=== PATIENT | female | born 1970 | race Caucasian/White ===

== ENCOUNTER → 2017-12-25 15:19 | Outpatient (POV) | payer BC, SELFPAY | PROVIDERS: Visit Provider Nurse Practitioner Acute Care | DX: Z00.00 Encounter for general adult medical examination without abnormal findings (principal) ==

== ENCOUNTER → 2018-07-11 16:40 | Outpatient (CLI) | payer BC, SELFPAY ==
--- NOTE | 2018-07-11 16:52 | XR_ITS ---
EXAM: XR cervical spine 2V HISTORY: ITS.REASON: NECK PAIN ORDERING PHYSICIAN: RODIR Pierre PATIENT AGE: 48 years COMPARISON: None FINDINGS: No fracture or dislocation. The disc spaces are well-preserved. There is 2 mm anterolisthesis of C3 on C4 which may be positional. No significant arthritic changes evident. IMPRESSION: No acute finding
== END ==
PROVIDERS: PCP Physician Assistant; Visit Provider Physician Assistant
DX: M54.2 Cervicalgia (principal)
CPT/HCPCS: 72040

== ENCOUNTER → 2018-08-13 15:27 | Outpatient (POV) | payer BC, SELFPAY | PROVIDERS: Visit Provider Nurse Practitioner Acute Care | DX: Z00.00 Encounter for general adult medical examination without abnormal findings (principal) ==

== ENCOUNTER → 2018-09-13 17:31 | Outpatient (CLI) | payer BC, SELFPAY ==
--- NOTE | 2018-09-13 17:35 | MM_ITS ---
MM Dig screening mamm BI w/CAD ORDERING PHYSICIAN : Hakeem Mckenna MD PATIENT AGE: 48 years GENDER: Female COMPARISON: January 2017, August 2017, left breast. May 2014,. Also October 2007 INDICATION: ITS.REASON: screening 48-year-old. Takes estrogen.. Previous benign needle biopsy left breast. No new complaints. Noncontributory family history. TECHNIQUE: Standard CC and MLO images were obtained. R2 CAD reviewed. Additional axillary cc view both breast included FINDINGS: . Dense heterogeneous breast bilaterally again evident. Mammography is of decreased sensitivity in breast of this overall increased density.. See no new areas of focal concern on today's mammogram and ultrasound or MR breast can be useful compliment/augment to mammography in breast of this increased density character. Multiple Prior films are helpful images show no discrete new findings. Similar asymmetric breast pattern pattern is similar to previous studies RIGHT BREAST: -Right breast appears stable. Follow-up in one year. LEFT BREAST:Asymmetric area breast density including deep upper-outer quadrant left breast is been seen previously and show no appreciable interval change. Follow up one year recommended. IMPRESSION: Dense breasts decreased sensitivity mammography but no significant new areas concern. Overall Stable bilateral mammogram Follow up one year recommended 2 BI-RADS Category: 2 Benign Finding(s) RECOMMENDED FOLLOW-UP: 1YR 1 YEAR FOLLOW-UP (A letter has been sent to the patient regarding results of the study.)
== END ==
PROVIDERS: PCP Family Medicine; Visit Provider Obstetrics & Gynecology
DX: Z12.31 Encounter for screening mammogram for malignant neoplasm of breast (principal)
CPT/HCPCS: 77067

== ENCOUNTER → 2019-06-04 11:52 | Outpatient (CLI) | payer BC, SELFPAY ==
--- NOTE | 2019-06-04 11:57 | XR_ITS ---
XR knee RT 3V HISTORY: Knee pain and swelling following injury ITS.REASON: FALL ON RIGHT KNEE ORDERING PHYSICIAN: Stefan Salgado MD PATIENT AGE: 48 years COMPARISON: None FINDINGS There is a nondisplaced oblique fractures of the superior aspect of the patella with a moderate size suprapatellar effusion. No other significant anomalies evident. IMPRESSION: Nondisplaced oblique fracture of the superior aspect of the patella with large size suprapatellar effusion
== END ==
PROVIDERS: PCP Family Medicine; Visit Provider Family Medicine
DX: M25.561 Pain in right knee (principal)
CPT/HCPCS: 73562

== ENCOUNTER 2019-06-05 14:40 | Outpatient (RCR) | payer BC, SELFPAY | END 2019-06-05 14:55 | disposition home or self-care (01) | LOC: PT 14:40 | PROVIDERS: Visit Provider Orthopaedic Surgery | DX: S82.001A Unspecified fracture of right patella, initial encounter for closed fracture (principal) | CPT/HCPCS: 97760 ==

== ENCOUNTER → 2019-06-24 08:40 | Outpatient (CLI) | payer BC, SELFPAY ==
--- NOTE | 2019-06-24 08:46 | XR_ITS ---
XR knee RT 3V HISTORY: ITS.REASON: rt knee pain follow-up patellar fracture ORDERING PHYSICIAN: Ana Carranza MD PATIENT AGE: 49 years COMPARISON: 06/04/2019 FINDINGS: Nondisplaced transverse fracture involves the superior aspect of the patella once again noted not significant change. Mild osteoarthritic changes noted of the medial compartment. The suprapatellar effusion has decreased in size. IMPRESSION: Decrease in the suprapatellar effusion. No change nondisplaced patellar fracture
== END ==
PROVIDERS: PCP Family Medicine; Visit Provider Orthopaedic Surgery
DX: S82.009A Unspecified fracture of unspecified patella, initial encounter for closed fracture (principal)
CPT/HCPCS: 73562

== ENCOUNTER → 2019-07-26 12:47 | Outpatient (CLI) | payer BC, SELFPAY ==
--- NOTE | 2019-07-26 12:57 | XR_ITS ---
PROCEDURE: XR KNEE RT 3V CLINICAL INDICATION: Rt Knee pain COMPARISON: No exams were available for comparison FINDINGS: There is an apparent nondisplaced incomplete fracture of the superior 3rd of the patella with the fracture line involving the articular cortex of the undersurface of the patella. There is underlying narrowing the patellofemoral space. There is no significant effusion noted. The medial and lateral joint space appear normal. IMPRESSION: Age indeterminate incomplete linear fracture superior 3rd of the patella Dictated by: Dr. Nicola Oliva MD 07/26/2019 13:[address] Nicola Oliva MD in [place] 07/26/2019 13:27
== END ==
PROVIDERS: PCP Family Medicine; Visit Provider Orthopaedic Surgery
DX: S82.001A Unspecified fracture of right patella, initial encounter for closed fracture (principal)
CPT/HCPCS: 73562

== ENCOUNTER → 2019-08-07 14:54 | Outpatient (CLI) | payer BC, SELFPAY ==
--- NOTE | 2019-08-07 15:07 | MR_ITS ---
PROCEDURE: MR KNEE RT WO CON CLINICAL INDICATION: Patella Fx Right knee pain, patellar fracture, pain and swelling COMPARISON: XR KNEE RT 3V from 07/26/2019 TECHNIQUE: Routine multiplanar multi echo sequences are performed without gadolinium enhancement. FINDINGS: The cruciate ligaments, collateral ligaments, patellar tendon, and quadriceps tendon have an unremarkable appearance. No evidence of meniscal tear. There is increased T2 signal involving the posterior aspect of the medial meniscus but does not meet strict MRI criteria for meniscal tear There is a fracture involving the superior pole of the patella with bone marrow edema involving the patella. Fracture line runs obliquely from the superior lateral aspect of the patella to the medial aspect slightly more inferior. The fracture is not distracted. Patellar cartilage is thinned along its lateral aspect. There is a small knee joint effusion. No patellar subluxation. There are mild osteoarthritic changes of the patellofemoral joint. There is a small knee joint effusion Bone marrow edema is present involving the medial aspect of the lateral femoral condyle. Small area of edema is present and the proximal tibia along the medial aspect of the lateral femoral condyle opposite the bone marrow edema within the distal femur consistent with bone contusions. Subarticular cystic changes involve the proximal tibia posteriorly near the insertion of the posterior cruciate ligament. IMPRESSION: 1. No evidence of internal derangement 2. Nondisplaced patellar fracture involving superior pole of the patella with bone marrow edema of the patella. 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 3. Bone bruise of the medial femoral condyle and medial aspect of the proximal tibia Dictated by: Chilango Ortez MD 08/09/2019 16:36 Electronically signed by Chilango Ortez MD in [place] 08/09/2019 16:36
== END ==
PROVIDERS: PCP Family Medicine; Visit Provider Orthopaedic Surgery
DX: S82.001A Unspecified fracture of right patella, initial encounter for closed fracture (principal)
CPT/HCPCS: 73721

== ENCOUNTER → 2019-09-09 15:15 | Outpatient (POV) | payer BC, SELFPAY | PROVIDERS: PCP Family Medicine; Visit Provider Nurse Practitioner Family | DX: Z00.00 Encounter for general adult medical examination without abnormal findings (principal) ==

== ENCOUNTER → 2019-09-13 07:48 | Outpatient (CLI) | payer BC, SELFPAY ==
--- NOTE | 2019-09-13 07:54 | XR_ITS ---
PROCEDURE: XR KNEE RT 3V CLINICAL INDICATION: knee pain Right knee pain COMPARISON: XR KNEE RT 3V from 07/26/2019 FINDINGS: No fracture or dislocation. No lytic or blastic change. There is normal mineralization. Minimal osteoarthritic change are present involving all 3 compartments. No fracture or dislocation. No lytic or blastic change. Small suprapatellar effusion is suspected. There does appear to be a nondisplaced fracture involving the superior aspect of the patella not significantly changed. IMPRESSION: No change nondisplaced patellar fracture with knee joint effusion and mild osteoarthritis Dictated by: Chilango Ortez MD 09/13/2019 13:43 Electronically signed by Chilango rOtez MD in [place] 09/13/2019 13:43
== END ==
PROVIDERS: PCP Family Medicine; Visit Provider Orthopaedic Surgery
DX: S82.001A Unspecified fracture of right patella, initial encounter for closed fracture (principal)
CPT/HCPCS: 73562

== ENCOUNTER 2019-09-17 09:00 | Outpatient (RCR) | payer BC, SELFPAY ==
--- NOTE | 2019-06-11 09:59 | HMH.PTOPEV ---
PT Outpatient Evaluation Rehab PT Outpatient Evaluation Start: 06/11/19 09:28 Freq: Status: Active Protocol: Document 06/11/19 09:28 ESPERANZA (Rec: 06/11/19 09:59 ESPERANZA [id number]) Electronically Signed By Isidro Blunt, PT 06/11/19 09:28 Outpatient Therapy Subjective History Subjective History Pt reports falling in garage at home on 06/03/19, Xrays revealed fx. of R patella. Pt placed in T-scope R knee brace locked at 0 degrees, which pt reports has improved wt. bearing stability. Pt reports mostly anterior R knee pain in origin, follow up 06/24/19. Chief Complaint Pain,Stiff,Swelling,Weakness Symptom Type Ache,Sharp,Dull Symptoms Relieved By Rest/Positioning,Ice Symptoms Aggravated By Standing,Walking Prior Functional Limitations None Current Functional Limitations Housework,Standing,Walking, Stairs Symptom Description Intermittent Level of pain today (0-10) 3 Pain scale - at its best (0-10) 0 Pain scale - at its worst (0-10) 6 Hip/Knee Eval Gait Observation General Gait Pattern Observation Antalgic Gait,Wide Based Gait Palpation Tenderness right Knee Palpation Finding Tenderness Knee Palpation Overall Comment 2-3/4 anterior jt line MMT Hip Flexion Strength Grade 3+ Fair+ Hip Abduction Strength Grade 3+ Fair+ Hip Adduction Strength Grade 3+ Fair+ Hip Extension Strength Grade 3+ Fair+ Knee Extension Strength Grade 3- Fair- Knee Flexion Strength Grade 3- Fair- ROM left Knee Flexion Active Range of Motion ( 0-135 degrees) right Knee Flexion Active Range of Motion ( 2-30 degrees) Knee ROM Limitations Pain Effusion joint effusion knee exam standard right Mid - Patellar Circumerential Measure ( 34.5 cm) Outpatient Therapy Assessment Impairments Problems/Impairmments Palpation Tenderness,Impaired Range of Motion,Impaired Strength,Impaired Gait Pattern ,Impaired Walking,Impaired Standing,Impaired Driving, Impaired Household Care, Impaired Stair Climbing, Impaired Squatting,Impaired Work Activities,Subjective C/O Pain,Impaired Self Care/Self Management Prognosis Rehab Potential Good
--- NOTE | 2019-08-06 16:11 | HMH.RHREAS ---
Rehab Reassessment Rehab OP Re-assessment Start: 08/06/19 16:06 Freq: Status: Active Protocol: Document 08/06/19 16:06 ESPERANZA (Rec: 08/06/19 16:10 ESPERANZA [id number]) Electronically Signed By Isidro Blunt, PT 08/06/19 16:06 Rehab Re-assessment Subjective Subjective PT REPORTS 0-2/10 ANTERIOR R KNEE PAIN ON VAS, AND FEELS PROGRESSIONS HAVE BEEN MADE WITH ROM AND STRENGTH SINCE I EVAL Objective Objective Notes AROM 0-125 MMT: R QUAD 3+/5, R HS 4-/5, R HIP FLX 4-/5, R HIP ABD/ADD/ EXT 4--4/5 TTP: PAT TENDON/ANT JT LINE 0- 11/23 R Assessment Progress Assessment Progressing as Expected Assessment Notes PT WITH MARKED IMPROVEMENT IN ROM, STRENGTH, AND GAIT Patient goals met STG'S 04/26 LTG'S 01/02 Goals Not Met STG'S 11/26, LTG'S 10/02 Plan Plan PT TO CONT. W/SKILLED P.T. TO MAKE FURTHER IMPROVEMENTS IN AROM, STRENGTH (QUAD CONTROL), TTP, AND GAIT TO ALLOW FOR OPTIMAL FUNCTION AND RETURN TO WORK FULL-DUTY Frequency of Therapy 1-2X/WK Duration of therapy 4-6 WKS Time and Billing Re-Eval Time 15 Re-Eval Billing Units 1 PHYSICIAN CERTIFICATION: I certify the specified therapy services for Anupama Liao are required, authorized, and reviewed every 30 days.
--- NOTE | 2019-09-05 08:50 | HMH.RHREAS ---
Rehab Reassessment Rehab OP Re-assessment Start: 08/06/19 16:06 Freq: Status: Active Protocol: Document 09/05/19 08:35 ESPERANZA (Rec: 09/05/19 08:50 ESPERANZA [id number]) Electronically Signed By Isidro Blunt, PT 09/05/19 08:35 Rehab Re-assessment Subjective Subjective PT REPORTS 0-2/10 R KNEE PAIN ON VAS, REPORTS CONTINUED SWELLING, AND FEELS 80% BETTER OVERALL SINCE I EVAL Objective Objective Notes AROM R KNEE FLX 0-125 MMT: R KNEE EXT 4-4+/5, FLX 4- 4+/5,R HIP FLX,ABD,ADD,EXT 4/5 TTP: R KNEE MEDIAL JT LINE 1/4 , LATERAL JT LINE 1/4 GAIT: MINIMALLY ANTALGIC, NO AD, 1-2 HRS AT HOME/COMMUNITY Assessment Progress Assessment Progressing as Expected Assessment Notes PT WITH IMPROVED STRENGTH, TTP , AROM, AND GAIT Patient goals met STG'S 05/26 LTG'S 08/02 Goals Not Met LTG'S 03/02 Plan Plan PT TO CONT. W/SKILLED P.T. TO MAKE FURTHER IMPROVEMENTS IN AROM, STRENGTH (QUAD CONTROL), TTP, AND GAIT TO ALLOW FOR OPTIMAL FUNCTION AND RETURN TO WORK FULL-DUTY Frequency of Therapy 1-2X/WK Duration of therapy 2-4 WKS Time and Billing Re-Eval Time 15 Re-Eval Billing Units 1 PHYSICIAN CERTIFICATION: I certify the specified therapy services for Anupama Liao are required, authorized, and reviewed every 30 days.
== END 2019-09-17 09:05 | disposition home or self-care (01) ==
LOC: PT 09:00
PROVIDERS: PCP Family Medicine; Visit Provider Orthopaedic Surgery
DX: S82.001A Unspecified fracture of right patella, initial encounter for closed fracture (principal)
CPT/HCPCS: 97010; 97014; 97016; 97110; 97163; 97164; G0283

== ENCOUNTER → 2019-09-19 17:47 | Outpatient (CLI) | payer BC, SELFPAY ==
--- NOTE | 2019-09-19 17:50 | MM_ITS ---
PROCEDURE: MM DIG SCREENING MAMM BI W/CAD CLINICAL INDICATION: screening There is no personal or family history of breast cancer. COMPARISON: [facility] DIG MAMM-SCREEN BAMBI W/CAD from 02/01/2017 D[facility] DIG MAMM-DX BAMBI W/CAD from 08/21/2017 [facility] MM Dig screening mamm BI w/CAD from 09/13/2018 TECHNIQUE: Standard CC and MLO images were obtained. R2 CAD reviewed. FINDINGS: Prominent diffuse somewhat heterogenic fibroglandular densities are seen. The findings are bilateral and symmetrical. There is no suspicious lesion and no suspicious microcalcifications. IMPRESSION: Moderate diffuse breast density with no suspicious lesions seen BI-RAD Category: 1 Negative FOLLOW-UP: 1YR 1 Year Follow-up (A letter has been sent to the patient regarding results of the study.) Dictated by: Dr. Nicola Oliva MD 09/23/2019 09:[address] Nicola Oliva MD in [place] 09/23/2019 09:36
== END ==
PROVIDERS: PCP Family Medicine; Visit Provider Obstetrics & Gynecology
DX: Z12.31 Encounter for screening mammogram for malignant neoplasm of breast (principal)
CPT/HCPCS: 77067

== ENCOUNTER → 2020-09-07 16:05 | Outpatient (CLI) | payer BC, SELFPAY ==
[2020-09-08 08:39] LABS: Adenovirus,PCR Not Detected (NotDetected); Bordetella Pertussis Not Detected (NotDetected); Chlamydophila Pneumoniae, PCR Not Detected (NotDetected); Coronavirus 19, PCR Not Detected (NotDetected); Coronavirus 229E Not Detected (NotDetected); Coronavirus NL63 Not Detected (NotDetected); Coronavirus OC43 Not Detected (NotDetected); Coronovirus HKU1,PCR Not Detected (NotDetected); Human Metapneumovirus Not Detected (NotDetected); Influenza A, PCR Not Detected (NotDetected); Influenza AH1, 2009 Not Detected (NotDetected); Influenza AH1, PCR Not Detected (NotDetected); Influenza AH3,PCR Not Detected (NotDetected); Influenza B, PCR Not Detected (NotDetected); Mycoplasma Pneumoniae, PCR Not Detected (NotDetected); Parainfluenza 1, PCR Not Detected (NotDetected); Parainfluenza 2, PCR Not Detected (NotDetected); Parainfluenza 3, PCR Not Detected (NotDetected); Parainfluenza 4, PCR Not Detected (NotDetected); Respiratory Syncytial Virus Not Detected (NotDetected); Rhinovirus/Enterovirus Not Detected (NotDetected)
== END ==
PROVIDERS: PCP Family Medicine; Visit Provider Family Medicine
DX: Z03.818 Encounter for observation for suspected exposure to other biological agents ruled out (principal)
CPT/HCPCS: 87581; 87633; 87798; U0003; U0004

== ENCOUNTER → 2020-09-14 15:05 | Outpatient (POV) | payer BC, SELFPAY | PROVIDERS: Visit Provider Nurse Practitioner Family | DX: Z00.00 Encounter for general adult medical examination without abnormal findings (principal) ==

== ENCOUNTER → 2020-09-24 07:53 | Outpatient (CLI) | payer BC, SELFPAY ==
--- NOTE | 2020-09-24 07:53 | MM_ITS ---
PROCEDURE: MM DIG SCREENING MAMM BI W/CAD Digital Breast Tomosynthesis Included CLINICAL INDICATION: Routine Screening Mammogram There is no personal or family history of breast cancer. There has been a previous biopsy left breast for benign disease. COMPARISON: MG DMDB DIG MAMM-DX BAMBI W/CAD from 08/21/2017 MG [facility] MM Dig screening mamm BI w/CAD from 09/13/2018 MG MM DIG SCREENING MAMM BI W/CAD from 09/19/2019 TECHNIQUE: Standard CC and MLO images and 3D Tomosynthesis was obtained. R2 CAD reviewed. FINDINGS: Moderate diffuse fibroglandular densities are seen throughout both breast. The findings are bilateral symmetrical. There is no suspicious lesion and no suspicious microcalcifications. There are several tiny nodes in both axilla. IMPRESSION: Moderate diffuse breast density with no suspicious lesions seen BI-RAD Category: 1 Negative FOLLOW-UP: 1YR 1 Year Follow-up (A letter has been sent to the patient regarding results of the study.) Dictated by: Dr. Nicola Oliva MD 09/29/2020 08:31 Dr. Nicola Oliva MD in [place] 09/29/2020 08:31
== END ==
PROVIDERS: PCP Family Medicine; Visit Provider Obstetrics & Gynecology
DX: Z12.31 Encounter for screening mammogram for malignant neoplasm of breast (principal)
CPT/HCPCS: 77063; 77067

== ENCOUNTER → 2020-10-13 13:30 | Outpatient (POV) | payer BC, SELFPAY | PROVIDERS: Visit Provider Dermatology | DX: Z00.00 Encounter for general adult medical examination without abnormal findings (principal) ==

== ENCOUNTER → 2020-11-14 11:29 | Outpatient (CLI) | payer BC, SELFPAY | PROVIDERS: PCP Family Medicine; Visit Provider Family Medicine | DX: Z03.818 Encounter for observation for suspected exposure to other biological agents ruled out (principal) | CPT/HCPCS: U0003 ==

== ENCOUNTER → 2021-02-03 12:53 | Outpatient (CLI) | payer BC, SELFPAY ==
[2021-02-03 13:46] LABS: Coronavirus 19 IgG Antibody Negative (Negative); Coronavirus 19 IgM Antibody Negative (Negative)
== END ==
PROVIDERS: Visit Provider Internal Medicine Gastroenterology
DX: Z01.818 Encounter for other preprocedural examination (principal); Z20.822 Contact with and (suspected) exposure to COVID-19; Z13.810 Encounter for screening for upper gastrointestinal disorder; R13.10 Dysphagia, unspecified
CPT/HCPCS: 36415; 86328

== ENCOUNTER 2021-02-05 07:41 | Day surgery (SDC) | payer BC, SELFPAY ==
[2021-01-29 14:08] VITALS: BMI 24.0
[2021-02-05] VITALS (7 sets, daily range): BP systolic 100–178; BP diastolic 70–76; PULSE 54–67; RESP 16–18; TEMP 35.5–36.1; O2SAT 95–97
--- NOTE | 2021-02-05 09:36 | P.PCN_ITS ---
[facility] Procedure Note Procedure Note:: Upper Endoscopy Procedure Report: Esophagogastroduodenoscopy with cold biopsies and TTS balloon dilation Endoscopost: Justus Aguirre II, MD Referring Physician: Billy Salgado MD Date of Procedure: February 05, 2021 Equipment: Olympus GIF 190 standard upper endoscope Sedation: MAC sedation Indications: Mrs. Liao is a 50-year-old female who is here for diagnostic upper endoscopy secondary to dysphagia. This is primarily to solid foods. She does have some globus sensation. The patient reports some chest pressure and heartburn. She reports no bloating or belching. She does get some dyspepsia with epigastric discomfort. She reports no early satiety. The patient does state that most of her symptoms have improved since the initiation of domperidone previously. She did have panendoscopy with me in March 2017. At that time her EGD showed nonerosive GERD with mild esophageal dysmotility. She also had reactive gastropathy with bile reflux. The patient has had extensive evaluation with cardiology and pulmonology for her noncardiac chest pain and this has been felt to be esophageal chest pain. She does take buspirone by mouth twice daily for visceral sensitivity. She also has been on the combine fiber bowel regimen (MiraLAX plus Metamucil). The patient does report a sore throat and frequent clearance of the throat. Procedure: Prior to the procedure, a history and physical exam was performed, and patient's medications and allergies were reviewed. The risks, benefits and alternatives of the sedation and procedure were discussed with the patient. All questions were answered and informed consent was obtained. The patient was brought to the procedure room. Patient identification and proposed procedure were verified by the physician and the nurse. The patient was placed in a left lateral decubitus position and the scope was passed under direct vision. Throughout the proc edure, the patient's blood pressure, pulse, and oxygen saturations were monitored continuously. The upper GI endoscopy was accomplished without difficulty. The patient tolerated the procedure well. Findings: The scope was passed directly into the upper esophagus and advanced to the third portion of the duodenum. The post bulbar duodenum and duodenal bulb were normal with normal mucosa and conniventes. The scope was withdrawn through a normal duodenal bulb and pylorus into the stomach. There was evidence of mild linear reactive gastropathy of the antrum and body of the stomach. The remain jamshid of the fundus of the stomach were grossly normal. Upon retroflexion there was no hiatal hernia. 2 biopsies were taken in the antrum and along the lesser curvature for histology to rule out gastritis and/or H pylori. The scope was then withdrawn into the esophagus. There was esophageal corrugation with linear striation and furrowing suggestive of eosinophilic esophagitis. Biopsies were taken from the distal and proximal esophagus separately. There was some mild luminal stenosis of the esophagus and the esophagus was dilated up to 19 mm (57 [place]) with a TTS hydrostatic balloon. There was some resistance at the cricopharyngeus. The remainder of the esophageal mucosa was normal. Impression: 1. 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 Esophageal corrugation and furrowing suggestive of eosinophilic esophagitis 3. Nonerosive GERD 4. Mild linear reactive gastropathy of antrum/body of stomach Plan: I will follow-up the biopsies. I would encourage PPI therapy (omeprazole 40 mg by mouth) daily. I will discuss additional treatment options. I will obtain Rast food allergy testing today.
--- NOTE | 2021-02-05 09:55 | HMH.ANESCL ---
[facility] Anesthesia Checklist - Structural Data Admitted From: Home Planned Operative Procedure/s: egd Consent for Planned Operative Procedure(s) Verified: Yes - Airway Assessment C-Spine Mobility Assessed: Yes TMJ Mobility Assessed: Yes Dentition: Good Dentition - Neurological Assessment Level of Consciousness: Awake, Alert, Appropriate - Anesthesia Plan Anesthesia Risk discussed: Yes Anesthesia Plan: Verified ASA Class: II Anesthesia Type: MAC [facility] History I have reviewed the patient's past medical history: Yes Medical History: Denies:: Cancer, Diabetes Mellitus Type 1, Diabetes Mellitus Type 2, Internal Pacemaker, MRSA, Seizures *Have you ever received a pneumonia vaccine?: No *Have you received a flu vaccine this season?: Yes Other Medical History: Reports: Other Anesthesia experience/problems:: none Laterality Cases: Right: Arthroscopy Knee, Bilateral: Carpal Tunnel Release Other Surgeries: Yes: Hysterectomy-Total, Other. No: Pacemaker Amputation: No Fractures: No - *Social History Last grade of school completed: Some college Smoking Status: Never smoker Alcohol Intake: current Alcohol Intake Frequency:: holidays/special occasions only Substance Use Type: denies use *Occupational Status:: retired Housing: house Household Members: spouse *Travel in the last 8 weeks: None Family Hx:: Diabetes, Heart Attack
[2021-02-09 11:12] LABS: F001-IgE Egg White <0.10 kU/L (Class 0); F002-IgE Milk <0.10 kU/L (Class 0); F003-IgE Codfish <0.10 kU/L (Class 0); F004-IgE Wheat 0.39 kU/L (Class I); F013-IgE Peanut <0.10 kU/L (Class 0); F014-IgE Soybean <0.10 kU/L (Class 0); F024-IgE Shrimp <0.10 kU/L (Class 0); F256-IgE Walnut <0.10 kU/L (Class 0); F338-IgE Scallop <0.10 kU/L (Class 0)
[2021-02-09 13:38] LABS: F010-IgE Sesame Seed <0.10 kU/L (Class 0)
== END 2021-02-05 10:20 | disposition home or self-care (01) ==
LOC: OUTP 07:45
PROVIDERS: PCP Family Medicine; Visit Provider Internal Medicine Gastroenterology
PROC: 0DJ08ZZ Inspection of Upper Intestinal Tract, Via Natural or Artificial Opening Endoscopic (ICD-10-PCS; CPT 43235; principal; 2021-02-05 09:00)
DX: J39.2 Other diseases of pharynx (principal); K22.9 Disease of esophagus, unspecified; K21.9 Gastro-esophageal reflux disease without esophagitis; K31.9 Disease of stomach and duodenum, unspecified; D64.9 Anemia, unspecified; Z87.39 Personal history of other diseases of the musculoskeletal system and connective tissue; Z83.3 Family history of diabetes mellitus; Z82.3 Family history of stroke; Z79.82 Long term (current) use of aspirin; Z79.899 Other long term (current) drug therapy
CPT/HCPCS: 43239; 43249; 36415; 86003; 86008; C1726

== ENCOUNTER → 2021-08-10 13:54 | Outpatient (CLI) | payer BC, SELFPAY | PROVIDERS: PCP Physician Assistant; Visit Provider Nurse Practitioner | DX: Z20.822 Contact with and (suspected) exposure to COVID-19 (principal) | CPT/HCPCS: C9803; U0003; U0005 ==

== ENCOUNTER → 2021-11-08 07:51 | Outpatient (CLI) | payer BC, SELFPAY ==
--- NOTE | 2021-11-08 07:52 | MM_ITS ---
PROCEDURE INFORMATION: Exam: MG Bilateral Screening 3D Mammography Exam date and time: 11/08/2021 7:52 AM Age: 51 years old Clinical indication: Encounter for screening mammogram for malignant neoplasm of breast TECHNIQUE: Imaging protocol: Bilateral screening tomosynthesis and 2D mammography including computer-aided detection (CAD) when performed. COMPARISON: 1. MG MM DIG SCREENING MAMM BI W/CAD 09/24/2020 8:08 AM 2. MG MM DIG SCREENING MAMM BI W/CAD 09/19/2019 5:57 PM 3. MG [facility] MM Dig screening mamm BI w/CAD 09/13/2018 5:54 PM FINDINGS: MAMMOGRAPHY: Breast composition: The breasts are heterogeneously dense, which may obscure small masses. Mass: No suspicious masses. Architectural distortion: No suspicious distortion. Calcifications: No suspicious calcifications. Asymmetric density: None. Skin thickening: None. Axillary adenopathy: None. IMPRESSION: No mammographic evidence of malignancy. Annual screening is recommended unless otherwise clinically indicated. ASSESSMENT: BI-RADS Category 1: Negative
== END ==
PROVIDERS: PCP Physician Assistant; Visit Provider Obstetrics & Gynecology
DX: Z12.31 Encounter for screening mammogram for malignant neoplasm of breast (principal)
CPT/HCPCS: 77063; 77067

== ENCOUNTER 2021-12-17 11:21 | Emergency (ER) | payer BC, SELFPAY ==
[2021-12-17 11:42] VITALS: BP 126/74; PULSE 76; RESP 18; TEMP 37.1; O2SAT 96; BMI 24.9
[2021-12-17 11:47] LABS: UTC Influenza A Antigen Negative (Negative); UTC Influenza B Antigen Negative (Negative)
--- NOTE | 2021-12-17 11:53 | HMH.EDUTC ---
[facility] [place] Disposition Clinical Impression: Viral syndrome, Exposure to COVID-19 virus Sinusitis Qualifiers: Sinusitis location: unspecified location Chronicity: acute Recurrence: non-recurrent Qualified Code(s): J01.90 - Acute sinusitis, unspecified Disposition: Home, Self-Care Condition on Discharge: Good Instructions: DI for Sinusitis, DI for COVID-19 (Suspected or Confirmed ), Preventing the Spread of Coronavirus Discharge Instructions Additional Instructions: Drink plenty of fluids. Take tylenol or ibuprofen for pain or fever. Take the medications as directed. Follow up with your regular doctor. GO TO THE ER FOR ANY WORSENING SYMPTOMS Quarantine until you know the results of your covid-19 test. Notify your school or workplace of your results and follow their instructions regarding return to work/school. Don't start the oral steroids until tomorrow, since you had the shot here today. Prescriptions: Benzonatate [Benzonatate 100mg cap] 100 mg PO TIDP PRN #30 cap PRN Reason: Cough Transmission Status: Received by [id number] methylPREDNISolone [Medrol] 4 mg PO DIRECTED 6 Days #21 packet Transmission Status: Received by [id number] Azithromycin [Z-Aleksandar 250mg Tab*] 250 mg PO UD DOSE PK #6 tab Transmission Status: Received by [id number] Referrals: Sergio Amaya MD [Primary Care Provider] - Time of Disposition: 12:32 Medical Decision Making - Medical Records Medical records reviewed: No: I reviewed the patient's medical records. - Jerry Inquiry Pt receiving controlled substance: No Vital Signs: 12/17/21 11:42 12/17/21 13:27 Temperature 98.8 F 98.8 F Temperature Source Oral Pulse Rate 76 Pulse Rate [Left] 76 Respiratory Rate 18 18 Blood Pressure 126/74 Blood Pressure [Right Arm] 126/74 Blood Pressure Mean [Right Arm] 91 02 Sat by Pulse Oximetry 96 - Lab Data Lab results reviewed: Yes: I reviewed the patient's lab results. Lab Results 12/17/21 11:38: Influenza Type A Ag Negative, Influenza Type B Ag Negative Orders (Tests/Meds): ED MEDICATIONS Discontinued Medications Generic Name Dose Route Start Last Admin Trade Name Freq PRN Reason Stop Dose Admin Ketorolac Tromethamine 60 mg 12/17/21 12:24 12/17/21 12:30 Ketorolac 60mg/2ml Vial IM 12/17/21 12:25 60 mg ONCE ONE Administration Methylprednisolone Sodium Succinate 125 mg 12/17/21 12:24 12/17/21 12:30 Methylprednisolone Sod Succ 125mg Vial IM 12/17/21 12:25 125 mg ONCE ONE Administration [facility] HPI - General Stated complaint: congestion Time Seen by Provider: 12/17/21 11:53 Mode of Arrival: Ambulatory Source of Information: Patient Limitations: No Limitations Description of Symptoms (Recalled from Triage Doc. by RN): pt c/o cough, congestion, RODRIGUEZ and SOA since yesterday. HEENT Symptoms (Recalled from RN notes): Yes (congestion and RODRIGUEZ) Resp Symptoms (Recalled from RN notes): Yes (cough and SOA) Skin Symptoms (Recalled from RN notes): No MS Symptoms (Recalled from RN notes): No Functional Status (Recalled from RN notes): wnl - History of Present Illness Provider Complaint: She states that for the past 3 days she has had sinus congestion, headache, chills and she has felt very bad. She has been fully vaccinated against covid-19. 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 - Related Data Home Medications Medication Instructions Recorded Confirmed aspirin 81 mg tablet,delayed 81 mg PO DAILY 10/18/18 11/25/21 release biotin 1 mg capsule 1 mg PO DAILY 10/18/18 11/25/21 buspirone 10 mg tablet 10 mg PO BID 10/18/18 11/25/21 cholecalciferol (vitamin D3) 10 400 unit PO DAILY 10/18/18 11/25/21 mcg (400 unit) capsule fremanezumab-vfrm 225 mg/1.5 mL 225 mg SQ QMONTH 10/18/18 11/25/21 subcutaneous syringe multivitamin 1 cap PO DAILY 10/18/18 11/25/21
[2021-12-17 13:27] VITALS: BP 126/74; PULSE 76; RESP 18; TEMP 37.1
== END 2021-12-17 13:28 | disposition home or self-care (01) ==
PROVIDERS: Emergency Provider Nurse Practitioner Family; PCP Family Medicine
DX: J01.90 Acute sinusitis, unspecified (principal); Z20.822 Contact with and (suspected) exposure to COVID-19
CPT/HCPCS: 87804; 96372; 99202; C9803; G0463; U0003; U0005

== ENCOUNTER → 2022-01-05 12:45 | Outpatient (CLI) | payer BC, SELFPAY ==
--- NOTE | 2022-01-05 13:09 | US_ITS ---
PROCEDURE INFORMATION: Exam: US Left Breast, Complete Exam date and time: 01/05/2022 1:09 PM Age: 51 years old Clinical indication: Left upper outer quadrant breast pain TECHNIQUE: Imaging protocol: Complete ultrasound of all four quadrants of the Left breast and the retroareolar regions, including ultrasound of the axilla when performed. COMPARISON: BL US BREAST-LT COMPLETE W/AXILLA 05/19/2015 11:15 AM FINDINGS: Breast: Sonographic images of the left breast including the retroareolar region, all 4 quadrants and the axilla do not demonstrate any solid or cystic masses. No architectural distortion or acoustical shadowing. No skin thickening or axillary adenopathy. IMPRESSION: No sonographic evidence of malignancy. Annual mammographic screening is recommended in October 2022 unless otherwise clinically indicated. ASSESSMENT: BI-RADS Category 1: Negative
== END ==
PROVIDERS: PCP Family Medicine; Visit Provider Physician Assistant
DX: N64.4 Mastodynia (principal)
CPT/HCPCS: 76641

== ENCOUNTER → 2022-06-22 11:57 | Outpatient (CLI) | payer BC, SELFPAY | PROVIDERS: PCP Physician Assistant; Visit Provider Nurse Practitioner Family | DX: Z11.1 Encounter for screening for respiratory tuberculosis (principal) | CPT/HCPCS: 86580 ==

== ENCOUNTER 2022-12-19 21:59 | Emergency (ER) | payer BC, SELFPAY ==
[2022-12-19 22:00] VITALS: BP 113/66; PULSE 87; RESP 19; TEMP 36.9; O2SAT 100; BMI 20.3
--- NOTE | 2022-12-19 22:05 | ECG_ITS ---
APPROVED REPORT Exam: Resting ECG HR:78 bpm ECG Measurements Heart Rate 78 AXES NM 133 P 79 QRSd 111 QRS 64 QT 395 T 73 QTc 429 Conclusion SINUS RHYTHM INDETERMINATE AXIS RIGHT BUNDLE BRANCH BLOCK [120+ ms QRS DURATION, UPRIGHT V1, 40+ ms S IN I/aVL/V4/V5/V6] ABNORMAL ECG UNCONFIRMED REPORT Electronically signed by : Jose Ling MD 12/20/2022 19:53:17
--- NOTE | 2022-12-19 22:18 | XR_ITS ---
PROCEDURE INFORMATION: Exam: XR Chest Exam date and time: 12/19/2022 10:55 PM Age: 52 years old Clinical indication: Other: Syncope TECHNIQUE: Imaging protocol: Radiologic exam of the chest. Views: 2 views. COMPARISON: CR CXR CHEST(2 VIEWS-NOT PORTABLE) 05/19/2017 4:22 PM FINDINGS: Lungs: Unremarkable. No consolidation. Pleural spaces: Unremarkable. No pleural effusion. No pneumothorax. Heart/Mediastinum: Unremarkable. No cardiomegaly. Bones/joints: Unremarkable. IMPRESSION: No acute findings.
--- NOTE | 2022-12-19 22:18 | CT_ITS ---
PROCEDURE INFORMATION: Exam: CT Abdomen And Pelvis With Contrast Exam date and time: 12/19/2022 11:18 PM Age: 52 years old Clinical indication: Nausea and vomiting and other: Diarrhea; Additional info: Abd pain TECHNIQUE: Imaging protocol: Computed tomography of the abdomen and pelvis with contrast. Radiation optimization: All CT scans at this facility use at least one of these dose optimization techniques: automated exposure control; mA and/or kV adjustment per patient size (includes targeted exams where dose is matched to clinical indication); or iterative reconstruction. Contrast material: ISOVUE; Contrast volume: 75 ml; Contrast route: IV; Other protocol: This patient has received 0 known CTs and 0 known cardiac nuclear medicine studies in the 12 months prior to the current study. COMPARISON: CR XR CHEST 2V 12/19/2022 10:55 PM FINDINGS: Liver: A few scattered small simple appearing cysts are noted in the liver, the largest measuring 2.7 cm in the dome of the liver. Gallbladder and bile ducts: Normal. No calcified stones. No ductal dilation. Pancreas: Normal. No ductal dilation. Spleen: Normal. No splenomegaly. Adrenal glands: Normal. No mass. Kidneys and ureters: Normal. No hydronephrosis. Stomach and bowel: Unremarkable. No obstruction. No mucosal thickening. Appendix: No evidence of appendicitis. Intraperitoneal space: Unremarkable. No free air. No significant fluid collection. Vasculature: Unremarkable. No abdominal aortic aneurysm. Lymph nodes: Unremarkable. No enlarged lymph nodes. Urinary bladder: Unremarkable as visualized. Reproductive: The uterus is surgically absent. No adnexal abnormality seen. Bones/joints: Mild degenerative disc changes are noted in the lower thoracic spine. Bones are otherwise unremarkable. Soft tissues: Unremarkable. IMPRESSION: No acute abnormality evident in the abdomen or pelvis. Incidentally noted liver cysts and degenerative changes of the spine as described.
[2022-12-19 22:20] LABS: POC Glucose,Bedside 176 (70-110)
[2022-12-19 22:21] LABS: Coronavirus 19, PCR Not Detected (NotDetected); Influenza A, PCR Not Detected (NotDetected); Influenza B, PCR Not Detected (NotDetected)
[2022-12-19 22:22] LABS: Basophils % 0.2 % (0.1-2.0); Eosinophils # 0.1 K/mm3 (0.0-0.4); Eosinophils % 0.7 % (0.1-12.0); Hemoglobin 13.2 g/dL (12.2-16.2); Lymphocytes # 0.8 K/mm3 (0.7-4.5); Lymphocytes % 5.5 % (10-50); Mean Corpuscular HGB Conc 32.2 g/dL (31.8-35.4); Mean Corpuscular Hemoglobin 28.3 pg (27.0-31.2); Mean Corpuscular Volume 87.8 fl (81-99); Monocytes # 0.5 K/mm3 (0.1-1.0); Monocytes % 3.8 % (1.7-9.3); Neutrophils # 12.3 K/mm3 (1.8-7.8); Neutrophils % 89.8 % (37.0-80.0); Platelet Count 339 K/mm3 (142-424); Red Blood Count 4.67 M/mm3 (4.20-5.40); Red Cell Distribution Width 13.1 % (11.5-17.5); White Blood Count 13.7 K/mm3 (4.8-10.8)
[2022-12-19 22:25] LABS: MANUAL DIFFERENTIAL MANUAL DIFFERENTIAL (MANUAL DIFF)
[2022-12-19 22:28] LABS: Alanine Aminotransferase 30 U/L (12-78); Albumin Level 4.8 g/dl (3.5-5.0); Albumin/Globulin Ratio 1.8 (1.1-1.8); Alkaline Phosphatase 76 U/L (38-126); Amylase 86 U/L (30-110); Anion Gap 14.6 mEq/L (5-15); Aspartate Amino Transferase 38 U/L (14-36); Bilirubin,Total 0.5 mg/dl (0.2-1.3); Blood Urea Nitrogen 27 mg/dl (7-17); Calcium 9.3 mg/dl (8.4-10.2); Carbon Dioxide 27 mmol/L (22.0-30.0); Chloride 102 mmol/L (98-107); Creatinine Clearance Estimated 68 mL/min (50-200); Estimated Glomerular Filt Rate 66 ml/min (>60); GFR (African American) 80 ML/MIN (>60); Globulin 2.7 g/dL (1.3-3.2); Glucose 171 mg/dl (74-100); Lipase 150 U/L (23-300); Potassium 3.6 mmoL/L (3.5-5.1); Sodium 140 mmol/L (136-145); Total Protein,Serum 7.5 g/dl (6.3-8.2)
[2022-12-19 22:30] LABS: Lactic Acid 1.8 mmol/L (0.7-2.1)
[2022-12-19 22:34] LABS: C-Reactive Protein 1.1 mg/L (0-4)
[2022-12-19 22:43] LABS: Troponin I < 0.01 ng/ml (0.00-0.034)
[2022-12-19 22:47] LABS: Procalcitonin 0.533 ng/mL (0.0-2.0)
[2022-12-19 22:50] LABS: Erythrocyte Sedimentation Rate 12 mm/hr (0-30)
--- NOTE | 2022-12-19 23:02 | HMH.EDNVD ---
Discharge Plan Disposition Patient Disposition: Home, Self-Care Prescriptions Prescriptions: New ondansetron 4 mg tablet,disintegrating 4 mg PO Q8H PRN (Reason: nausea and vomiting) 5 Days Qty: 20 0RF No Action cyanocobalamin (vitamin B-12) 1,000 mcg capsule 1,000 mcg PO DAILY omeprazole 10 mg capsule,delayed release(DR/EC) 10 mg PO DAILY Ajovy Syringe 225 mg/1.5 mL syringe 225 mg SQ QMONTH buspirone 10 mg tablet 10 mg PO BID aspirin [Adult Low Dose Aspirin] 81 mg tablet,delayed release (DR/EC) 81 mg PO DAILY cholecalciferol (vitamin D3) 400 unit capsule 400 unit PO DAILY multivitamin capsule 1 cap PO DAILY biotin 1 mg capsule 1 mg PO DAILY Domperidone [Domperidone 10mg Tab] 10 MG tablet 10 mg PO QID Referrals Follow up/Referrals: Provider,Referral, MD [Primary Care Provider] - See instructions Clinical Impressions Clinical Impression: Gastroenteritis Stand Alone Forms Stand Alone Forms: Work/School Release Instructions Patient Instructions: DI for Diarrhea and Traveler's Diarrhea -- Adult, DI for Nausea -- Adult Discharge ED Provider: Anastacio (ED)Brodie Nausea/Vomiting/Diarrhea HPI General Chief complaint: Nausea/Vomiting/Diarrhea Stated complaint: fainting, abd pain Time Seen by Provider: 12/19/22 23:03 Mode of Arrival: Ambulatory Source of Information: Patient and Spouse Limitations: No Limitations Description of Symptoms (Recalled from ER Triage Doc. by RN): 52 F presents with 4 episodes of syncope, N/V/D, and generalized weakness that began approximately 1600 this date. Reports her had a stomach flu yesterday and she believes she has caught it. Patient reports continued watery diarrhea. History of Present Illness HPI Narrative: vomiting and diarrhea today w/o known contact and has general weakness and has episodes of light- headed MD complaint: nausea, vomiting and diarrhea Onset (ago): hour(s) Description of Vomiting: watery Associated Abdominal Pain: Yes Location of pain: diffuse Severity: moderate Consistency: intermittent Associated symptoms: weakness Related Data Home Medications Medication Instructions Recorded Confirmed aspirin 81 mg tablet,delayed 81 mg PO DAILY heart healthy 10/18/18 11/25/21 release (Adult Low Dose Aspirin) biotin 1 mg capsule 1 mg PO DAILY Supplement 10/18/18 11/25/21 buspirone 10 mg tablet 10 mg PO BID . 10/18/18 11/25/21 cholecalciferol (vitamin D3) 10 400 unit PO DAILY Supplement 10/18/18 11/25/21 mcg (400 unit) capsule fremanezumab-vfrm 225 mg/1.5 mL 225 mg SQ QMONTH migraines 10/18/18 11/25/21 subcutaneous syringe (Ajovy Syringe) multivitamin 1 cap PO DAILY daily 10/18/18 11/25/21 Domperidone [Domperidone 10mg Tab] 10 mg PO QID . 01/29/21 11/25/21 cyanocobalamin (vitamin B-12) 1,000 mcg PO DAILY 11/25/21 11/25/21 1,000 mcg capsule omeprazole 10 mg capsule,delayed 10 mg PO DAILY 11/25/21 11/25/21 release Previous Rx's Medication Instructions Recorded ondansetron 4 mg disintegrating 4 mg PO Q8H PRN nausea and 12/20/22 tablet vomiting 5 days #20 tabs Allergies Allergy/AdvReac Type Severity Reaction Status Date / Time No Known Allergies Allergy Verified 11/25/21 13:43 [facility] Disclaimer: The information contained in this section may have been updated after the patient was seen, as this information can be updated by other users. Social History Smoking Status: Never smoker second hand exposure: Yes alcohol intake: current substance use type: denies use current occupational status: retired Travel in the last 8 weeks: None household members: spouse housing: house caffeine: Yes ROS Obtained: Yes All systems reviewed & no additional complaints except as documented Physical Exam General General appearance: alert Head Head exam: normocephalic Eye Eye exam: Present PERRL and EOMI; Absent scleral icterus ENT ENT e
[2022-12-19 23:10] LABS: Eosinophils % 1 % (0-3); Lymphocytes % 5 % (10-50); Monocytes % 2 % (2-9); Neutrophils % 92 % (42-76); Total Cells Counted 100
[2022-12-19 23:14] LABS: Ovalocytes 1+; Platelet Estimate Normal
[2022-12-20 00:27] VITALS: BP 100/64; PULSE 81; RESP 16; TEMP 36.9; O2SAT 97
[2022-12-20 00:32] VITALS: BP 90/70; PULSE 62; RESP 18; TEMP 37.2; O2SAT 100
== END 2022-12-20 01:03 | disposition home or self-care (01) ==
PROVIDERS: Emergency Provider Emergency Medicine
DX: K52.9 Noninfective gastroenteritis and colitis, unspecified (principal); Z20.822 Contact with and (suspected) exposure to COVID-19
CPT/HCPCS: 71046; 74177; 80053; 82150; 82962; 83605; 83690; 84145; 84484; 85007; 85025; 85651; 86140; 93005; 96361; 96374; 96375; 99285; C9803; J2405; Q9967; U0003; U0005

== ENCOUNTER → 2023-02-07 08:00 | Outpatient (CLI) | payer BC, SELFPAY ==
--- NOTE | 2023-02-07 08:02 | MM_ITS ---
PROCEDURE INFORMATION: Exam: MG Bilateral Screening 3D Mammography Exam date and time: 02/07/2023 7:53 AM Age: 52 years old Clinical indication: Screening examination TECHNIQUE: Imaging protocol: Bilateral Screening tomosynthesis and 2D mammography including computer-aided detection (CAD) when performed. COMPARISON: 1. MG MM DIG SCREENING MAMM BI W/CAD 11/08/2021 8:02 AM 2. MG MM DIG SCREENING MAMM BI W/CAD 09/24/2020 8:08 AM 3. MG MM DIG SCREENING MAMM BI W/CAD 09/19/2019 5:57 PM FINDINGS: MAMMOGRAPHY: Breast composition: The breasts are heterogeneously dense, which may obscure small masses. Mass: No suspicious masses. Architectural distortion: No suspicious distortion. Calcifications: No suspicious calcifications. Asymmetric density: None. Skin thickening: None. Axillary adenopathy: None. IMPRESSION: No mammographic evidence of malignancy. Annual screening is recommended unless otherwise clinically indicated. ASSESSMENT: BI-RADS Category 1: Negative
== END ==
PROVIDERS: PCP Physician Assistant; Visit Provider Physician Assistant
DX: Z12.31 Encounter for screening mammogram for malignant neoplasm of breast (principal)
CPT/HCPCS: 77063; 77067

== ENCOUNTER → 2023-02-10 08:15 | Outpatient (CLI) | payer BC, SELFPAY ==
--- NOTE | 2023-02-10 08:41 | ECG_ITS ---
APPROVED REPORT Exam: Resting ECG HR:59 bpm ECG Measurements Heart Rate 59 AXES UT 139 P 71 QRSd 105 QRS 55 QT 415 T 45 QTc 415 Conclusion SINUS BRADYCARDIA INCOMPLETE RIGHT BUNDLE BRANCH BLOCK [90+ ms QRS DURATION, TERMINAL R IN V1/V2, 40+ ms S IN I/aVL/V4/V5/V6] BORDERLINE ECG UNCONFIRMED REPORT Electronically signed by : Jose Ling MD 02/10/2023 15:30:11
[2023-02-10 09:14] LABS: Basophils # 0.1 K/mm3 (0-0.2); Basophils % 2.3 % (0.1-2.0); Eosinophils # 0.1 K/mm3 (0.0-0.4); Eosinophils % 3.5 % (0.1-12.0); Hematocrit 36.1 % (37.0-47.0); Lymphocytes # 1.2 K/mm3 (0.7-4.5); Lymphocytes % 30.3 % (10-50); Mean Corpuscular HGB Conc 33.3 g/dL (31.8-35.4); Mean Corpuscular Hemoglobin 29.2 pg (27.0-31.2); Mean Corpuscular Volume 87.8 fl (81-99); Monocytes # 0.3 K/mm3 (0.1-1.0); Monocytes % 8.5 % (1.7-9.3); Neutrophils # 2.2 K/mm3 (1.8-7.8); Neutrophils % 55.4 % (37.0-80.0); Platelet Count 332 K/mm3 (142-424); Red Blood Count 4.11 M/mm3 (4.20-5.40); Red Cell Distribution Width 13.4 % (11.5-17.5)
[2023-02-10 09:33] LABS: Hemoglobin A1C 5.5 % (4.0-6.0)
== END ==
PROVIDERS: PCP Physician Assistant; Visit Provider Nurse Practitioner Family
DX: I95.9 Hypotension, unspecified (principal); R42 Dizziness and giddiness; R55 Syncope and collapse; R73.9 Hyperglycemia, unspecified
CPT/HCPCS: 36415; 82533; 82746; 83036; 85025; 93005; 93270

== ENCOUNTER → 2023-02-24 11:00 | Outpatient (CLI) | payer BC, SELFPAY | PROVIDERS: PCP Physician Assistant; Visit Provider Nurse Practitioner Family | DX: R42 Dizziness and giddiness (principal); I95.9 Hypotension, unspecified | CPT/HCPCS: 93306 ==

== ENCOUNTER → 2023-08-22 08:20 | Outpatient (POV) | payer BC, SELFPAY | PROVIDERS: Visit Provider Dermatology | DX: Z00.00 Encounter for general adult medical examination without abnormal findings (principal) ==

== ENCOUNTER 2024-01-26 13:05 | Emergency (ER) | payer BC, SELFPAY ==
[2024-01-26 13:13] VITALS: BP 110/77; PULSE 77; RESP 16; O2SAT 100; BMI 23.5
--- NOTE | 2024-01-26 13:37 | XR_ITS ---
FINAL REPORT CLINICAL HISTORY: fall injury COMPARISON: None FINDINGS: AP, oblique, and lateral views of the left wrist were obtained. There is no prior exam for comparison. There is a comminuted impacted fracture of the distal left radius, with mild dorsal angulation. There is also a nondisplaced fracture of the ulnar styloid process. The joint spaces are preserved. The soft tissues are normal. IMPRESSION: Comminuted impacted fracture of the distal left radius with mild dorsal angulation. Nondisplaced fracture of the ulnar styloid process. Reviewed, Interpreted and Dictated by Norm Norton III, MD Transcribed by Miriam Hassan Authenticated and [facility]
--- NOTE | 2024-01-26 13:37 | XR_ITS ---
FINAL REPORT CLINICAL HISTORY: fall injury COMPARISON: None FINDINGS: AP, oblique, and lateral views of the right wrist were obtained. There is no prior exam for comparison. There is no acute fracture or dislocation. Mild degenerative change is present. Small calcifications are present on the volar aspect of the wrist. IMPRESSION: No acute osseous abnormality of the right wrist. Reviewed, Interpreted and Dictated by Norm Norton III, MD Transcribed by Miriam Hassan Authenticated and [facility]
--- NOTE | 2024-01-26 13:37 | PC.NURSE ---
DR PALENCIA AT BEDSIDE
--- NOTE | 2024-01-26 13:52 | PC.NURSE ---
DR PALENCIA AT BEDSIDE
[2024-01-26] MEDS: HYDROCODONE/APAP 5/325 MG TABLET 1 TAB PO (13:55)
--- NOTE | 2024-01-26 14:00 | ED_ITS ---
Discharge Plan Disposition Patient Disposition: Home, Self-Care Prescriptions Prescriptions: New hydrocodone-acetaminophen 5-325 mg tablet 1 tab PO Q6H PRN (Reason: pain) 3 Days Qty: 12 0RF No Action cyanocobalamin (vitamin B-12) 1,000 mcg capsule 1,000 mcg PO DAILY omeprazole 10 mg capsule,delayed release(DR/EC) 10 mg PO DAILY atorvastatin 10 mg tablet 10 mg PO HS Patient Comments: TAKE 1 TABLET BY MOUTH ONCE DAILY citalopram 20 mg tablet 20 mg PO DAILY methocarbamol 500 mg tablet 500 mg PO PRN Ajovy Syringe 225 mg/1.5 mL syringe 225 mg SQ QMONTH Qty: 1.5 5RF Ubrelvy 100 mg tablet 100 mg PO ONCE PRN (Reason: chronic migraine) Qty: 10 5RF Rx Instructions: Take 1 tablet at onset of headache/prodromal symptoms and repeat after 2 hours if symptoms persist. Max dose 2 tablets in 24 hours buspirone 10 mg tablet 10 mg PO BID aspirin [Adult Low Dose Aspirin] 81 mg tablet,delayed release (DR/EC) 81 mg PO DAILY cholecalciferol (vitamin D3) 400 unit capsule 400 unit PO DAILY multivitamin capsule 1 cap PO DAILY biotin 1 mg capsule 1 mg PO DAILY Domperidone [Domperidone 10mg Tab] 10 MG tablet 10 mg PO 2XD Referrals Follow up/Referrals: Donna Rosado PA [Primary Care Provider] - See instructions Ignacio Cagle DO [Staff Physician] - See instructions Activity Restrictions/Add. Instructions Additional Instructions/Restrictions: You have a left distal radius fracture and ulnar styloid fracture. 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 The right wrist x-ray was normal on my interpretation and radiology interpretation. Please follow-up with Dr. Cagle and consider downstream MRI or CT scan if it is not improving within 1 week. Additionally follow-up with Dr. Cagle regarding your wrist fracture. Return with any significant worsening symptoms. Clinical Impressions Clinical Impression: Distal radius fracture, left, Median neuropathy, Fracture of ulnar styloid, Right wrist sprain Discharge ED Provider: Kj Rodriguez General Adult [facility] General Chief complaint: Extremity Injury, Upper Stated complaint: AO 0824 @ 12:30, fell and inj both wrists Time Seen by Provider: 01/26/24 13:32 Mode of Arrival: Ambulatory Source of Information: Patient and Spouse Limitations: No Limitations Description of Symptoms (Recalled from ER Triage Doc. by RN): pt was outside walking and slipped on wet ground. pt states she tried to catch her self. She c/o bilateral sharp wrist pain. pt states her L wrist is the worst 10/10, the R is 5/10. History of Present Illness HPI narrative: Patient is a 53-year-old female presenting today with bilateral wrist injury after falling directly onto outstretched arms with her arms behind her onto both wrist. Significant pain and soft tissue swelling on the left wrist also has pain in the right wrist but primarily the left. Does have some paresthesias on the left thumb. Related Data Home Medications Medication Instructions Recorded Confirmed aspirin 81 mg tablet,delayed 81 mg PO DAILY heart healthy 10/18/18 12/18/23 release (Adult Low Dose Aspirin) biotin 1 mg capsule 1 mg PO DAILY Supplement 10/18/18 12/18/23 buspirone 10 mg tablet 10 mg PO BID . 10/18/18 12/18/23 cholecalciferol (vitamin D3) 10 400 unit PO DAILY Supplement 10/18/18 12/18/23 mcg (400 unit) capsule multivitamin 1 cap PO DAILY daily 10/18/18 12/18/23 cyanocobalamin (vitamin B-12) 1,000 mcg PO DAILY 11/25/21 12/18/23 1,000 mcg capsule omeprazole 10 mg capsule,delayed 10 mg PO DAILY 11/25/21 12/18/23 release Domperidone [Domperidone 10mg Tab] 10 mg PO 2XD . 02/08/23 12/18/23 atorvastatin 10 mg tablet 10 mg PO HS 02/08/23 12/18/23 citalopram 20 mg tablet 20 mg PO DAILY 02/08/23 12/18/23 methocarbamol 500 mg tablet 500 mg PO PRN 02/08/23 12/18/23 Previous Rx's Medication Instructions Recorded fremanezumab-vfrm 225 mg/1.5 mL 225 mg (1.5 mL) SQ QMONTH 12/18/23 subcutaneous syringe (Augustinovy migraines #1.5 mL Syringe) ubrogepant 100 mg tablet (Ubrelvy) 100 mg PO ONCE PRN chronic 12/18/23 migraine #10 tabs hydrocodone 5 mg-acetaminophen 325 1 tab PO Q6H PRN pain 3 days #12 01/26/24 mg tablet tabs Allergies Allergy/AdvReac Type Severity Reaction Status Date / Time No Known Allergies Allergy Verified 12[facility]18[facility]23 12:53 [facility] Disclaimer: The information contained in this section may have been updated after the patient was seen, as this information can be updated by other users. Medical History (Updated 01/26/24 @ 15:03 by Kj Rodriguez MD) Migraine headache Dyspnea PFO (patent foramen ovale) Syncope Surgical History (Updated 12/18/23 @ 12:58 by Laurie Shaw) History of esophagogastroduodenoscopy (EGD) History of colonoscopy H/O arthroscopy of right knee History of bilateral carpal tunnel release History of hysterectomy Family History (Updated 12/18/23 @ 12:59 by Laurie Shaw) Other AMD (age related macular degeneration) Coronary artery disease Diabetes Heart attack Hyperlipidemia Hypertension Kidney disease Stroke Social History Smoking Status: Never smoker second hand exposure: Yes alcohol intake: current substance use type: denies use current occupational status: student Travel in the last 8 weeks: None household members: spouse housing: house marital status: caffeine: Yes ROS Obtained: Yes All systems reviewed & no additional complaints except as documented Physical Exam General General appearance: alert Respiratory Respiratory exam: Present normal lung sounds bilaterally Cardiovascular Cardiovascular exam: Present regular rate Extremities Exam Extremities exam: Present other (Patient has soft tissue swelling on the left distal radius with median distribution paresthesias and decreased sensation otherwise is vascular gerson right distal radius there is some tenderness but no significant soft tissue swelling neurovascular normal) Neurological Exam Neurological exam: Present alert and oriented X3 Medical Decision Making Jerry Inquiry Pt receiving controlled substance: No Vital Signs: 01/26/24 13:13 Pulse Rate [Left] 77 Respiratory Rate 16 Blood Pressure [Right Arm] 110/77 Blood Pressure Mean [Right Arm] 88 Blood Pressure Source [Right Arm] Automatic Cuff Blood Pressure Position [Right Arm] Sitting 02 Sat by Pulse Oximetry 100 Orders (Tests/Meds): ED MEDICATIONS Discontinued Medications Generic Name Dose Route Start Last Admin Trade Name Freq PRN Reason Stop Dose Admin Hydrocodone Bitart/Acetaminophen 1 tab 01/26/24 13:37 01/26/24 13:55 Hydrocodone/Apap 5/325 Mg Tablet PO 01/26/24 13:38 1 tab ONCE ONE Administration ORDERS Category Date Time Status Wrist XR left minimum 3 views [XR wrist LT min 3V] Stat Exams 01/26/24 13:37 Completed Wrist XR left minimum 3 views [XR wrist LT min 3V] Stat Exams 01/26/24 14:44 Taken Wrist XR right minimum 3 views [XR wrist RT min 3V] Exams 01/26/24 13:37 Completed Stat Medical Decision Narrative: Patient with above history concerning for bilateral wrist injury soft tissue injury fracture versus dislocation versus sprain. X-rays were performed which I personally interpreted which show minimally displaced left distal radius fracture not intra-articular. In particular the patient has a median neuropathy associated with this likely compressive from the bone fragment. Will place her in finger traps and reduce this and place a splint. I do not appreciate a fracture or dislocation on the right awaiting radiology reads at the moment while on splinting the left. Reassessment 305 patient feeling much better after reduction and decompression of the median nerve her neurologic exam is completely normal at this point has normal sensation and motor function of that hand out. On reassessment send postreduction x-ray there is still slight impaction and dorsal angulation but acceptable. She was placed in ulnar gutter splint will follow-up with [facility] surgery. The right wrist x-ray was read as normal both by my own personal interpretation as well as by radiology. She was however placed in a Velcro splint for comfort as she still has some discomfort. She is aware that there could be an occult fracture associated with that and to follow-up with Dr. Cagle for further evaluation of the right wrist as well. She was discharged in stable and improved condition. Procedures Orthopedic Joint Reduction Joint #1: Time Out Performed: Yes Joint Reduction Location: wrist Analgesia: none Shoulder Technique Used (if applicable): traction/counter-traction Post Reduction X-Ray Obtained: Yes Post Reduction X-Ray Results: reduced Splint Applied: Yes Patient Tolerated Procedure: well Orthopedic Splinting/Casting Injury #1: Side: left Upper Extremity Injury Location: wrist Upper Extremity Immobilizer: sugar tong splint Post Cast/Splinting Neuro Status: intact Post Cast/Splinting Vasc Status: intact Critical Care Critical Care Time Critical Care Time: No
--- NOTE | 2024-01-26 14:09 | PC.NURSE ---
ASSISTED DR PALENCIA WITH TRACTION
--- NOTE | 2024-01-26 14:44 | XR_ITS ---
FINAL REPORT CLINICAL HISTORY: post reduction COMPARISON: Prior exam of 01/26/2024 FINDINGS: AP, oblique, and lateral views of the left wrist were obtained. A cast has been applied to the left wrist and forearm since the prior exam. Again noted is the comminuted impacted fracture of the distal radius. The bony alignment appears stable. The joint spaces are preserved. IMPRESSION: Comminuted impacted fracture of the distal radius again noted, a cast has been applied. The bony alignment remains stable. The nondisplaced ulnar styloid fracture remains stable as well. Reviewed, Interpreted and Dictated by Norm Norton III, MD Transcribed by Miriam Hassan Authenticated and [facility]
--- NOTE | 2024-01-26 14:58 | PC.NURSE ---
Rounded on pt to see if they needed anything. pt had no needs at this time
[2024-01-26 15:26] VITALS: BP 112/70; PULSE 78; RESP 17; TEMP 36.7; O2SAT 98
--- NOTE | 2024-02-05 23:02 | PC.NURSE ---
Chart accessed for ortho paperwork
== END 2024-01-26 15:29 | disposition home or self-care (01) ==
PROVIDERS: Emergency Provider Student in an Organized Health Care Education/Training Program; PCP Physician Assistant
DX: S52.352A Displaced comminuted fracture of shaft of radius, left arm, initial encounter for closed fracture (principal); S52.615A Nondisplaced fracture of left ulna styloid process, initial encounter for closed fracture; G56.12 Other lesions of median nerve, left upper limb; S63.501A Unspecified sprain of right wrist, initial encounter; W19.XXXA Unspecified fall, initial encounter
CPT/HCPCS: 29125; 73110; 99284

== ENCOUNTER 2024-02-12 11:54 | Day surgery (SDC) | payer BC, SELFPAY ==
[2024-02-09 13:46] VITALS: BMI 24.0
[2024-02-12] VITALS (9 sets, daily range): BP systolic 118–124; BP diastolic 69–77; PULSE 67–87; RESP 11–18; TEMP 36.3–43; O2SAT 93–96
[2024-02-12] MEDS: LACTATED RINGERS 1000ML 1,000 ML 100 ML IV (12:15)
--- NOTE | 2024-02-12 13:10 | P.PNANES_ITS ---
[facility] Disclaimer: The information contained in this section may have been updated after the patient was seen, as this information can be updated by other users. Medical History Migraine headache Dyspnea PFO (patent foramen ovale) Syncope Surgical History History of esophagogastroduodenoscopy (EGD) History of colonoscopy H/O arthroscopy of right knee History of bilateral carpal tunnel release History of hysterectomy Family History Other AMD (age related macular degeneration) Coronary artery disease Diabetes Heart attack Hyperlipidemia Hypertension Kidney disease Stroke Social History Smoking Status: Never smoker second hand exposure: Yes alcohol intake: never substance use type: denies use current occupational status: employed and student Travel in the last 8 weeks: None household members: spouse housing: house marital status: caffeine: Yes [facility] Anesthesia Checklist Patient Identification Patient Identification: Arm Band Structural Data Admitted From: Home Planned Operative Procedure/s: ORIF Left Wrist Consent for Planned Operative Procedure(s) Verified: Yes Verified Documents: Surgical Consent and History and Physical NPO Status Verified Time NPO: 00:00 Additional verifications Anesthesia Reactions: Yes (nausea) Hx Blood Transfusions: No Blood Transfusion Reaction: No Airway Assessment Mallampati Score:: Class II C-Spine Mobility Assessed: Yes TMJ Mobility Assessed: Yes Dentition: Good Dentition Neurological Assessment Level of Consciousness: Awake and Alert Anesthesia Plan Anesthesia Risk discussed: Yes Anesthesia Plan: Verified ASA Class: II Anesthesia Type: General w/block (Left Supraclavicular Nerve Block. Risks/benefits explained. Pt verbalized understanding)
--- NOTE | 2024-02-12 14:25 | XR_ITS ---
FINAL REPORT CLINICAL HISTORY: ORIF left wrist 30 secs fluoro 0.75 mGy COMPARISON: None FINDINGS: FLUOROSCOPY LESS THAN 1 HOUR HISTORY: Fluoroscopy guided ORIF left wrist FINDINGS: Fluoroscopy time was provided for ORIF left wrist. Two spot films were obtained. 30 seconds of fluoro time were used, at a dosage of 0.75 mGy. IMPRESSION: as above. Reviewed, Interpreted and Dictated by Hardeep Price MD Transcribed by Miriam Hassan Authenticated and . [facility]
[2024-02-12] MEDS: LIDOCAINE 1% W/EPI 1:100,000 20ML VIAL 20 ML IJ (14:27)
--- NOTE | 2024-02-12 14:39 | EXP.OP.NOTE ---
Date of procedure: 02/12/24 Pre-op Diagnosis:: Left distal radius fracture intra-articular Post-op Diagnosis:: Same Procedure performed:: Open reduction internal fixation intra-articular distal radius fracture 3+ part Surgeon:: Ignacio Cagle DO HOME HEALTH CARE SOCIAL WORKER:: Ken Jackson Anesthesia: GETA and regional Estimated blood loss (mL): 0 Operative findings:: Intra-articular distal radius fracture Operative note:: Patient is identified preoperatively. Left wrist marked with yes my initials. Underwent a block with anesthesia. Then taken the operating room and placed upon the operating bed. General anesthesia ministered airway secured. Left upper extremity prepped draped normal sterile fashion. Once prepped and draped final operative timeout performed to identify proper patient procedure and extremity. Everyone involved the case agreed. No counter- indication to beginning. Did receive preoperative antibiotics. Marking pen was used to boyd bony landmarks of the wrist and planned incision. Esmarch was used to exsanguinate the extremity pneumatic tourniquet inflated to 250 mmHg. Skin knife was used incise through skin. Dissection was taken down over the FCR tendon which was retracted radially throughout the procedure. Floor of the FCR was opened. Dissection was taken down to the pronator quadratus which was split in L-type fashion off the distal radius and clearing the fracture site. The fracture was intra-articular and radiocarpal joint and split in a diagonal fashion on the volar aspect of the distal radius. There is a large volar fragment present. Attention was brought to cleaning the fracture site and preliminary reduction of the fracture and mobilization of the distal fragment. This was done with care to maintain the small sliver on the distal fragment. Was able to mobilize the fracture and pulmonary reduced it back to 1 to 2 degrees of volar tilt and proper radial length and inclination. Standard plate was selected from the [employer] volar distal radius set and placed on the radius a cortical screw was then placed followed by the distal locking screws x-rays were utilized to find proper alignment and length of the screws 2 additional locking screws were placed in the shaft irrigation of the wound was performed Deep layers closed with Vicryl stitch skin closed with nylon stitch sterile dressing placed with a well-padded volar splint. Patient waken anesthesia taken recovery in stable condition. Condition: stable Disposition: PACU Complications:: None apparent
--- NOTE | 2024-02-12 14:54 | EXP.ANES.I ---
[facility] Anesthesia Record Part I Anesthesia Record I Intake, IV Amount: 800 Hydration: Adequate Estimated blood loss (mL): 5 Urine output (mL): 0 Blood Products used (#): none Blood Pressure: 121/74 SaO2: 96 Pulse Rate: 79 Airway Patency: Patent Respiratory Rate: 16 Temperature: 98.1 F Patient is:: Drowsy and Stable Stable to PACU at:: 14:50
[2024-02-12] MEDS: KETOROLAC 30MG/ML VIAL 30 MG IV (15:09)
[2024-02-12] MEDS: ONDANSETRON 4MG/2ML VIAL 4 MG IV (15:09)
--- NOTE | 2024-02-12 16:40 | P.OP_ITS ---
Date of procedure: 02/12/24 Pre-op Diagnosis:: Right bimalleolar ankle fracture Post-op Diagnosis:: Same Procedure performed:: Open reduction internal fixation right bimalleolar ankle fracture with syndesmotic repair Surgeon:: Ignacio Cagle DO STRETCH PRESS OPERATOR:: Ken Jackson Anesthesia: GETA and regional Estimated blood loss (mL): 0 Operative findings:: High lateral malleolus fracture with syndesmotic widening increase medial joint space widening Implants Arthrex one third tubular plate 3.5 mm cortical screws and tight rope mechanism Operative note:: Patient was identified preoperatively right ankle marked with yes my initials. Underwent a block with anesthesia. Taken the operating room placed upon the operating bed general anesthesia administered. Airway secured. Right lower extremity then prepped and draped normal sterile fashion. Once prepped and draped final operative timeout performed to identify proper patient procedure and extremity. Everyone involved in the case agreed. There were no counter indications to beginning. Did receive preoperative antibiotics. X-ray was brought into identify the extent of the fibula fracture proximally. This was marked on the skin Esmarch was used to exsanguinate the extremity and pneumatic tourniquet was inflated to 300 mmHg. Skin knife was used incise through skin careful dissection taken down to identify the fracture site. Fracture site was then cleaned of soft tissue edges of the fracture were cleaned and a [id number] and lobster claw clamp were utilized for pulmonary reduction of the fracture. This is an oblique fibula fracture above the level of the joint. A lag screw was placed anterior to posterior for fixation of the fracture. One third tubular plate was selected. Cortical screws were placed above and below the lag screw and fracture site. Distalmost screw 4 oh cancellous screw was placed. Additional lag screws proximally. X-rays brought into identify proper reduction of the fracture and reduction of the syndesmosis. Using the third hole from the bottom of the plate K wire was then placed through 4 cortex of the fibula and tibia as a guidewire for the tight rope. X-rays were brought in to show adequate placement of the guidewire. And then the cannulated drill bit was used to open fibula through the medial tibia. Tight rope was then placed to the medial aspect of the tibia the button was then flipped mechanism was tightened and under direct visualization the syndesmosis was reduced and tightened by pulling tension on the tight rope mechanism. X-rays were taken AP and lateral views show good reduction. The tight rope limbs were then cut outside the button irrigation wound performed. Deep layers closed with 0 Vicryl suture subcutaneous 2-0 Vicryl suture 3-0 nylon the skin for closure. Sterile dressing placed. Posterior and sterile splint placed. Patient taken recovery stable condition Condition: stable Disposition: PACU Complications:: None apparent
--- NOTE | 2024-02-13 07:31 | EXP.ANES.II ---
[facility] Anesthesia Record Part II Anesthesia Record Part II Discharge Time: 15:20 Destination: Surgical Day Care (OP Surgery) PACU nurse assessment reviewed?: Yes Patient Condition:: Good Anesthesia Complications:: None Swallowing reflex intact?: Yes Airway Patency: Patent Cyanosis?: No Blood Pressure: 121/74 SaO2: 95 Respiratory Rate: 11 Pulse Rate: 75 Temperature: 98.1 F Mental Status: Alert & Oriented Pain level:: 0 Nausea and/or vomitting:: None Intake, IV Amount: 0 Hydration: Adequate
[2024-02-13 07:32] VITALS: BP 121/74; PULSE 75; RESP 11; TEMP 36.7; O2SAT 95
== END 2024-02-12 16:00 | disposition home or self-care (01) ==
PROVIDERS: PCP Physician Assistant; Visit Provider Orthopaedic Surgery
PROC: (CPT 25609; principal; 2024-02-12 15:00)
DX: S52.572A Other intraarticular fracture of lower end of left radius, initial encounter for closed fracture (principal); W01.0XXA Fall on same level from slipping, tripping and stumbling without subsequent striking against object, initial encounter
CPT/HCPCS: 25609; 73100; 76000; 96374; C1713; C1776; J2405

== ENCOUNTER 2024-02-29 13:38 | Outpatient (CLI) | payer BC, SELFPAY ==
--- NOTE | 2024-02-29 13:44 | XR_ITS ---
FINAL REPORT CLINICAL HISTORY: Lt Wrist Pain COMPARISON: 01/26/2024 FINDINGS: LEFT WRIST Three views demonstrate there have been interval postoperative changes from ORIF of the distal radius fracture with screw plate and multiple screws. Again noted is a fracture of the ulnar styloid process. There is no acute fracture or dislocation. There are mild and moderate degenerative changes. The visualized joint spaces are normally aligned. The soft tissues are unremarkable. IMPRESSION: Interval postoperative changes of the distal radius. Other findings are stable. Reviewed, Interpreted and Dictated by Norm Norton III, MD Transcribed by Kelle Wynne Authenticated and [facility]
== END 2024-02-29 23:59 ==
LOC: RAD 13:40
PROVIDERS: PCP Physician Assistant; Visit Provider Orthopaedic Surgery
DX: M25.532 Pain in left wrist (principal); S52.502A Unspecified fracture of the lower end of left radius, initial encounter for closed fracture
CPT/HCPCS: 73110

== ENCOUNTER 2024-03-19 13:09 | Outpatient (CLI) | payer BC, SELFPAY ==
--- NOTE | 2024-03-19 13:14 | XR_ITS ---
FINAL REPORT CLINICAL HISTORY: lt wrist pain,,f/u fx COMPARISON: 02/29/2024 FINDINGS: LEFT WRIST Three views show postoperative ORIF changes of the distal radial fracture. Fracture lines are obscured by hardware. There is mild impaction deformity which is stable. The ulnar styloid process is stable. The joint spaces appear normal. IMPRESSION: No significant change. Reviewed, Interpreted and Dictated by Sergio Keene MD Transcribed by Kelle Wynne Authenticated and [facility] [place]
== END 2024-03-19 23:59 | disposition home or self-care (01) ==
LOC: RAD 13:10
PROVIDERS: PCP Physician Assistant; Visit Provider Physician Assistant Surgical
DX: M25.532 Pain in left wrist (principal); S52.502A Unspecified fracture of the lower end of left radius, initial encounter for closed fracture
CPT/HCPCS: 73110

== ENCOUNTER 2024-04-17 18:40 | Outpatient (CLI) | payer BC, SELFPAY ==
--- NOTE | 2024-04-17 18:44 | XR_ITS ---
PROCEDURE INFORMATION: Exam: XR Left Wrist Exam date and time: 04/17/2024 6:45 PM Age: 53 years old Clinical indication: Pain; Wrist; Left; Additional info: Left distal radius TECHNIQUE: Imaging protocol: Radiologic exam of the left wrist. Views: 3 or more views. COMPARISON: CR XR WRIST LT MIN 3V 03/19/2024 1:15 PM FINDINGS: Bones/joints: Distal radius plate and screw fixation. Intact surgical hardware. Unchanged postsurgical alignment. Stable callus formation lateral aspect of the distal radius fracture. Unchanged alignment of healing changes of an ulnar styloid fracture. No acute fracture. Soft tissues: Normal. IMPRESSION: Stable postsurgical and posttraumatic changes of the left wrist. No acute osseous findings.
== END 2024-04-17 23:59 | disposition home or self-care (01) ==
LOC: RAD 18:42
PROVIDERS: PCP Physician Assistant; Visit Provider Physician Assistant
DX: M25.532 Pain in left wrist (principal); S52.502A Unspecified fracture of the lower end of left radius, initial encounter for closed fracture
CPT/HCPCS: 73110

== ENCOUNTER 2024-05-08 08:00 | Outpatient (RCR) | payer BC, SELFPAY | END 2024-05-08 09:00 | disposition home or self-care (01) | LOC: OT 08:00 | PROVIDERS: Visit Provider Physician Assistant Surgical | DX: M25.532 Pain in left wrist (principal); S52.122A Displaced fracture of head of left radius, initial encounter for closed fracture | CPT/HCPCS: 97010; 97014; 97018; 97035; 97110; 97140; 97164; 97165; 97530; G0283 ==

== ENCOUNTER 2024-05-15 08:33 | Outpatient (CLI) | payer BC, SELFPAY ==
--- NOTE | 2024-05-15 08:36 | XR_ITS ---
FINAL REPORT CLINICAL HISTORY: lt wrist fx COMPARISON: 04/17/2024 FINDINGS: Three views show post ORIF changes of the distal radius. There is mild deformity with healed fracture of an old ulnar styloid process fracture. Mild degenerative changes are present. IMPRESSION: Postsurgical changes as above. Reviewed, Interpreted and Dictated by Sergio Keene MD Transcribed by Kaleigh Rivera Authenticated and [facility]
== END 2024-05-15 23:59 | disposition home or self-care (01) ==
LOC: RAD 08:34
PROVIDERS: PCP Physician Assistant; Visit Provider Physician Assistant
DX: M25.532 Pain in left wrist (principal); S52.512A Displaced fracture of left radial styloid process, initial encounter for closed fracture
CPT/HCPCS: 73110

== ENCOUNTER 2024-05-20 09:28 | Outpatient (CLI) | payer BC, SELFPAY ==
--- NOTE | 2024-05-20 09:32 | MM_ITS ---
PROCEDURE INFORMATION: Exam: MG Bilateral Screening 3D Mammography Exam date and time: 05/20/2024 9:33 AM Age: 53 years old Clinical indication: Screening. No family history of breast cancer. TECHNIQUE: Imaging protocol: Bilateral Screening tomosynthesis and 2D mammography including computer-aided detection (CAD) when performed. COMPARISON: 1. MG MM DIG SCREENING MAMM BI W/CAD 02/07/2023 7:53 AM 2. MG MM DIG SCREENING MAMM BI W/CAD 11/08/2021 8:02 AM 3. MG MM DIG SCREENING MAMM BI W/CAD 09/24/2020 8:08 AM 4. MG MM DIG SCREENING MAMM BI W/CAD 09/19/2019 5:57 PM FINDINGS: MAMMOGRAPHY: Breast composition: The breasts are heterogeneously dense, which may obscure small masses. Mass: None. Architectural distortion: None. Calcifications: No suspicious calcifications. Asymmetric density: None. Skin thickening: None. Axillary adenopathy: None. IMPRESSION: No mammographic evidence of malignancy. Annual screening is recommended unless otherwise clinically indicated. ASSESSMENT: BI-RADS Category 1: Negative
--- NOTE | 2024-05-20 09:32 | XR_ITS ---
FINAL REPORT TECHNIQUE: Bone mineral density was calculated of the lumbar spine and hip. CLINICAL HISTORY: OSTEOPOROSIS COMPARISON: None FINDINGS: Using L1-4, the bone mineral density of the spine is 0.910 g/cm2, corresponding to T-score of -1.2. Using the left hip, the bone mineral density of the femoral neck is 0.783 g/cm2, corresponding to a T-score of -1.3. Using the right hip, the bone mineral density of the femoral neck is 0.742 g/cm?, corresponding to a T-score of -1.0. NOTE: T-score: Standard deviation compared with peak bone mass of young adult mean. *Following the recommendations of the International Society of Bone densitometry, classification of hip BMD is based on the lower of two T-scores; total hip or femoral neck. IMPRESSION: Diminished bone mineral density of the lumbar spine and left hip consistent with osteopenia. Normal bone mineral density of the right hip. Reviewed, Interpreted and Dictated by Norm Norton III, MD Transcribed by Miriam Hassan Authenticated and [facility]
== END 2024-05-20 23:59 | disposition home or self-care (01) ==
LOC: RAD 09:28
PROVIDERS: PCP Physician Assistant; Visit Provider Physician Assistant
DX: Z12.31 Encounter for screening mammogram for malignant neoplasm of breast (principal); M85.89 Other specified disorders of bone density and structure, multiple sites; Z13.820 Encounter for screening for osteoporosis
CPT/HCPCS: 77063; 77067; 77080

== ENCOUNTER 2024-07-24 11:07 | Outpatient (CLI) | payer BC, SELFPAY ==
--- NOTE | 2024-07-24 11:13 | XR_ITS ---
FINAL REPORT CLINICAL HISTORY: PAINT LT JOINT/KNEE COMPARISON: None FINDINGS: Three views of the left knee reveal no evidence of fracture or dislocation. The bony alignment is normal. Mild degenerative change is present. There is no evidence of joint effusion. No localized soft tissue abnormality is seen. IMPRESSION: No acute abnormality identified. Reviewed, Interpreted and Dictated by Norm Norton III, MD Transcribed by Miriam Hassan Authenticated and [facility]
== END 2024-07-24 23:59 | disposition home or self-care (01) ==
LOC: RAD 11:08
PROVIDERS: PCP Physician Assistant; Visit Provider Physician Assistant
DX: M25.562 Pain in left knee (principal)
CPT/HCPCS: 73562

== ENCOUNTER 2024-12-08 14:03 | Emergency (ER) | payer BC, SELFPAY ==
[2024-12-08 14:30] VITALS: BP 129/72; PULSE 86; RESP 19; TEMP 36.9; O2SAT 98; BMI 24.6
[2024-12-08 14:40] LABS: Apearance,Urine Clear (Clear); Color,Urine Yellow (Yellow)
[2024-12-08 14:41] LABS: Bilirubin,Urine Negative (Negative); Blood, Urine Trace (Negative); Glucose,Urine (UA) Negative (Negative); Ketones,Urine Negative (Negative); Protein,Urine Negative (Negative); UTC Leukocyte Esterase,Urine Trace (Negative); UTC Nitrate,Urine Negative (Negative); Urobilinogen,Urine 0.2 EU/dl (0.2)
--- NOTE | 2024-12-08 15:02 | EXP.UTC ---
Discharge Plan Disposition Patient Disposition: Home, Self-Care Condition: Good Prescriptions Prescriptions: New ciprofloxacin HCl [Cipro] 250 mg tablet 250 mg PO Q12H 3 Days Qty: 6 0RF No Action atorvastatin 10 mg tablet 10 mg PO DAILY omeprazole 40 mg capsule,delayed release(DR/EC) 40 mg PO AM Patient Comments: TAKE 1 CAPSULE BY MOUTH IN THE MORNING buspirone 10 mg tablet 10 mg PO BID Patient Comments: TAKE 1 TABLET BY MOUTH TWICE DAILY escitalopram oxalate 20 mg tablet 20 mg PO DAILY Patient Comments: TAKE 1 TABLET BY MOUTH ONCE DAILY Ajovy Syringe 225 mg/1.5 mL syringe 225 mg SQ MONTHLY Patient Comments: INJECT 1 SYRINGE ONCE EVERY MONTH FOR MIGRAINES Referrals Follow up/Referrals: Donna Rosado PA [Primary Care Provider] - See instructions Activity Restrictions/Add. Instructions Additional Instructions/Restrictions: Take medication as prescribed. Increase fluids. If symptoms persist or worsen, return to clinic/PCP. Clinical Impressions Clinical Impression: UTI (urinary tract infection) Qualifiers: Urinary tract infection type: acute cystitis Hematuria presence: with hematuria Qualified Code(s): N30.01 - Acute cystitis with hematuria Instructions Patient Instructions: DI for Urinary Tract Infection (UTI) Print Language Print Language: Montenegrin Discharge ED Provider: Noris Guerrero [facility] General Stated complaint: possible uti Mode of Arrival: Ambulatory Source of Information: Patient Limitations: No Limitations Time Seen by Provider: 12/08/24 14:43 Description of Symptoms (Recalled from Triage Doc. by RN): PATIENT C/O BLADDER PAIN AND OCCASIONAL PINK-TINGED URINE HEENT Symptoms (Recalled from RN notes): No Resp Symptoms (Recalled from RN notes): No Skin Symptoms (Recalled from RN notes): No MS Symptoms (Recalled from RN notes): No Functional Status (Recalled from RN notes): WNL History of Present Illness Provider Complaint: Pt reports that she has had some bladder pain with occasional pink tinged urine. Related Data Home Medications ?Medication ?Instructions ?Recorded ?Confirmed atorvastatin 10 mg tablet 10 mg PO DAILY 12/08/24 12/08/24 buspirone 10 mg tablet 10 mg PO BID 12/08/24 12/08/24 escitalopram oxalate 20 mg tablet 20 mg PO DAILY 12/08/24 12/08/24 fremanezumab-vfrm 225 mg/1.5 mL 225 mg SQ MONTHLY 12/08/24 12/08/24 subcutaneous syringe (Ajovy Syringe) omeprazole 40 mg capsule,delayed 40 mg PO AM 12/08/24 12/08/24 release Previous Rx's ?Medication ?Instructions ?Recorded ciprofloxacin HCl 250 mg tablet 250 mg PO Q12H 3 days #6 tabs 12/08/24 (Cipro) Allergies Allergy/AdvReac Type Severity Reaction Status Date / Time wheat Allergy Unknown Verified 10/02/24 09:06 Worker's Comp Is this a Worker's Comp case?: No [facility] Disclaimer: The information contained in this section may have been updated after the patient was seen, as this information can be updated by other users. Medical History Migraine headache Dyspnea PFO (patent foramen ovale) Syncope Surgical History History of esophagogastroduodenoscopy (EGD) History of colonoscopy H/O arthroscopy of right knee History of bilateral carpal tunnel release History of hysterectomy Family History Other AMD (age related macular degeneration) Coronary artery disease Diabetes Heart attack Hyperlipidemia Hypertension Kidney disease Stroke Social History Smoking Status: Never smoker second hand exposure: Yes alcohol intake: never substance use type: denies use current occupational status: employed and student Travel in the last 8 weeks: None household members: spouse housing: house marital status: caffeine: Yes Have you lived/traveled outside US in past 30 days?: No Contact w/someone who lives/traveled outside US past 30 days?: No Exposure to someone with infectious disease in past 14 days?: No Do you have a fever (greater than 100.4 F or 38 C)?: No Have you tested positive for COVID-19: No Exposed to someone with COVID-19 in past 14 days?: No Do you have a sore throat?: No Do you have a cough?: No Do you have any weakness?: No Do you have any diarrhea?: No Are you experiencing any unusual bleeding?: No Do you have any muscle aches/pain?: No Do you have any abdominal pain?: No Are you experiencing loss of taste or smell?: No ROS Obtained: Yes All systems reviewed & no additional complaints except as documented Constitutional Constitutional: Reports system reviewed and no additional complaints, except as documented Eyes Eyes: Reports system reviewed and no additional complaints, except as documented ENT Ears, Nose, Mouth, and Throat: Reports system reviewed and no additional complaints, except as documented Cardiovascular Cardiovascular: Reports system reviewed and no additional complaints, except as documented Respiratory Respiratory: Reports system reviewed and no additional complaints, except as documented Gastrointestinal Gastrointestingal: Reports system reviewed and no additional complaints, except as documented Genitourinary Female Genitourinary: Reports system reviewed and no additional complaints, except as documented, Reports hematuria and Reports pelvic pain Musculoskeletal Musculoskeletal: Reports system reviewed and no additional complaints, except as documented Integumentary/Breasts Skin/Breast: Reports system reviewed and no additional complaints, except as documented Neurologic Neurologic: Reports system reviewed and no additional complaints, except as documented Endocrine Endocrine: Reports system reviewed and no additional complaints, except as documented Hematologic/Lymphatic Henatologic/Lymphatic: Reports system reviewed and no additional complaints, except as documented Allergic/Immunologic Allergic/Immunologic: Reports system reviewed and no additional complaints, except as documented Physical Exam General General appearance: alert and in no apparent distress Head Head exam: atraumatic and normocephalic Eye Eye exam: Present normal appearance ENT ENT exam: Present normal exam Neck Neck exam: Present normal inspection Respiratory Respiratory exam: Present normal lung sounds bilaterally Cardiovascular Cardiovascular exam: Present regular rate, normal rhythm and normal heart sounds Abdominal Exam Abdominal exam: Present soft, tenderness and normal bowel sounds Abdominal tenderness: Present suprapubic Extremities Exam Extremities exam: Present normal inspection Back Exam Back exam: Present normal inspection; Absent CVA tenderness (R) or CVA tenderness (L) Neurological Exam Neurological exam: Present alert and oriented X3 Psychiatric Psychiatric exam: Present normal affect and normal mood Skin Skin exam: Present warm and dry Lymphatic Lymphatic Findings: no adenopathy Medical Decision Making Medical Records Screening: Per USPSTF and CDC recommendations, given the prevalence of disease in our region, it is our hospital?s policy to screen for HIV and viral Hepatitis for all patients aged 18 and over and those with ongoing risk factors. Jerry Inquiry Pt receiving controlled substance: No Jerry was queried for this patient: No Vital Signs: 12/08/24 14:30 Temperature 98.4 F Temperature Source Oral Pulse Rate [Left Brachial] 86 Respiratory Rate 19 Blood Pressure [Left Arm] 129/72 Blood Pressure Mean [Left Arm] 91 Blood Pressure Source [Left Arm] Automatic Cuff Blood Pressure Position [Left Arm] Sitting 02 Sat by Pulse Oximetry 98 Oxygen Delivery Method Room Air Lab Data Lab results reviewed: Yes I reviewed the patient's lab results. Lab Results 12/08/24 14:28: Urine Color Yellow, Urine Appearance Clear, Urine pH 6.0, Ur Specific Oran 1.010, Urine Protein Negative, Urine Glucose (UA) Negative, Urine Ketones Negative, Urine Blood Trace, Urine Nitrate Negative, Urine Bilirubin Negative, Urine Urobilinogen 0.2, Ur Leukocyte Esterase Trace Orders (Tests/Meds): ORDERS Category Date Time Status Urine Culture Stat Micro 12/08/24 14:20 Received
[2024-12-08 15:07] VITALS: BP 129/72; PULSE 86; RESP 19; TEMP 36.9; O2SAT 98
== END 2024-12-08 15:33 | disposition home or self-care (01) ==
PROVIDERS: Emergency Provider Nurse Practitioner Family; PCP Physician Assistant
DX: N30.01 Acute cystitis with hematuria (principal); R10.2 Pelvic and perineal pain
CPT/HCPCS: 81003; 87086; 99212; G0381

== ENCOUNTER 2025-05-14 10:35 | Outpatient (CLI) | payer BC, SELFPAY ==
--- OUTSIDE RECORDS SUMMARY | 2024-07-24 06:30 | XMS_ITS ---
Author Organization [facility] Address [facility] [address] [place] [id number] Care Team Providers Care Optical Effects Camera Operator Name Role Phone Stevie Etienne Primary Care Provider [phone] Donna Rosado Unavailable [phone] Allergies Allergen (clinical drug ingredient) Drug/Non Drug [...] Last Name Ashlee Referring Provider Speciality Physician Staff Services Manager Referred Provider Orthopedics, . Referred Provider Specialty Orthopedic S urgery General Notes Donna Rosado S 2023 10:55:36 AM > Pt needs an [...] 225 MG/1.5ML as directed subcutaneously once a month for 30 days Active Methocarbamol 500 MG 1-2 tab orally tid, prn for 30 day(s) Active Escitalopram Oxalate 20 MG 1 tablet Orally Once a day for 30 days Active Atorvastatin Calcium 10 MG Take 1 tablet by mouth once daily for 30 days Active Vitamin B-12 1000 MCG 1 HANG SUBLINGUALLY ONCE A DAY *Please review and pick correct strength-formulat ion from [employer] options. If intended option is not shown, discontinue and re-order from Quick Search* Active DOMPERIDONE 10MG 1 ORAL QID *Please review for potential replacement for e-prescription and drug interaction check* Active Ocate 3 1000 MG PO WITH MEAL Q DAY *Please revie w and pick correct strength-formulat ion from [employer] options. If intended option is not shown, discontinue and re-order from Quick Search* Active Vitamin D3 50 MCG (1999 UT) 1 tab(s) orally once a day Active Multiple Vitamin - 1 cap(s) orally once a day Active Ubrelvy 100 MG 1 tablet may take second dose at least 2 hours after first dose as needed Orally Once a day for 30 day(s) Active OMEPRAZOLE 20 MG 1 [...] 07/24/2024 Encounters Encounter Location Date Provider Diagnosis [facility] [address] [facility] [address] [place] [id number] 07/24/2024 Donna Binghamngoc Pain, joint, knee, l eft M25.562 Assessments Encounter Date Diagnosis (ICD Code) Assessment Notes Treatment Notes Treatment Clinical Notes Section Notes 07/24/2024 Pain, joint, knee, left (ICD-10 - M25.562) Plan Of Treatment Referrals Referral Date Details 07/24/2024 07/24/2024, . Orthop edics Next Appt Details Follow Up: via phone to repo rt test results, Reason: Provider Name:Donna moss, 05/14/2025 10:00:00 AM, [address], [place], [id number], Progress Notes * PAVAN CARRERADOB:1970 (54 yo F)Acc No.[id number]:07/24/2024 Progress Notes Patient: PAVAN RUIZ Provider: RODRI San :1970 A ge:54 Y S ex:Female Date:07/24/2024 Address:[address] [place] [address] Pcp:Stevie Etienne Subjective: * Chief Complaints: * [...] *Please review and pick correct strength-formulation from [employer] options. If intended option is not shown, discontinue and re-order from Quick Search*, Taking Ocate 3 1000 MG PO WITH MEAL Q DAY , Notes to Pharmacist: *Please review and pick correct strength-formulation from [employer] options. If intended option is not shown, discontinue and re-order from [employer] Search*, Taking Betamethasone Dipropionate Aug 0.05 % [...] Examination: K nee / Petit: Knee: left. Inspection: no deformity, no swelling or redness. Palpation: tender over patella, no tenderness on joint lines or collateral ligaments. Collateral ligaments: intact medially and laterally. Range of motion: pain at extremes of motion. Tung: negative. Drawer test: negative. Patellofemoral joint: crepitations with movement. ? Assessment: * Assessment: 1. P ain, joint, knee, left - M25.562 (Primary) Plan: * Treatment: ? Referral To:. Orthopedics??Orthopedic Surgery ?Reason: * Follow Up: v ia phone to report test results * Billing Information: * Visit Code: 81413 Office Visit, Est Pt., Level 3. * Procedure Codes: * Electronic signature of RODRI Peacock on 05/14/2025 at 10:58 AM EDT Sign off status: Pending * Provider: RODRI San Date: 0 07/24/2024 Generated for David gaspar/Elvis/Ashish on: 0 05/14/2025 10:58 AM EDT History and Physical Notes * HPI (History of Present Illness) Category Sub-Category Detail Notes Category Not es Knee/Petit knee pain Examination Category Sub-Category Detail Notes Category Not es Knee / Petit [facility]: negative Drawer test: negative Patellofemoral joint: crepitations [...]
--- OUTSIDE RECORDS SUMMARY | 2024-12-19 10:45 | XMS_ITS ---
Author Organization [facility] Address [facility] [address] [place] [id number] Care Team Providers Care Pack Master Name Role Phone Stevie Etienne Primary Care Provider [phone] Donna Rosado Unavailable [phone] Allergies Allergen (clinical drug ingredient) Drug/Non Drug [...] orally tid, prn for 30 day(s) Active Ajovy 225 MG/1.5ML as directed subcutaneously once a month for 30 days Active Escitalopram Oxalate 20 MG 1 tablet Orally Once a day for 90 days Active Atorvastatin Calcium 10 MG Take 1 tablet by mouth once daily for 90 Active Betamethasone Dipropionate Jun 0.05 % 1 lidia applied topically 2 [...] review and pick correct strength-formulat ion from [employer] options. If intended option is not shown, discontinue and re-order from Quick Search* Active [place] 3 1000 MG PO WITH MEAL Q DAY *Please revie w and pick correct strength-formulat ion from [employer] options. If intended option is not shown, [...] 12/19/2024 Encounters Encounter Location Date Provider Diagnosis [facility] [facility] [address], [place] [id number] 12/19/2024 Donna Rosado Acute URI J06.9 Assessments [...] Next Appt Details Follow Up: prn, Reason: Provider Name:Donna moss, 05/14/2025 10:00:00 AM, [address], [place], [place], [id number], Progress Notes * PAVAN CARRERADOB:1970 (54 yo F)Acc No.[id number]:12/19/2024 Progress Notes Patient: PAVAN RUIZ Provider: RODRI San :1970 A ge:54 Y S ex:Female Date:12/19/2024 Address:[address] [place], [place] [id number] Pcp:Stevie Etienne Subjective: * Chief Complaints: * [...] *Please review and pick correct strength-formulation from [employer] options. If intended option is not shown, discontinue and re-order from Quick Search*, Taking Gibson 3 1000 MG PO WITH MEAL Q DAY , Notes to Pharmacist: *Please review and pick correct strength-formulation from [employer] options. If intended option is not shown, [...] Examination: E NT/Respiratory: General Appearance: N AD. Ears: a uditory canals normal bilaterally, TM's WNL. Nose : turbinates red, congested. Sinuses : t stew maxillary sinuses bilaterally. Oral cavity : no erythema or exudate seen on pharynx, PND present. Neck : n o cervical lymphadenopathy. Heart : R RR, normal S1 S2, no murmurs. Lungs: c lear to auscultation bilaterally. Assessment: * Assessment: 1. Maria Del Carmen yarbrough URI - J06.9 (Primary) Plan: * [...] * Procedure Codes: 9 4760 [place], [address] CAPILLARY BLOOD DRAW, 76511 CBC WITH AUTO DIFF, 94164 Flu Test- Nasal Swab, Modifiers: QW , 05338 COVID TEST IN HOUSE, Modifiers: QW * Follow Up: p rn * Billing Information: * Visit Code: 86058 Office Visit, Est Pt., Level 3. * Procedure Codes: [address] [place]. [address] CAPILLARY BLOOD DRAW. 04051 CBC WITH AUTO DIFF. 93004 Flu Test- Nasal Swab. Modifiers: QW 93253 COVID TEST IN HOUSE. Modifiers: QW * Electronic signature of Karine ta Crowdy , PA on 05/14/2025 at 10:58 AM EDT Sign off status: Pending * Provider: RODRI San Date: 0 12/19/2024 Generated for David gaspar/Elvis/eTransmitting on: 0 05/14/2025 10:58 AM EDT History [...]
--- OUTSIDE RECORDS SUMMARY | 2025-05-14 10:58 | XMS_ITS | Data Portability ---
Author Organization [facility] ADELE RosadoS WALDORF CLOSED Address [address] [place] [address] Care Team Providers Care Fuel Distribution System Operator Name Role Phone GÓMEZ DOZIER Primary Care Provider [phone] ANGÉLICA ESTEVES Walking Dragline Oiler Assessment Encounter Date Assessment Date Assessment LastModified by Organization Details LastModified Time 09/03/2019 09/03/2019 09/25/17 vit B12 1025 <-- 02/01/17 B12 364, 09/25/17 vit D 34 <-- 02/01/17 vit D 27 02/01/17 ALEXANDR 1:160 fine-coarse speckled TSH wnl [email or web address] Not available 09/03/2019 14:34:54 01/13/2021 01/13/2021 09/25/17 vit B12 1025 <-- 02/01/17 B12 364, 09/25/17 vit D 34 <-- 02/01/17 vit D 27 02/01/17 ALEXANDR 1:160 fine-coarse speckled TSH wnl [email or web address] Not available 01/13/2021 10:02:02 05/02/2022 05/02/2022 Assessment: 51-year-old female with left breast persistent mastalgia Plan: There is no radiologic or physical exam evidence to suggest malignancy. We reviewed together the basic approach to control of breast pain. These include a proper fitting bra, decrease caffeine intake as well as supplementation with vitamin D, vitamin B6, flaxseed, evening primrose oil and magnesium. I am also recommending that the patient massage the area of tenderness and attempt to break up some of the dense breast/scar tissue. The patient normally uses Biofreeze on her neck and I have recommended that she use this along the area of pain on her breast. I briefly outlined further treatment with prescription pharmacologic agents, but given that her pain is very low and does not prevent her from her normal daily activities, I feel that we should attempt the above recommendations for at least 3 months before considering any prescription medications as these carry higher side effects/risks when taking them. She is to return in 3 months if she continues to have this breast pain or as needed. She is to continue her yearly breast exam and mammogram with her primary care physician or myself. Not available 05/02/2022 13:21:17 Plan of Treatment Reminders Order Date Submit Date Provider Last Modified By Organization Details Last Modified Time Details Appointments None recorded. Lab None recorded. Referral breast surgery referral 2021 022 [email or web address] Not available 08:00:14 Procedures None recorded. Surgeries None recorded. Imaging None recorded. Medication Orders Ajovy Syringe 225 mg/1.5 mL subcutaneo us 2020 021 [facility], [address], [place], [address], 08:17:14 rizatripta n 10 mg disintegra ting tablet 2020 021 [facility] - [facility], [address], [place], [address], 10:59:50 Ajovy Syringe 225 mg/1.5 mL subcutaneo us 2018 019 [facility] - [facility], [address], [place], [address], 9 17:20:09 rizatripta n 10 mg disintegra ting tablet 2018 019 [facility] - [facility], [address], [employer], [place], [address], 9 17:20:13 Patient TargetsNo targets recorded. Patient Instructions Encounter Date Encounter Id Patient Instructions Last Modified By Organization Details Last Modified Time 09/03/2019 [id number] Migraine: - continue Ajovy - recommend trial of coming off Topamax (now on Topamax 25 mg only once daily) - CoQ10 200 mg qam and consider adding magnesium citrate 250 mg 1-2 caps qhs - peppermint oil or DoTerra Past Tense. -- use on traps, neck, tense muscles, temples, forehead, occipital area; take to work and use at work - Continue chewable baby aspirin 81 mg daily with food - Maxalt-ENGINEER TECHNICIAN at onset migraine -- Can repeat Maxalt after 2 hours but do not exceed more than 2 a day - Continue MVI, B12 and vitamin D - continue turmeric and krill oil - avoiding falling asleep on couch and interrupting her sleep to take the dogs out; set a regular bed time that will allow you 7-9 uninterrupted hours of sleep. 02/01/17 Vitamin D25-OH 27 --> 34 (09/2017)--> 46 (10/16/18) on 2000 iu vit D3 Completed Rx 50,000 units weekly and now supplementing 2000 iu daily - pt counseled on importance of maintaining her vitamin D level, knowing her dose, her goal level and what dose she has taken that gets her to goal - goal level vit D25-OH is 50-70. Not available 09/03/2019 17:18:55 01/13/2021 [id number] Migraine: - continue Ajovy - recommend trial of coming off Topamax (now on Topamax 25 mg only once daily) - CoQ10 200 mg qam and consider adding magnesium citrate 250 mg 1-2 caps qhs - peppermint oil or DoTerra Past Tense. -- use on traps, neck, tense muscles, temples, forehead, occipital area; take to work and use at work - Continue chewable baby aspirin 81 mg daily with food - Maxalt-ENGINEER TECHNICIAN at onset migraine -- Can repeat Maxalt after 2 hours but do not exceed more than 2 a day - Continue MVI, B12 and vitamin D - continue turmeric and krill oil - avoiding falling asleep on couch and interrupting her sleep to take the dogs out; set a regular bed time that will allow you 7-9 uninterrupted hours of sleep. 02/01/17 Vitamin D25-OH 27 --> 34 (09/2017)--> 46 (10/16/18) on 2000 iu vit D3 Completed Rx 50,000 units weekly and now supplementing 2000 iu daily - pt counseled on importance of maintaining her vitamin D level, knowing her dose, her goal level and what dose she has taken that gets her to goal - goal level vit D25-OH is 50-70. [email or web address] Not available 01/13/2021 10:02:02 01/11/2022 [id number] 51 yo new pt her e today with left sided breast pain Exam feels like Fibrocystic breast disease - we did discuss evening primrose oil as an option to help with fibrocystic changes. With multiple normal imaging studies feel this is benign. Will go on and get her scheduled to see Dr. Rojo with breast surgery to discuss excision of the area to improve pain as her main goal at this point is to eliminate the pain. She has signed a consent for us to get her imaging from [facility]. RTC PRN Not available 01/11/2022 13:38:36 05/02/2022 [id number] __60_ minutes wa s spent on this encounter; including preparing to see the patient, which involved review/interpretat ion of diagnostics and reports; obtaining and/or reviewing separately obtained history; performing appropriate physical exam; ordering/schedulin g medications, tests or procedures; communicating findings and counseling/educati ng the patient, family and/or caregiver; documentation in EMR; and care coordination. Not available 05/02/2022 13:16:28 Reason for Referral Breast Surgery Referral for Pain of breast Referring Physician: Angélica Esteves, Neurology, Encounter Date: 01/11/2022 Results Created Date Observation Date Name Description Value Unit Range Abnormal Flag Note LastModifiedBy Organization Detail LastModifiedTime 01/08/20 20 01/09/2020 vitam in D, 25-hy droxy , total , serum vitamin D 25-oh, total 44 NG/mL >=30 NG/mL normal Not Available [facility] [address], [place], [address], 01/09/2020 10:50:13 Result Notes None recorded. Problems Name Problem SNOMED Code Status Onset Date Resolution Date Notes Provider Name and Address Organization Details Recorded Time Headache disorder 577008000 Active 2015 From Automated Load;Provi jamshid: Jeanne Ocampo;Stat us: Active Not Available [facility] 7 06:09:28 Recurrent painful ophthalmo plegic neuropath y 14103996 Active 2015 From Automated Load;Provi jamshid: Jeanne Ocampo;Stat us: Active Not Available [facility] 7 06:09:28 Refractor y migraine without aura 223835542 Active 2015 From Automated Load;Provi jamshid: Jeanne Ocampo;Stat us: Active Not Available [facility] 7 07:39:26 Problem Notes None recorded. Procedures Surgical History Date Name Laterality Status Provider Name and Address Organization Details Recorded Time 10/20/20 21 Date of Last Mammogram completed [facility] 04/27/2022 16:27:41 11/20/19 10 Knee arthroscopy/surg terrence completed [facility] 04/27/2022 16:26:36 11/20/19 07 Carpal tunnel surgery completed [facility] 04/27/2022 16:26:52 11/20/19 00 Hysterectomy completed [facility] 04/27/2022 16:26:06 Imaging Results None recorded. Procedure Notes None recorded. Medical Equipment None Reported. Allergies No known drug allergies Medications Name Sig Start Date Stop Date Status Note LastModified by Organization Details LastModified Time Prescript ion - Prior Authoriza tion Request 09/03 completed Not Available Not Available Not Available methocarb opal 500 mg tablet TAKE 1 TO 2 TABLETS BY MOUTH THREE TIMES DAILY NEEDED active Not Available Not Available No t Available azithromy james 250 mg tablet TAKE 2 TABLETS BY MOUTH ON DAY 1, AND THEN TAKE 1 TABLET BY MOUTH ONCE A DAY ON DAY 2 THROUGH DAY 5 01/11 completed Not Available Not Available Not Available tretinoin 0.025 % topical cream APPLY TOPICALL Y TO THE SKIN NIGHTLY 01/11 completed Not Available Not Available Not Available ibuprofen 200 mg capsule Daily 10/16 completed Frequenc y: daily;Me dication Descript ion: ibuprofe n; Dosage:1 ; Route:or al; refills: 0 Not Available Not Available Not Available ondansetr on HCl 4 mg tablet 09/03 completed Not Available Not Available Not Available famotidin e 40 mg tablet 04/27 completed Not Available Not Available Not Available Nexium 40 mg capsule,d elayed release Daily 09/25 completed Frequenc y: daily;Me dication Descript ion: esomepra zole; Dosage:1 ; Route:or al; refills: 0 Not Available Not Available Not Available topiramat e 25 mg tablet Take 1 tablet twice a day by oral route for 30 days. 01/11 completed Not Available Not Available Not Available fluocinon israel 0.05 % topical ointment APPLY LIBERALL Y TOPICALL Y TO AFFECTED AREA TWICE DAILY 04/27 completed Not Available Not Available Not Available sulfameth oxazole 800 mg-trimet hoprim 160 mg tablet 01/11 completed Not Available Not Available Not Available omeprazol e 40 mg capsule,d elayed release TAKE 1 CAPSULE BY MOUTH IN THE MORNING FOR 30 DAYS active Not Available Not Available No t Available triamcino lone acetonide 0.1 % topical cream APPLY CREAM EXTERNAL LY TO AFFECTED AREA THREE TIMES DAILY 04/27 completed Not Available Not Available Not Available ciclopiro x 8 % topical solution APPLY TOPICALL Y ONCE DAILY 04/27 completed Not Available Not Available Not Available citalopra m 20 mg tablet TAKE 1 TABLET BY MOUTH ONCE DAILY 04/27 completed Not Available Not Available Not Available metoclopr amide 5 mg tablet 02/01 completed Not Available Not Available Not Available ciproflox acin 0.3 % eye drops 02/01 completed Not Available Not Available Not Available benzonata te 100 mg capsule TAKE 1 CAPSULE BY MOUTH THREE TIMES DAILY NEEDED FOR COUGH 01/11 completed Not Available Not Available Not Available rizatript an 10 mg disintegr ating tablet DISSOLVE 1 TABLET IN MOUTH ONCE DAILY NEEDED active Not Available Not Available No t Available biotin 10,000 mcg capsule Take 1 capsule every day by oral route. active Not Available Not Available No t Available buspirone 10 mg tablet TAKE 1 TABLET BY MOUTH TWICE DAILY DIRECTED active Not Available Not Available No t Available estradiol 0.01% (0.1 mg/gram) vaginal cream APPLY 1 GRAM VAGINALL Y TWICE WEEKLY 01/11 completed Not Available Not Available Not Available methylpre dnisolone 4 mg tablets in a dose pack TAKE BY MOUTH DIRECTED ON INSIDE OF PACKAGE FOR 6 DAYS 01/11 completed Not Available Not Available Not Available Vitamin D2 1,250 mcg (50,000 unit) capsule Take 1 capsule every week by oral route. 10/16 completed decrease d to 2000 u Not Available Not Available Not Available brompheni ramine-ps eudoephed rine-DM 2 mg-30 mg-10 mg/5 mL oral syrup 10/16 completed Not Available Not Available Not Available Fioricet 50 mg-325 mg-40 mg tablet Every six hours 09/25 completed Frequenc y: q6h;Alt Frequenc y: prn;Medi cation Descript ion: acetamin ophen/bu talbital /caffein e; Dosage:1 ; Route:or al; refills: 0 Not Available Not Available Not Available estradiol 0.1 mg/24 hr weekly transderm al patch As Directed 09/25 completed Not Available Not Available Not Available amoxicill in 875 mg-potass ium clavulana te 125 mg tablet 09/25 completed Not Available Not Available Not Available Premarin 0.625 mg/gram vaginal cream INSERT ONE APPLICAT ORFUL VAGINALL Y TWO TO THREE TIMES A WEEK OFF 5 DAYS THEN REPEAT CYCLE 01/11 completed Not Available Not Available Not Available Climara 0.06 mg/24 hr transderm al patch 01/11 completed Not Available Not Available Not Available Flovent HFA 220 mcg/actua tion aerosol inhaler 04/27 completed Not Available Not Available Not Available Co Q-10 active Not Available Not Avail able Not Available vitamin E active Not Available Not Barbara ilable Not Available Aspir-81 active Not Available Not Avai lable Not Available Lipoflavo noid active Not Available Not Available Not Available multivita min active Not Available Not Available Not Available MoviPrep 100 gram-7.5 gram-2.69 1 gram oral powder packet 09/25 completed Not Available Not Available Not Available Havrix (PF) 1,440 NILSA unit/mL intramusc ular syringe 10/16 completed Not Available Not Available Not Available turmeric (bulk) active Not Available Not Available Not Available Vitamin D3 50 mcg (2,000 unit) capsule Take 1 capsule every day by oral route. active Not Available Not Available No t Available domperido ne 10 mg tablet Take 1 tablet 4 times a day by oral route. active Not Available Not Available No t Available Vitamin B12 5000mcg daily active Not Available Not Available No t Available Joint CinnaBid active Not Available Not Available Not Available Flucelvax Quad (PF) 60 mcg (15 mcg x 4)/0.5 mL IM syringe 09/25 completed Not Available Not Available Not Available Fluarix Quad (PF) 60 mcg (15 mcg x 4)/0.5 mL IM syringe 10/16 completed Not Available Not Available Not Available krill oil 350 mg-om-3 90 mg-dha 24 mg-epa 50 mg-phosph olipids capsule Take by oral route. active Not Available Not Available No t Available Ajovy Syringe 225 mg/1.5 mL subcutane ous USE DIRECTED SUBCUTAN EOUSLY ONCE EVERY MONTH active Not Available Not Available No t Available Xofluza 40 mg tablet 01/11 completed Not Available Not Available Not Available Fluzone Quad (PF) 60 mcg (15 mcg x 4)/0.5 mL IM syringe 01/13 completed Not Available Not Available Not Available Ajovy 225 mg/1.5 mL subcutane ous auto-inje ctor 01/13 completed Not Available Not Available Not Available Fluzone Quad (PF) 60 mcg (15 mcg x 4)/0.5 mL IM syringe PHARMACI ST ADMINIST ERED IMMUNIZA TION ADMINIST ERED AT TIME OF DISPENSI NG 01/13 completed Not Available Not Available Not Available Vitals Date Recorded Body height Body mass index (BMI) Body weight Provider Name and Address Organization Details Last Updated DateTime 01/11/2022 162.56 cm 23.5 kg/m2 05867.15 g Ricci Shah [facility] 01/11/2022 12:59:27 Date Recorded Body height Body mass index (BMI) Body weight Heart rate Systolic blood pressure Diastolic blood pressure Provider Name and Address Organization Details Last Updated DateTime 1 162.56 cm 25.2 kg/m2 87817.0 8 g 74 /min 110 mm[Hg] 78 mm[Hg] [facility] 10:00:14 Date Recorded Body height Body mass index (BMI) Body weight Body temperature Heart rate Respiratory rate Systolic blood pressure Diastolic blood pressure Provider Name and Address Organization Details Last Updated DateTime 2 162.56 cm 23.5 kg/m2 52844.1 5 g 98 [degF] 70 /min 18 /min 118 mm[Hg] 76 mm[Hg] Dorota Soria [facility] 2 08:52:07 Date Recorded Body height Body mass index (BMI) Body weight Heart rate Systolic blood pressure Diastolic blood pressure Provider Name and Address Organization Details Last Updated DateTime 9 162.56 cm 21.1 kg/m2 67879.8 6 g 74 /min 112 mm[Hg] 80 mm[Hg] [facility] 9 13:51:58 Social History Question Answer Notes LastModified by Organizat ion Details LastModified Time Tobacco Smoking Status [facility]2016 13:26:06 How Many Years Have You Consumed Alcohol? 0 Information not available 11/07/2016 Live Alone Or With Others? With Others Boyfriend Information not available 11/07/2016 Marital Status Informatio n not available 11/07/2016 What Was The Date Of Your Most Recent Tobacco Screening? 05/02/2022 Information not available 04/27/2022 How Much Tobacco Do You Smoke? No Information not available 11/07/2016 Has Tobacco Cessation Counseling Been Provided? No Information not available 04/27/2022 How Many Years Have You Smoked Tobacco? 0 Information not available 11/07/2016 Have You Recently Traveled Abroad? No Information not available 04/27/2022 Sex: Unknown Functional Status Question Answer Note LastModified by Organizat ion Details LastModified Time Do you use any illicit or recreational drugs? No Information not available 04/27/2022 Do you or have you ever used any other forms of tobacco or nicotine? No Information not available 04/27/2022 What is your level of alcohol consumption? 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 Family History Relationship Description Onset Age of this Age Resolved Age Notes LastModified by Organization Details LastModified Time Brother Diabetes mellitus Not available 11/07 13:24:04 Brother Hypertensive disorder Not available 11/07 13:25:01 Mother Heart disease Not available 11/07 13:24:30 Maternal Grandmother Heart disease Not available 11/07 13:24:30 Maternal Grandmother Cerebrovascu lar accident unsure if matern al or patern al Not available 05/02/2022 08:52:32 Maternal Grandfather Heart disease Not available 11/07 13:24:30 Father Hypertensive disorder Not available 11/07 13:25:01 Paternal Grandfather Hypertensive disorder Not available 11/07 13:25:01 Notes:No Family hx of Cancer , or Skin Cancer Medical History Condition Response Ovarian Cancer N Diabetes N Coronary Artery Disease N Thyroid Disease N Breast Cancer N Blood Transfusion Y Congestive Heart Failure (CHF) N Eczema N Migraines Y Diverticulitis N Stroke N Asthma N COPD N Crohn's Disease N Breast Problem Y Liver Disease N Heart Attack ([place]) N Heart Disease N Hypertension N Kidney Disease N Gynecological History Statement/Question Response # of Pregnancies 2 Age at first live 25 Abnormal Pap Y Regular Cycles N Date of Last Mammogram 10/20/2021 Date of LMP 11/20/1999 # of Births 1 Post Menopausal Bleeding N Real Heavy Periods N Total months of 9 Current Control Method Hysterectom y Age at Menarche 14 Number of years of OCP use 12 Most Recent Mammogram History of Breast Biopsy? (when/where) N one Infertility medication use? N Painful Periods N Sexually Active? Y # of Miscarriages 1 Date of Last Pap Smear Colonoscopy Hormone Replacement Therapy Y Obstetrics History GPAL:G 1 P 1 0 1 1 Type Value Multiple Births 0 Full Term 1 Induced 0 Spontaneous 1 Premature 0 Living 1 Ectopics 0 Total 1 Past Encounters Encounter ID Performer Location Encounter Start Date Encounter Closed Date Diagnosis/Indication Diagnosis SNOMED-CT Code Diagnosis ICD10 Code Diagnosis Note [id number] JEANNE OCAMPO MD [facility]UROLOGY [facility] [address] [place] [address] 02/01/2017 09:12:46 02/01/2017 10:11:29 Refractory migraine without aura 968559707 G43.711 no longer refractory since starting Topamax but still with about 2 migraines per month and 1 headache per week. 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 May not be absorbing nutrients, increased risk of dementia. Will check TSH vitamin D and B12 levels Muscle fasciculation 824 68665 R25.3 involuntar y muscle twitches in L thumb and abdomen- will check magnesium, TSH, ALEXANDR Migraine w ithout aura, not refractory 100680060 G43.009 Migraine with aura, complicate d migraine. No known FH. Pt on estrogen. No PMH miscarriag e or blood clots other than previous menstrual cycles with heavy clotting. - Will check ALXEANDR and TSH - Continue ASA 81mg - Continue Topamax 25 mg qd, increase to bid after 3 d - Take Zofran at onset of migraine +/- Maxalt-ENGINEER TECHNICIAN if migraine builds. -- Can repeat Maxalt after 2 hours but do not exceed more than 2 a day - Continue MVI - Start B12 and vitamin D - RTC 6 months Dizziness 337435497 R42 new problem, effecting balance but no vertigo; sounds to be vestibular , but mild and no signs on exam; denies sinus congestion ; + PND, rhinorrhea ; cannot exclude inflammato ry- will check ALEXANDR, B12, TSH- pt counseled regarding potential causes - low threshold for MRI brain if symptoms worsen [id number] JEANNE OCAMPO MD NEUROLOGY [facility] [address] [place] [address] 09/25/2017 13:49:46 09/25/2017 14:55:50 Migraine without aura, not refractory [id number] G43.009 Migraine with aura, complicate d migraine. No known FH. Pt on estrogen. No PMH miscarriag e or blood clots other than previous menstrual cycles with heavy clotting. at times refractory to medication and status migrainosi s improved response to tx with addition of Topamax but still with about 2 migraines per month and 1 headache per week. - Trial of peppermint oil or DoTerra Past Tense. -- use on traps, neck, tense muscles, temples, forehead, occipital area; take to work and use at work- Continue ASA 81mg - Continue Topamax 25 mg bid - Take Zofran at onset of migraine +/- Maxalt-ENGINEER TECHNICIAN if migraine builds. -- Can repeat Maxalt after 2 hours but do not exceed more than 2 a day - Continue MVI - Continue B12 and vitamin D - counseled on importance of regular and consolidat ed full night sleep; counseled on sleep hygiene, avoiding falling asleep on couch and interuptin g her sleep to take the dogs out. Recommend that she set a regular bed time that will give her 7-9 unterupted hours of sleep.- RTC 1Y or sooner PRN Ophthalmic migraine 9565 5001 G43.B0 ophthalmic migraine, rare complicate d migraine (unilatera l numbness), migraine with aura - pt advised: A dailydrink plenty of water, stay hydrated lowest dose possibly of estrogen and off as soon as feasible per BARK FITTER/PCP; counseled on concerns for increased vascular risk in pt with complicate d migraine (numbness one side), and migraine with aura, particular ly on estrogen Dizziness [id number] R42 improvemen t in dizziness; effecting balance but no vertigo; sounds to be vestibular , but mild and no signs on exam; denies sinus congestion ; + PND, rhinorrhea ; cannot exclude inflammato ry- ALEXANDR mildly elevated; low vit D and low vit B12-- monitor ALEXANDR - will repeat at f/u-- B12 and vit D supplement ation - low threshold for MRI brain if symptoms worsen Fatigue 08805302 R53.83 Found to have low B12 on 02/01/17 now supplement ing daily w/ 1500 mcg SL form. On Nexium. May not be absorbing nutrients, increased risk of dementia.- continue vitamin supplement s- repeat vit B12 and vit D levels CC: Gómez Dozier MD Vitamin D deficiency [phone] 11587 E55.9 02/01/17 Vitamin D 27 --> 34Pt was rx 50,000 units weekly and is now supplement ing 2000 iu daily-Will repeat levels today. Seasonal allergy 1125735 04 J30.2 -Continue Flonase- [facility] Sinus Rinse w/distille d water and Zyrtec daily. [id number] JEANNE OCAMPO MD NEUROLOGY [facility] [address] [address] [place] [address] 10/16/2018 13:37:27 10/16/2018 15:30:37 Recurrent painful ophthalmoplegic neuropathy [id number] G43.B0 Migraine w ithout aura, not refractory [id number] G43.009 Migraine with aura, complicate d migraine. No known FH. Pt on estrogen. No PMH miscarriag e or blood clots other than previous menstrual cycles with heavy clotting. at times refractory to medication and status migrainosi simproved response to tx with addition of Topamax but still with about 3 migraines per month (lasting 1-4 days) and 1 headache per week. - will give a trial of Ajovy- recommend she begin CoQ10 200-300 mg qam and magnesium citrate 250 mg 1-2 caps qhs- Continue Topamax 25 mg bid- again recommend trial of peppermint oil or DoTerra Past Tense. -- use on traps, neck, tense muscles, temples, forehead, occipital area; take to work and use at work- Continue ASA 81 mg- Maxalt-ENGINEER TECHNICIAN at onset migraine-- Can repeat Maxalt after 2 hours but do not exceed more than 2 a day- Continue MVI- Continue B12 and vitamin D- counseled on importance of regular and consolidat ed full night sleep; counseled on sleep hygiene, avoiding falling asleep on couch and interrupti ng her sleep to take the dogs out. Recommend that she set a regular bed time that will give her 7-9 uninterrup teagan hours of sleep.- RTC 6 months or sooner PRN CC: RODRI Pozo and Gómez Dozier MD Ophthalmic migraine [id number] G43.B0 ophthalmic migraine, rare complicate d migraine (unilatera l numbness), migraine with aura - pt advised: A 81 mg dailydrink plenty of water, stay well hydratedco unseled on concerns of increased vascular risk with estrogen/H RT/contrac eption and either avoiding all togher (prefered) or lowest dose possibly of estrogen and off as soon as feasible per [facility]/PCP; counseled on concerns for increased vascular risk in pt with complicate d migraine (numbness one side), and migraine with aura, particular ly on estrogen Fatigue [id number] R53.83 Found to have low B12 on 02/01/17 now supplement ing daily w/ 1500 mcg SL form. Now off Nexium which may have contribute d to decreased absorption of nutritents . -- increased risk of dementia.- continue vitamin supplement s 40 min office visit wth greater than 50% in counseling regarding tx of migraine, new medication s for tx, mechanism, potential SE, importance of nutrition, vitamins, and for increased vasc risk, importance of ASA in migraine wtih aura/optha lmic migraine pts. Vitamin D deficiency [phone] 89426 E55.9 02/01/17 Vitamin D 27 --> 09/2017 34Pt was rx 50,000 units weekly and is now supplement ing 2000 iu daily-Will repeat levels today. Dizziness [id number] R42 improvemen t in dizziness; effecting balance but no vertigo; sounds to be vestibular , but mild and no signs on exam; denies sinus congestion ; + PND, rhinorrhea ; cannot exclude inflammato ry- ALEXANDR mildly elevated; low vit D and low vit B12, now supplement ing-- monitor ALEXANDR - will repeat at f/u-- B12 and vit D supplement ation - low threshold for MRI brain if symptoms worsen High antibody titer 4417 35967 R76.0 ALEXANDR 1:160 - will repeat [id number] JEANNE OCAMPO MD NEUROLOGY [facility] [address] [place] [address] 10/18/2018 09:42:52 10/18/2018 10:31:01 [id number] JEANNE OCAMPO MD NEUROLOGY [facility] [address] [place] [address] 09/03/2019 13:45:44 09/03/2019 14:53:00 Recurrent painful ophthalmoplegic neuropathy [id number] G43.B0 Migraine w ithout aura, not refractory [id number] G43.009 Migraine with aura, complicate d migraine. No known FH. Pt on estrogen. No PMH miscarriag e or blood clots other than previous menstrual cycles with heavy clotting. at times refractory to medication and status migrainosu simproved response to tx with addition of Topamax and so much better since adding Ajovy and has been able to decrease her dose of Topamax. Prior to adding Ajovy to Topamax, she was having about 3 migraines per month (lasting 1-4 days) and 1 headache per week. Now down to 0-3 migraines per month. - continue Ajovy- Will give a trial of coming off Topamax (now on Topamax 25 mg only once daily)- CoQ10 200 mg qam and consider adding magnesium citrate 250 mg 1-2 caps qhs- peppermint oil or DoTerra Past Tense. -- use on traps, neck, tense muscles, temples, forehead, occipital area; take to work and use at work- Continue ASA 81 mg- Maxalt-ENGINEER TECHNICIAN at onset migraine-- Can repeat Maxalt after 2 hours but do not exceed more than 2 a day- Continue MVI, B12 and vitamin D- continue turmeric and krill oil- counseled on importance of regular and consolidat ed full night sleep; counseled on sleep hygiene, avoiding falling asleep on couch and interrupti ng her sleep to take the dogs out. As previously discussed, recommend that she set a regular bed time that will give her 7-9 uninterrup teagan hours of sleep.- RTC 1 year or sooner PRN PCP: RODRI Pozo and Gómez Dozier MD Ophthalmic migraine [phone] G43.B0 ophthalmic migraine, rare complicate d migraine (unilatera l numbness), migraine with aura - pt advised: A 81 mg dailydrink plenty of water, stay well hydratedco unseled on concerns of increased vascular risk with estrogen/H RT/contrac eption and either avoiding all togher (prefered) or lowest dose possibly of estrogen and off as soon as feasible per [facility]/PCP; counseled on concerns for increased vascular risk in pt with complicate d migraine (numbness one side), and migraine with aura, particular ly on estrogen High antibody titer 4417 78598 R76.0 ALEXANDR 1:160 (02/01/17) --> negative (10/16/18) Vitamin D deficiency 347 16681 E55.9 02/01/17 Vitamin D 27 --> 09/2017 34 --> 46 (10/16/18) on 2000 iu vit D3Pt was rx 50,000 units weekly and is now supplement ing 2000 iu daily- pt counseled on importance of maintainin g her vitamin D level, knowing her dose, her goal level and what dose she has taken that gets her to goal- goal level vit D25-OH is 50-70. Dizziness [id number] R42 improvemen t in dizziness; effecting balance but no vertigo; sounds to be vestibular , but mild and no signs on exam; denies sinus congestion ; + PND, rhinorrhea ; cannot exclude inflammato ry- ALEXANDR mildly elevated; low vit D and low vit B12, now supplement ing-- monitor ALEXANDR periodical ly, alexia with return of sx-- B12 and vit D supplement ation- low threshold for MRI brain if symptoms worsen [id number] JEANNE OCAMPO MD [facility] [address] [place] [address] 01/08/2020 11:46:09 01/08/2020 15:47:11 [id number] JEANNE OCAMPO MD NEUROLOGY [facility] [address] [place] [address] 01/13/2021 09:29:08 01/13/2021 11:02:03 Recurrent painful ophthalmoplegic neuropathy [id number] G43.B0 Migraine w ithout aura, not refractory [id number] G43.009 Migraine with aura, complicate d migraine. No known FH. Pt on estrogen. No PMH miscarriag e or blood clots other than previous menstrual cycles with heavy clotting. at times refractory to medication and status migrainosu simproved response to tx with addition of Topamax and so much better since adding Ajovy and has been able to decrease her dose of Topamax. Prior to adding Ajovy to Topamax, she was having about 3 migraines per month (lasting 1-4 days) and 1 headache per week. Now down to 0-3 migraines per month. - continue Ajovy- Now off Topamax and doing fine- CoQ10 200 mg qam and if worsening headache or neck tension, then would magnesium citrate 250 mg 1-2 caps qhs- PRN peppermint oil or DoTerra Past Tense. -- use on traps, neck, tense muscles, temples, forehead, occipital area; take to work and use at work- Continue ASA 81 mg- Maxalt-ENGINEER TECHNICIAN at onset migraine-- Can repeat Maxalt after 2 hours but do not exceed more than 2 a day- Continue MVI, B12 and vitamin D- continue turmeric and krill oil- commended for better sleep- RTC 1 year or sooner PRN Ophthalmic migraine 9565 5001 G43.B0 ophthalmic migraine, rare complicate d migraine (unilatera l numbness), migraine with aura - pt advised: A 81 mg dailydrink plenty of water, stay well hydratedco unseled on concerns of increased vascular risk with estrogen/H RT/contrac eption and either avoiding all togher (prefered) or lowest dose possibly of estrogen and off as soon as feasible per [facility]/PCP; counseled on concerns for increased vascular risk in pt with complicate d migraine (numbness one side), and migraine with aura, particular ly on estrogen High antibody titer 4417 71710 R76.0 ALEXANDR 1:160 (02/01/17) --> negative (10/16/18) Vitamin D deficiency 347 86389 E55.9 02/01/17 Vitamin D 27 --> 09/2017 34 --> 46 (10/16/18) on 2000 iu vit D3Pt was rx 50,000 units weekly and is now supplement ing 2000 iu daily- pt counseled on importance of maintainin g her vitamin D level, knowing her dose, her goal level and what dose she has taken that gets her to goal- goal level vit D25-OH is 50-70. Dizziness [id number] R42 improvemen t in dizziness; effecting balance but no vertigo; sounds to be vestibular , but mild and no signs on exam; denies sinus congestion ; - be sure to keep sinuses clear; no congestion - work on ROM cervical and use peppermint oil frequently - ALEXANDR mildly elevated; low vit D and low vit B12, now supplement ing-- monitor ALEXANDR periodical ly, alexia with return of sx-- B12 and vit D supplement ation- low threshold for MRI brain and/or vestibular rehab if symptoms worsens PCP: RODRI Pozo and Gómez Dozier MD [id number] [facility] [address] [place] [address] 01/11/2022 12:12:21 01/11/2022 13:39:08 Pain of breast [id number] N64.4 [id number] TEE ROJO MD BREAST SURGERY [address] [place] [address] 05/02/2022 08:49:07 05/03/2022 09:21:01 Pain of breast 92179877 N64.4 Health Concerns Section Related Observation LastModified by Organization Detai ls LastModified Time None Recorded Concern Status LastModified by Organization Details LastModified Time None Recorded Advance Directives Directive None Recorded Payers Insurance Date Sequence Insurance Name Policy Number Policy Giron Covered Member ID Giron Member ID Guarantor Name 05/02/2022 1 [place] [id number] R Cesar Liao [id number] Cesar Liao 01/13/2021 1 [employer] [id number] Cesar S Liao [id number] Cesar Liao Notes Date Note Type Note Provider Name and Address Organization Details Recorded Time 09/03/2019 text/html 1 yr f/u migrain e Cesar is doing so much better since she started Ajovy. She will go a month or two w/o a migraine, then one month may have 2-3 migraines. She has no idea why, what the triggers are or if just for some reason the Ajovy wasn't as effective that time. She is using it exactly the same each time, letting it come to room temp, etc. She continues Topamax but was able to decrease to just 1 per day instead of 2 tabs daily, so only on 25 mg. She has not needed Maxalt for a few months now. Mostly she uses peppermint oil and finding it really effective. She doesn't use Zofran. I note that she is on domperidone from Dr. Aguirre (GI) for her stomach. She is still on her baby ASA daily. Very infrequent ophthalmic migraines. She is still taking her vitamins, including vit D3 2000 iu daily, has been consistent with taking it. She is also on CoQ10, B12, MVI, krill oil, turmeric and biotin. She was climbing on some boxes in her garage and fell, hit her right knee cap in May and is still on a leave of absence from work. It's pretty painful. She has been doing better with sleeping. Less fatigue, maybe because she is not working. JEANNE OCAMPO MD [address] [place] [address], [phone], [facility] 09/03/2019 17:19:48 01/13/2021 text/html 1 yr f/u migrain e Cesar is doing so much better since she started Ajovy. It seems to wear off at about 3 weeks, then she typically has only about 1 migraine that week before the injections. It's not bad, pretty easily treated with Maxalt-ENGINEER TECHNICIAN. No Zofran needed. She gave it up - caused really bad constipation. She has been using peppermint oil and it really helps too. She has gone off Topamax since she in on the injections. SHe needs refills on Ajovy, She is still on daily domperidone from Dr. Aguirre (GI) for her stomach. It helps keep the GI motility to empty her stomach. She is still on her baby ASA daily. Last ophthalmic migraine was years ago at onset of migraines. She was at work, and thinks it only occurred that one time. She still gets swimmyheaded for a while, loses balance, occuring more frequently. No congestion or sinus issues. No colds for a while. Some neck tension b/l noted when turning her head, but in general she doesn't notice neck pain. She is still taking her vitamins, including a MVI, vit D3 2000 iu daily, CoQ10, B12, krill oil, turmeric and biotin and now also on Focus Factor and lipoflavonoid, started when she went back to school. She is taking classes. She wants to be a radiography tech. 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 She is taking physiology. Sleep has been good. No new rashes, joint or bone pains. JEANNE OCAMPO MD [address] [place] [address], [phone], [facility] 01/13/2021 10:59:34 01/11/2022 text/html Years ago she started having some left sided breast painHad a mammogram in Oct 2021 and a breast [facility] last week [facility] a [facility] or any density issuesBeen off of HRT for about 2 yearsCovid booster in Fall 2020Total Hyst in 2000Last pap in Oct 2021No fam h/o breast cancer This has been going on for 4-5 years - initially it was pain on the outer let brast and then up into the armpit and got real swollen and hot but they didn't think it was an infection and then swelling went down but still bigger than the right side - never had this issue prior with different sizes before this.Pretty much hurts all the time - used to come and go. just an annoying pain - not sharp, worse if she touches it.The US last week was all normal and so was the mammo in Oct. Had her mammogram and then went to [facility] for pap in Oct and at that visit she started arguing with Cesar and so went to PCP and that is where the US came in.NO nipple dc during this - only really the one episode of swelling but that one episode lasted 6-8 months.Has tried Vitamin E that didn't helpNo change since off the HRTWears good bras.Only one Ale8 per day and stopped that at one point without a change.Her goal is for the pain to go away ANGÉLICA ESTEVES PA-C [address] [place], [phone], [facility] 01/11/2022 13:38:44 05/02/2022 text/html Cesar Liao is a 51-year-old female who presents with a 5 to 7-year history of left breast pain in the upper outer quadrant. She notes that the left breast initially had redness and swelling in the upper outer quadrant. She reports that her primary care physician waved this off as an infection that would resolve on its own. She notes that the redness did resolve in the next few days but the swelling and tenderness remained. She notes that the pain felt like a burning and stabbing sensation at first but now is a constant heaviness and aching type of pain that is constant every day all day. She notes that this pain is usually a 1-2 out of 10 but goes up higher with trauma. She denies any trauma at the initial event. In the interim, the patient has changed her bras to ensure that they are proper fitting, reduced her oral caffeine intake, and did a trial of vitamin C, all without resolution of her pain. This pain does not limit her normal activities but is a nuisance that she would like to have alleviated. The patient denies any abnormal mammograms but does note that she had a left breast cyst aspiration at 6:00 back in 2006. No residual pain or issues at this location. On 11/08/2021 the patient had a bilateral mammogram that was BI-RADS 1. To further investigate the left breast pain, she had a left breast and axillary ultrasound on 01/05/2022 that was also BI-RADS 1. All of the patient's imaging and reports from [address] back to 2006 were reviewed. The patient's risk factor profile is as follows: A1, menarche at age 14 and she underwent a RONI/BSO in 1999. Her first was at age 25 and she breast-fed for 9 months. She took 12 years of OCP and then following her RONI/BSO she took Premarin for 20 years. She stopped the Premarin back in 2019 due to concerns that this was causing her breast pain. She has had no resolution of the breast pain even with cessation of the hormone replacement therapy. The patient denies any family or personal history of malignancy. TEE ROJO MD [address] [place] [address], [phone], [facility] 05/02/2022 13:21:36 OBGyn Episode Ob Episode Information Episode Created Date Number of Fetuses Patient Bloodtype Patient rh Status Prepregnancy Weight lbs Domestic Partner Domestic Partner Phone Father Name Health Program Director Status 04/27/20 22 1 CLOSED Fetus Data First Name Last Name Admitted to NICU Weight (g) Sex Living Outcome Pediatric Complications Fetus ID Race Codes Race Delivery Type Full Term [id number] Attila Calculation Initial Attila Date Initial Exam Date Initial Exam Provider Initial Ultrasound Date Last Menstrual Period Date Ultra Sound Weeks Gestation 0 Eighteen To Twenty Week Attila Update Ultra Sound Date Fundal Height At Umbil Quickening Date Ultra Sound Latest Weeks Gestation Final Attila Confirmed By Final Attila Confirmed Date Final Attila Date Ultra Sound Latest Days Gestation 0 0 Menstrual History Last Menstrual Date Menses Monthly On Bcp Conception Prior Menses Frequency Hcg Plus Date Menarche Onset Age Delivery Information Delivery Date Delivery Type Labor Anesthesia Weeks Gestation Incision Type Labor Labor Length Hrs Delivered By Post Complications Tubal Sterilization Discharge Date Comments 6 Discharge Information Feeding Method Contraceptive Method Maternal HG B and HCT Levels
--- OUTSIDE RECORDS SUMMARY | 2025-05-14 10:58 | XMS_ITS | Clinical Summary ---
Author Organization Healthcare Address [address] [place] [address] Care Team Providers Care [employer] Travel Counselor Name Role Phone Donna Rosado Primary Care Provider [phone] Bob Heredia MD Unavailable [phone] Allergies Active Allergy Reactions Criticality Noted Date Comments Other Hives Medium 12/12/2023 Vibramycin Wheat Cough,Diarrhea,Shortness of breath High 0 12/12/2023 Medications * This document contains information received from the source organization and may not represent a complete record from that organization. Biotin 10 MG capsule 1 capsule 1 (one) time each day. Active cholecalcifero l (Vitamin D-3) 50 MCG (2000 UT) capsule 1 capsule (50 mcg) 1 (one) time each day. Active cyanocobalamin (Vitamin B-12) 100 MCG tablet Take 1 tablet (100 mcg) by mouth 1 (one) time each day. Active fremanezumab-v frm (Ajovy) 225 MG/1.5ML injection Ajovy Syringe 225 mg/1.5 mL subcutaneous Active Krill Oil 350 MG capsule krill oil 350 mg-om-3 90 mg-dha 24 mg-epa 50 mg-phospholipids capsule Take by oral route. Active methocarbamol (Robaxin) 500 MG tablet methocarbamol 500 mg tablet TAKE 1 TO 2 TABLETS BY MOUTH THREE TIMES DAILY NEEDED Active omeprazole (PriLOSEC) [address] capsule omeprazole 40 mg capsule,delayed release TAKE 1 CAPSULE BY MOUTH IN THE MORNING FOR 30 DAYS Active ubrogepant (Ubrelvy) 100 MG tablet Take 1 tablet (100 mg) by mouth 1 (one) time if needed for migraine. After 2 hours, a second dose may be taken if needed. Maximum dose: 200 mg in 24-hour period. Active Aspirin 81 MG capsule Take 1 tablet by mouth 1 (one) time each day. Active busPIRone (Buspar) 10 MG tablet Take 2 tablets (20 mg) by mouth 1 (one) time each day. 1 Active citalopram (CeleXA) 20 MG tablet Take 1 tablet (20 mg) by mouth 1 (one) time each day. 1 Active Coenzyme Q10 (CO Q-10 PO) Take 1 capsule by mouth 1 (one) time each day. Active Vitamins-Lipot ropics (LIPOFLAVONOID PO) Take 2 tablespoonsful by mouth 1 (one) time each day. Active Multiple Vitamins-Betances als (MULTIVITAMINS /MINERALS ADULT PO) Take 1 capsule by mouth 1 (one) time each day. Active Turmeric (QC TUMERIC COMPLEX PO) Take 1 capsule by mouth 1 (one) time each day if needed. Active Vitamin E 180 MG (400 UNIT) capsule Take 1 capsule by mouth 1 (one) time each day. 0 Active Pyridoxine HCl (Vitamin B6) 100 MG tablet Take 1 capsule by mouth 1 (one) time each day. 1 Active Flaxseed, Linseed, (Flaxseed Oil) 1200 MG capsule Take 1 capsule by mouth 1 (one) time each day. 1 Active atorvastatin (Lipitor) 10 MG tablet Take 1 tablet (10 mg) by mouth 1 (one) time each day. 3 Active Active Problems Problem Noted Date Diagnosed Date Syncope and collapse 04/05/2023 PFO (patent foramen ovale) 03/21/2023 Dizzy spells 03/21/2023 Shortness of breath 03/21/2023 Chest pain 03/21/2023 Chest pressure 03/21/2023 Syncope 03/21/2023 Chronic migraine without aura 06/11/2018 Gastroparesis 06/11/2018 Leukopenia 10/17/2017 Headache disorder 08/23/2016 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 Refractory migraine without aura 08/23/2016 Immunizations Immunization Administration Dates Next Due Influenza, Unspecified 07/25/2017 Tdap 04/05/2021 Family History Medical History Relation Name Comments Fainting Maternal Grandmother Beggs Cardiac disorder Mother Diabetes Mother Heart attack Mother Hypertension Mother Stroke Paternal Grandmother Rocio Relation Name Status Comments Maternal Grandmother Michelle Mother Paternal Grandmother Rocio Social History Tobacco Use Types Packs/Day Years Used Date Smoking Tobacco: Never Smokeless Tobacco: Never Tobacco Cessation:Counseling Given: Not Answered Alcohol Use Standard Drinks/Week Comments Never 0 (1 standard drink = 0.6 oz pur e alcohol) PHQ-2 Answer Date Recorded Patient Health Questionnaire-2 Score 0 04/05/2023 PHQ-2A Answer Date Recorded Patient Health Questionnaire-2 Score 0 04/05/2023 Comments Unknown Sex and Gender Information Value Date Recorded Sex Assigned at Not on file Legal Sex Female 8:33 PM EDT Gender Identity Not on file Sexual Orientation Not on file Last Filed Vital Signs Vital Sign Reading Time Taken Comments Blood Pressure 100/64 12/12/2023 1:26 PM EST Pulse 77 12/12/2023 1:26 PM EST Temperature - - Respiratory Rate 14 09/06/2023 8:05 AM EDT Oxygen Saturation 95% 12/12/2023 1:26 PM EST Inhaled Oxygen Concentration - - Weight 62.1 kg (137 lb) 12/12/2023 1:26 PM EST Height 162.6 cm (5' 4 ) 09/06/2023 8:05 AM EDT Body Mass Index 23.52 09/06/2023 8:05 AM EDT Plan of Treatment Health Maintenance Due Date Last Done Comments [facility]-HIV Screening 1970 [facility]-Hepatitis C Screening 1970 [facility]-Infant/Child/Adol SDOH Screenings 1970 [facility]- SDOH Screenings 1988 [facility]-Adult SDOH Screenings 1988 CT Colonography 2015 Colonoscopy 2015 FIT-DNA 2015 FIT 2015 FOBT 2015 Sigmoidoscopy 2015 [facility]-Colorectal Cancer Screening 2015 [facility]-Breast Cancer Screening 2020 [facility]-Pneumococcal Vaccine: 50+ Years (1 of 1 - PCV) 2020 [facility]-Depression Screening 04/05/2024 04/05/2023 [id number] Vaccine ( - 2023- season) 2024 10/18/2023, 06/08/2022, 08/18/2021, Additional history exists [facility]-Influenza Vaccine (Season Ended) 2025 08/26/2022, 07/24/2020, 08/20/2019, Additional history exists [facility]-DTaP,Tdap,and Td Vaccines (2 - Td or Tdap) 04/05/2031 04/05/2021 [facility]-Hepatitis B Vaccines Completed 997, 05/09/1997, 03/14/1997 [facility]-Hepatitis A Vaccines Aged Out 01/18/2019, 05/21 No longer eligible based on patient's age to complete this topic [facility]-Zoster Vaccines Completed 05/05/2022, HPV Vaccines Aged Out No longer eligi ble based on patient's age to complete this topic [facility]-HIB Vaccines Aged Out No longer e ligible based on patient's age to complete this topic [facility]-IPV Vaccines Aged Out No longer e ligible based on patient's age to complete this topic [facility]-Rotavirus Vaccines Aged Out No lo nger eligible based on patient's age to complete this topic Insurance [facility] Care Teams [employer] Travel Counselor Relationship Specialty Start Date End Date Donna Rosado PA [address] [place] [address] PCP - General 02/24/23 Bob Heredia MD [address] [place] [address] Consulting Physician Neurology 12/12/23
--- OUTSIDE RECORDS SUMMARY | 2025-05-14 10:58 | XMS_ITS | Referral Summary ---
Author Organization [facility] Address [address] [place] [address] Care Team Providers Care Heavy Duty Custodian Name Role Phone Donna Rosado Primary Care Provider Allergies No known active allergies Medications aspirin (Vazalore) 81 mg Cap Take 1 tablet by mouth. Active atorvastatin (LIPITOR) 10 MG tablet Take 1 tablet (10 mg total) by mouth. 02/03/20 23 Active busPIRone (BUSPAR) 10 MG tablet Take 1 tablet (10 mg total) by mouth 2 (two) times daily. Active cholecalciferol, vitamin D3, 50 mcg (2,000 unit) Cap 50 mcg. Active citalopram (CeleXA) 20 MG tablet Take 1 tablet (20 mg total) by mouth daily. 02/08/20 23 Active cyanocobalamin (VITAMIN B-12) 100 MCG tablet Take 1 tablet (100 mcg total) by mouth. Active fremanezumab-vfr m (Ajovy Syringe) 225 mg/1.5 mL syringe Ajovy Syringe 225 mg/1.5 mL subcutaneous Active methocarbamoL (ROBAXIN) 500 MG tablet methocarbamol 500 mg tablet TAKE 1 TO 2 TABLETS BY MOUTH THREE TIMES DAILY NEEDED 02/08/20 23 Active iwjggxbo-iayd-ud lic acid (Tab-A-Meliza Multivitamin w-iron) tablet Activ e omeprazole (PriLOSEC) 40 MG capsule omeprazole 40 mg capsule,delayed release TAKE 1 CAPSULE BY MOUTH IN THE MORNING FOR 30 DAYS Active ubrogepant (Ubrelvy) 100 mg Tab Take 100 mg by mouth. 02/08/20 23 Active furosemide (LASIX) 20 MG tabletIndication s:Orthopnea Take 1 tablet (20 mg total) by mouth 2 (two) times daily. 60 tablet 01/12/20 24 Active Active Problems Problem Noted Date Diagnosed Date Family history of [place] (myocardial infarction) Migraines 01/10/2024 01/10/2024 Aspiration of gastric contents 01/10/2024 0 01/10/2024 Borderline hyperlipidemia 01/10/20242023 Breast pain 01/10/2024 01/10/2024 Dysphagia 01/10/2024 01/10/2024 Eosinophilic esophagitis 01/10/2024 024 Exposure to COVID-19 virus 01/10/202401/10 Functional dyspepsia 01/10/2024 01/10/2024 Gastroenteritis 01/10/2024 01/10/2024 History of hysterectomy 01/10/2024 01/10/20 24 Hoarseness 01/10/2024 01/10/2024 Hyperglycemia 01/10/2024 01/10/2024 Hypotension 01/10/2024 01/10/2024 Positive antinuclear antibody 01/10/2024 Recurrent syncope 01/10/2024 01/10/2024 Dyspnea 01/10/2024 01/10/2024 Sinusitis 01/10/2024 01/10/2024 Viral syndrome 01/10/2024 01/10/2024 Chest pain 03/21/2023 01/10/2024 Chest pressure 03/21/2023 01/10/2024 Dizzy spells 03/21/2023 01/10/2024 PFO (patent foramen ovale) 03/21/202301/10 Shortness of breath 03/21/2023 01/10/2024 Syncope and collapse 03/21/2023 01/10/2024 Chronic migraine without aura 06/11/2018 Gastroparesis 06/11/2018 01/10/2024 Leukopenia 10/17/2017 01/10/2024 Headache disorder 08/23/2016 01/10/2024 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 024 Refractory migraine without aura 08/23/2016 01/10/2024 Resolved Problems Problem Noted Date Diagnosed Date Resolved Date History of mitral valve prolapse 01/10/2024 01/10/20 24 01/12/2024 Social History Tobacco Use Types Packs/Day Years Used Date Smoking Tobacco: Never Smokeless Tobacco: Never Tobacco Cessation:Counseling Given: Not Answered Alcohol Use Standard Drinks/Week Comments Never 0 (1 standard drink = 0.6 oz pur e alcohol) Interpersonal Safety Answer Date Record ed Family or friends hurt you Not on file 12/21 Family or friends insult you Not on file 11/2023 Family or friends threaten you Not on file 0 12/21/2023 Family or friends scream or curse at you Not on file 12/21/2023 Housing Stability Answer Date Recorded Living situation today Not on file Living situation problems Not on file 2023 Food Insecurity Answer Date Recorded Food run out past 12 months Not on file 11/2023 Food did not last past 12 months Not on file 12/21/2023 Employment Answer Date Recorded Help finding and keeping a job Not on file 0 12/21/2023 Family and Community Support Answer Mitch e Recorded Help with Day to Day Activities Not on file 12/21/2023 Feeling Lonely or Isolated Not on file 12/21 Educational Attainment Answer Date Yousuf rded Speak language other than Citizen Of [place] at home Not on file 12/21/2023 Want help with school or training Not on file 12/21/2023 Depression Answer Date Recorded PHQ-2 Risk Not on file 12/21/2023 Disabilities Answer Date Recorded Difficulty concentrating Not on file 024 Difficulty doing errands alone Not on file 0 12/21/2023 Substance Use Answer Date Recorded Used prescription meds for non-medical reasons N ot on file 12/21/2023 Used illegal drugs past 12 months Not on file 12/21/2023 Comments Unknown Sex and Gender Information Value Date Recorded Sex Assigned at Female 01/11/2024 10:19 AM ENT SURGEON Legal Sex Female 3:20 PM ENT SURGEON Gender Identity Female 01/11/2024 10:19 AM ENT SURGEON Sexual Orientation Straight 01/11/2024 10 :19 AM ENT SURGEON Last Filed Vital Signs Vital Sign Reading Time Taken Comments Blood Pressure 110/78 02/07/2024 10:31 AM EDT Pulse 65 02/07/2024 10:31 AM EDT Temperature - - Respiratory Rate 20 02/07/2024 10:31 AM EDT Oxygen Saturation 94% 02/07/2024 10:31 AM EDT Inhaled Oxygen Concentration - - Weight 63 kg (139 lb) 01/12/2024 10:32 AM EST Height 162.6 cm (5' 4 ) 01/12/2024 10:32 AM EST Body Mass Index 23.86 01/12/2024 10:32 AM EST Plan of Treatment Not on file Insurance BLUE CROSS/BLUE SHIELD Care Teams Heavy Duty Custodian Relationship Specialty Start Date End Date Donna Rosado PA [address] [place] [address] PCP - General Physician Tunneller 12/21/23
--- OUTSIDE RECORDS SUMMARY | 2025-05-14 10:58 | XMS_ITS | Patient Health Record ---
[facility] Address [address] [id number] Care Team Providers Care Land Degradation Analyst Name Role Phone Stevie Etienne Primary Care Provider Donna Rosado Unavailable [phone] Allergies Allergen (clinical drug ingredient) Drug/Non Drug Allergy documented on EMR Reaction Allergy Type Onset Date Status Wheat Dextrin Unknown Drug Allergy Act sandhya dicyclomine Dicyclomine rash/hives Drug Allergy Ac tive Results Component Value Reference Range Notes X ray : Knee, left, include sunrise view Reviewed date:07/25/2024 08:35:08 AM Interpretation: Performing Lab: Notes/Report: Influenza Screen (in house) Reviewed date:12/20/2024 08:55:55 [...] Interpretation:neg Performing Lab: Notes/Report: neg Result: neg Mammogram Reviewed date:05/29/2024 05:13:18 PM Interpretation:Negative, annual f/u Performing Lab: Notes/Report: Negative, annual f/u result Negative, annual f/u Medications Medication SIG (Take, Route, Frequency, Duration) Notes Start Date End Date Status Betamethasone Dipropionate Jun.05 % 1 lidia applied topically 2 times a day 06/14/2022 Active EpiPen 2-Aleksandar 0.3 MG/0.3ML as directed Injection Active Methocarbamol 500 MG 1-2 tab orally tid, prn for 30 day(s) Not-Taking Ubrelvy 100 MG 1 tablet may take second dose at least 2 hours after first dose as needed Orally Once a day for 30 day(s) Active Ajovy 225 MG/1.5ML as directed subcutaneously once a month for 30 days Active OMEPRAZOLE 20 MG 1 P.O. Q DAY *Please review for potential replacement for e-prescription and drug interaction check* Active Escitalopram Oxalate 20 MG 1 tablet Orally Once a day for 90 days Active Aspirin Adult Low Dose 81 MG 1 tab(s) orally once a day Active Atorvastatin Calcium 10 MG Take 1 tablet by mouth once daily for 90 Active busPIRone HCl 10 MG 1 tab(s) [...] review and pick correct strength-formula tion from [employer] options. If intended option is not shown, discontinue and re-order from Quick Search* Active [place] 3 1000 MG PO WITH MEAL Q DAY *Please revie w and pick correct strength-formula tion from [employer] options. If intended option is not shown, discontinue and re-order from Quick Search* Active Immunizations Vaccine Route Administration Date Status Comme nts COVID 19 Moderna Unknown 02/03/2021 Administered COVID 19 Moderna Unknown 03/03/2021 Administered COVID 19 Moderna Unknown 08/18/2021 Administered COVID 19 Moderna Unknown 06/08/2022 Administered Fluzone PF Quad (6-35 months) Unknown 08/04/2017 Administered Fluzone PF Quad (6-35 months) Unknown 08/23/2018 Administered Fluzone PF Quad (6-35 months) Unknown 08/20/2019 Administered Fluzone PF Quad (6-35 months) Unknown 07/24/2020 Administered Fluzone PF Quad (6-35 months) Unknown 08/26/2022 Administered Fluzone Quad (6months&older) Unknown 08/04/2017 Administered Fluzone Quad (6months&older) Unknown 08/20/2019 Administered Fluzone Quad (6months&older) Unknown 07/24/2020 Administered Fluzone Quad (6months&older) IM Intramuscular 08/03/2023 Administered Hepatitis A (adult) Unknown 06/15/2018 Administered Hepatitis A (adult) Unknown 01/18/2019 Administered Hepatitis B (20 and more) Unknown 03/14/1997 Administer ed Hepatitis B (20 and more) Unknown 05/09/1997 Administer ed Hepatitis B (20 and more) Unknown 10/21/1997 Administer ed ppd ID Intradermal 04/15/2020 Administered ppd ID Intradermal 07/06/2022 Administered Shingrix Unknown 02/02/2022 Administered Shingrix Unknown 05/05/2022 Administered tuberculin (ppd) ID Intradermal 04/27/2020 Administered xFluzone (6mos and older)-trivalent IM Intramuscular 08/31/2012 Administered Problems Problem Type SNOMED Code ICD Code Onset Dates Problem Status W/U Status Risk Notes Problem GERD [Gastroesophageal reflux disease] (530.81) Active confirmed Problem 29251955 Vitamin D deficiency (E55.9) Active confirmed Problem Migraine (22715767) Migraine (G43.909) Active c onfirmed Problem Osteopenia (774103004) Osteopenia (M85.80) Active confirmed Problem 61209443820069347 Plantar wart o f left foot (B07.0) Active confirmed Problem 598745200 Depression with anxiety (F41.8) Active confirmed Problem 759325331 Gastroesophageal reflux disease without esophagitis (K21.9) Active confirmed Problem 87870920 Migraine without status migrainosus, not intractable, unspecified migraine type (G43.909) Active confirmed Problem 476784361 Mitral valve prolapse (I34.1) Active confirmed Problem 10108421 Dysphagia, unspecified type (R13.10) Active confirmed Problem 331671047 Balance problems (R26.89) Active confirmed Problem 699021946 Dyslipidemia (E78.5) Active confirmed Problem 79032460510180647 Plantar wart o f both feet (B07.0) Active confirmed Problem 927942670 Seasonal affecti ve disorder (F33.8) Active confirmed Problem 264905686 Social phobia involving fear of public speaking (F40.10) Active confirmed Vital Signs Heart Rate 75 /min 05/14/2025 Blood pressure diastolic 70 mm Hg 05/14/2025 Height 63 in 05/14/2025 Blood pressure systolic 110 mm Hg 05/14/2025 Weight 136.6 lbs 05/14/2025 BMI 24.19 kg/m2 05/14/2025 Encounters Encounter Location Date [facility] [address] [place] [id number] 07/24/2024 Donnadov Rosado Pain, joint, knee, l eft M25.562 [facility] [address] [place] [id number] 12/19/2024 Donnadov Rosado Acute URI J06.9 [facility] [address] [place] [id number] 05/14/2025 Donna Zacheryngoc Dyslipidemia E78.5 ; Vitamin D deficiency E55.9 ; Gastroesophageal reflux disease without esophagitis K21.9 and Dizziness R42 [facility] [address] [place] [id number] 05/29/2024 Donna Crowdy [facility] [address] [place] [id number] 07/25/2024 Donnadov Rosado Assessments Encounter Date Diagnosis (ICD Code) Assessment Notes Treatment Notes Treatment Clinical Notes Section Notes 07/24/2024 Pain, joint, knee, left (ICD-10 - M25.562) 12/19/2024 Acute URI (ICD-10 - J06.9) fluids, rest, supportive measures for fever/symptom relief, has cough medication at home 05/14/2025 Vitamin D deficiency (ICD-10 - E55.9) 05/14/2025 Dyslipidemia (ICD-10 - E78.5) 05/14/2025 Gastroesophageal reflux disease without esophagitis (ICD-10 - K21.9) 05/14/2025 Dizziness (ICD-10 - R42) Plan Of Treatment Pending Test Test Name Order Date H-TSH 05/14/2025 H-CBC 05/14/2025 H-VITAMIN D 05/14/2025 H-Lipid Panel 05/14/2025 H-CMP 05/14/2025 Next Appt Details Provider Name:Donna moss, 05/14/2025 10:00:00 AM, [address], [address], [place], [id number], Insurance Providers Payer Name Payer Address Payer Phone Subscriber Number Group Number Insured Name Patient Relationship to Insured Coverage Start Date Coverage End Date [facility] [address] [place] [address] [id number] PAVAN CARRERA Self - patient is the insured Medical (General) History Medical History History ICD Code Neuro-Cardiac Syncope mitral valve prolapse, Dx: 2004 PFO Surgical History Surgery Date(Month/Year) Hysterectomy 1999 carpal tunnel release rt. hand 12/27 R knee scope 10-28 Hospitalization History Reason Date(Month/Year) see above
--- OUTSIDE RECORDS SUMMARY | 2025-05-14 10:59 | XMS_ITS | Clinical Summary ---
Author Organization [employer] Address [address] [place] [address] Care Team Providers Care Wool Fleece Grader Name Role Phone Donna Rosado Primary Care Provider [phone] Allergies No known active allergies Medications aspirin [...] THREE TIMES DAILY NEEDED 02/08/20 23 Active hpgbyhux-qdqv-hw lic acid (Tab-A-Meliza Multivitamin w-iron) tablet Activ [...] Noted Date Diagnosed Date Family history of [place] (myocardial infarction) Migraines 01/10/2024 01/10/2024 Aspiration of [...] Date Yousuf rded Speak language other than [place] at home Not on file 12/21/2023 Want [...] Sex Assigned at Female 01/11/2024 10:19 AM DERMATOLOGY NURSE PRACTITIONER Legal Sex Female 3:20 PM DERMATOLOGY NURSE PRACTITIONER Gender Identity Female 01/11/2024 10:19 AM DERMATOLOGY NURSE PRACTITIONER Sexual Orientation Straight 01/11/2024 10 :19 AM DERMATOLOGY NURSE PRACTITIONER Last Filed Vital Signs Vital Sign Reading [...] 01/12/2024 10:32 AM EST Plan of Treatment Health Maintenance Due Date Last Done Comments CT Colonography 1970 Colonoscopy 1970 Colorectal Cancer Screening 1970 FOBT/FIT 1970 Fit-DNA (Cologuard) 1970 Sigmoidoscopy 1970 Depression Screening (12+) 1982 HIV Screening 1985 Hepatitis C Screening 1988 Pneumococcal 50+ years (1 of 2 - PCV) 1989 Breast Cancer Screening 2010 Lipid Panel 2015 COVID-19 VACCINE (2023-2 5 season) 2024 10/18/2023, 06/08/2022, 08/18/2021, Additional history exists Tobacco Cessation Counseling and Screening (12+) 01/12/2025 01/12/2024 Influenza Vaccine (Season Ended) 2025 09/19/20 DTAP/TDAP/TD VACCINES (2 - T d or Tdap) 04/05/2031 04/05/2021 Shingles Vaccine (Zoster) Completed 05/05/2022, Insurance BLUE CROSS/BLUE SHIELD Care Teams Wool Fleece Grader Relationship Specialty Start Date End Date Donna Rosado PA [address] [place] [address] PCP - General Physician Link And Link Knitting Machine Operator 12/21/23
[2025-05-14 11:15] LABS: Basophils % 1.1 % (0.1-2.0); Eosinophils # 0.1 Kmm3 (0.0-0.4); Eosinophils % 3.1 % (0.1-12.0); Hematocrit 37.7 % (37.0-47.0); Hemoglobin 12.2 g/dL (12.2-16.2); Immature Granulocytes # 0.01 10^3uL; Immature Granulocytes % 0.3 %; Lymphocytes # 1.1 K/mm3 (0.7-4.5); Lymphocytes % 31.4 % (10-50); Mean Corpuscular HGB Conc 32.4 g/dL (31.8-35.4); Mean Corpuscular Hemoglobin 28.3 pg (27.0-31.2); Mean Corpuscular Volume 87.5 fl (81-99); Mean Platelet Volume 9.8 fl (7.4-10.4); Monocytes # 0.4 K/mm3 (0.1-1.0); Monocytes % 10.5 % (1.7-9.3); Neutrophils # 1.9 K/mm3 (1.8-7.8); Neutrophils % 53.6 % (37.0-80.0); Nucleated Red Blood Cells # 0 10^3/uL; Nucleated Red Blood Cells % 0 %; Platelet Count 293 K/mm3 (142-424); Red Blood Count 4.31 M/mm3 (4.20-5.40); Red Cell Distribution Width 13.1 % (11.5-17.5); Red Cell Distribution Width-SD 42.4 fL; White Blood Count 3.5 K/mm3 (4.8-10.8)
[2025-05-14 11:43] LABS: Albumin Level 4.3 g/dl (3.5-5.0); Chloride 98 mmol/L (98-107); Sodium 139 mmol/L (136-145)
[2025-05-14 11:44] LABS: Potassium 4.6 mmoL/L (3.5-5.1)
[2025-05-14 11:46] LABS: Alanine Aminotransferase 30 U/L (12-78); Albumin/Globulin Ratio 1.7 (1.1-1.8); Alkaline Phosphatase 116 U/L (38-126); Anion Gap 12.6 mEq/L (5-15); Aspartate Amino Transferase 37 U/L (14-36); Bilirubin,Total 0.6 mg/dl (0.2-1.3); Blood Urea Nitrogen 13 mg/dl (7-17); Carbon Dioxide 33 mmol/L (22.0-30.0); Cholesterol 194 mg/dl (140-200); Estimated Glomerular Filt Rate 87 ml/min (>60); GFR (African American) 106 ML/MIN (>60); Globulin 2.6 g/dL (1.3-3.2); Total Protein,Serum 6.9 g/dl (6.3-8.2); Triglycerides 104 mg/dl (30-150); VLDL Cholesterol 21 mg/dL (0-40)
[2025-05-14 11:47] LABS: Calcium 9.4 mg/dl (8.4-10.2); Chol/HDL Ratio 3.5 (1-3.5); Glucose 100 mg/dl (74-100); HDL Cholesterol 55 mg/dl (40-60)
[2025-05-14 11:58] LABS: Direct LDL Cholesterol 93.36 mg/dL (100-129)
[2025-05-14 12:03] LABS: 25-OH Vitamin D, Total 45.1 ng/mL (30-100)
[2025-05-14 12:17] LABS: Thyroid Stimulating Hormone 0.75 uIU/mL (0.465-4.68)
== END 2025-05-14 23:59 | disposition home or self-care (01) ==
LOC: LAB 10:36
PROVIDERS: PCP Physician Assistant; Visit Provider Physician Assistant
DX: E78.5 Hyperlipidemia, unspecified (principal); E55.9 Vitamin D deficiency, unspecified; R42 Dizziness and giddiness
CPT/HCPCS: 36415; 80053; 80061; 82306; 84443; 85025

== ENCOUNTER 2025-06-13 10:10 | Outpatient (CLI) | payer BC, SELFPAY ==
--- OUTSIDE RECORDS SUMMARY | 2024-12-19 10:45 | XMS_ITS ---
Author [facility] Address [address] [facility] [address] [id number] Care Team Providers Care Strapper Name Role Phone Stevie Etienne Primary Care Provider Donna Rosado Unavailable [phone] Allergies Allergen (clinical drug ingredient) Drug/Non Drug [...] review and pick correct strength-formulat ion from [employer] options. If intended option is not shown, discontinue and re-order from Quick Search* Active [place] 3 1000 MG PO WITH MEAL Q DAY *Please revie w and pick correct strength-formulat ion from [employer] options. If intended option is not shown, [...] 12/19/2024 Encounters Encounter Location Date Provider Diagnosis [facility] [address] [facility] [address] [place], [place] [id number] 12/19/2024 Donna Rosado Acute URI J06.9 Assessments [...] prn, Reason: Progress Notes * PAVAN CARRERADOB:1970 (54 yo F)Acc No.[id number]:12/19/2024 Progress Notes Patient: PAVAN RUIZ Provider: RODRI San :1970 A ge:54 Y S ex:Female Date:12/19/2024 Address:[address] [place], [place] [address] Pcp:Stevie Etienne Subjective: * Chief Complaints: * [...] *Please review and pick correct strength-formulation from [employer]i options. If intended option is not shown, discontinue and re-order from Quick Search*, Taking [place] 3 1000 MG PO WITH MEAL Q DAY , Notes to Pharmacist: *Please review and pick correct strength-formulation from [employer] options. If intended option is not shown, [...] * Procedure Codes: 9 4760 [place], [address] CAPILLARY BLOOD DRAW, 97144 CBC WITH AUTO DIFF, 15496 Flu Test- Nasal Swab, Modifiers: QW , 85903 COVID TEST IN HOUSE, Modifiers: QW * Follow Up: p rn * Images: Billing Information: * Visit Code: 25207 Office Visit, Est Pt., Level 3. * Procedure Codes: [address] [place]. [address] CAPILLARY BLOOD DRAW. 96129 CBC WITH AUTO DIFF. 12514 Flu Test- Nasal Swab. Modifiers: QW 20316 COVID TEST IN HOUSE. Modifiers: QW * Electronic signature of RODRI Peacock on 06/13/2025 at 10:13 AM EDT Sign off status: Pending * Provider: RODRI San Date: 0 12/19/2024 Generated for David gaspar/Elvis/Ashish on: 0 06/13/2025 10:13 AM EDT History and Physical Notes * [...]
--- OUTSIDE RECORDS SUMMARY | 2025-05-14 06:00 | XMS_ITS ---
Author Organization [facility] Address 12[address] [facility] [address] [id number] Care Team Providers Care Director Recreation Name Role Phone Stevie Etienne Primary Care Provider [phone] Donna Rosado Unavailable [phone] Allergies Allergen (clinical drug ingredient) Drug/Non Drug [...] review and pick correct strength-formula tion from [employer] options. If intended option is not shown, discontinue and re-order from Quick Search* Active [place] 3 1000 MG PO WITH MEAL Q DAY *Please revie w and pick correct strength-formula tion from [employer] options. If intended option is not shown, discontinue and re-order from Quick Search* Active Problems Problem Type SNOMED Code ICD Code Onset Dates Problem Status W/U Status Risk Notes Problem Hypoglycemia (778664037) Hypoglycemia (E16.2) Active confirmed Vital Signs Blood pressure systolic 110 mm Hg 05/14/20 25 Blood pressure diastolic 70 mm Hg 025 Heart Rate 75 /min 05/14/2025 Height 63 in 05/14/2025 Weight 136.6 lbs 05/14/2025 BMI 24.19 kg/m2 05/14/2025 Encounters Encounter Location Date Provider Diagnosis [facility] [address] [place], [place] [id number] 05/14/2025 Donna Rosado Dizziness R42 ; Hypoglycemia [...] rt test results, Reason: Progress Notes * PAVAN CARRERADOB:1970 (54 yo F)Acc No.[id number]:05/14/2025 Progress Notes Patient: PAVAN RUIZ Provider: RODRI San :1970 A ge:54 Y S ex:Female Date:05/14/2025 Address:[address] [place], [place] [phone] Pcp:Stevie Etienne Subjective: * Chief Complaints: * [...] *Please review and pick correct strength-formulation from [employer] options. If intended option is not shown, discontinue and re-order from Quick Search*, Taking [place] 3 1000 MG PO WITH MEAL Q DAY , Notes to Pharmacist: *Please review and pick correct strength-formulation from Star[employer]pan options. If intended option is not shown, [...] * Images: Billing Information: * Visit Code: 58213 Office Visit, Est Pt., Level 4. * Procedure Codes: 1036F TOBACCO NON-USER. G8420 BMI<30 AND >=22 CALC & DOCU. G8783 BP SCR PRFRM RCMDD DEFIND SCR INTVL. G8752 MOST RECENT SYSTOLIC BP < 140MM HG. G8754 MOST RECENT DIASTOLIC BP < 90MM HG. * Electronic signature of RODRI Peacock on 06/13/2025 at 10:12 AM EDT Sign off status: Pending * Provider: RODRI San Date: 05/14/2025 Generated for Halliei ng/Fabenitezg/eTransmitting on: 06/13/2025 10:12 AM EDT History and Physical Notes * Examination Category [...]
--- OUTSIDE RECORDS SUMMARY | 2025-06-09 09:06 | XMS_ITS ---
Author Organization [facility] Address [address] [facility] [address] [place] [id number] Care Team Providers Care Centrifugal Spinner Name Role Phone Stevie Etienne Primary Care Provider [phone] REASON FOR VISIT Message Encounters Encounter Location Date Provider Diagnosis [facility] 36 [facility] [address] [place] [id number] 06/09/2025 Stevie Etienne Leukopenia, unspecif ied type D72.819 and Elevated liver enzymes R74.8 Assessments Encounter Date Diagnosis (ICD Code) Assessment Notes Treatment Notes Treatment Clinical Notes Section Notes 06/09/2025 Leukopenia, unspecified type (ICD-10 - D72.819) 06/09/2025 Elevated liver enzymes (ICD-10 - R74.8) Plan Of Treatment Pending Test Test Name Order Date H-CBC 06/09/2025 H-CMP 06/09/2025 Progress Notes * PAVAN CARRERADOB:1970 (54 yo F)Acc No.[id number]:06/09/2025 Patient: PAVAN RUIZ :1970 A ge:54 Y S ex:Female Address:[address] [place] [address] Subjective: * Chief Complaints: * M essage [...] * true * Date: Generated for David gaspar/Elvis/Janeenitting on: 0 06/13/2025 10:12 AM EDT
--- OUTSIDE RECORDS SUMMARY | 2025-06-13 10:12 | XMS_ITS | Clinical Summary ---
Author Organization [facility] Address [address] [place] [address] Care Team Providers Care Stucco Worker Name Role Phone Donna Rosado Primary Care Provider [phone] Bob Heredia MD Unavailable [phone] Allergies Active Allergy Reactions Criticality Noted Date [...] 1 (one) time each day. Active Multiple Vitamins-Woody als (MULTIVITAMINS /MINERALS ADULT PO) Take 1 [...] History Relation Name Comments Fainting Maternal Grandmother [place] Cardiac disorder Mother Diabetes Mother Heart attack [...] - PCV) 2020 [facility]-Depression Screening 04/05/2024 04/05/2023 [id number] Vaccine (6 - 2023- season) 2024 10/18/2023, 06/08/2022, 08/18/2021, Additional history exists [facility]-Influenza Vaccine (#1) 07/21/202508/26, 07/24/2020, 08/20/2019, Additional history exists [facility]-DTaP,Tdap,and Td [...] patient's age to complete this topic Insurance [facility] Care Teams Stucco Worker Relationship Specialty Start Date End Date Donna Rosado PA [address] [place] [address] PCP - General 02/24/23 Bob Heredia MD [address] [place] [address] Consulting Physician Neurology 12/12/23
--- OUTSIDE RECORDS SUMMARY | 2025-06-13 10:13 | XMS_ITS | Patient Health Record ---
Author Organization [facility] Address [address] [facility] [address] [id number] Care Team Providers Care Paid Search Analyst Name Role Phone Stevie Etienne Primary Care Provider Donna Rosado Unavailable [phone] Allergies Allergen (clinical drug ingredient) Drug/Non Drug [...] Interpretation:neg Performing Lab: Notes/Report: neg Result: neg H-TSH Reviewed date:05/15/2025 09:54:19 AM Interpretation: Performing [...] AGRATIO 1.7 1.1-1.8 ALP 116 38-126 U/L X ray : Knee, left, include sunrise view Reviewed date:07/25/2024 08:35:08 AM Interpretation: Performing Lab: Notes/Report: Medications Medication SIG (Take, Route, Frequency, Duration) Notes Start Date End Date Status Betamethasone Dipropionate Aug 0.05 % 1 lidia applied topically 2 times a day 06/14/2022 Active EpiPen 2-Aleksandar 0.3 MG/0.3ML as directed Injection Active Methocarbamol 500 MG 1-2 tab orally tid, prn; Duration: 30 day(s) Not-Taking Ubrelvy 100 MG 1 tablet may take second dose at least 2 hours after first dose as needed Orally Once a day; Duration: 30 day(s) Active Ajovy 225 MG/1.5ML as directed subcutaneously once a month; Duration: 30 days Active OMEPRAZOLE 20 MG 1 P.O. Q DAY *Please review for potential replacement for e-prescription and drug interaction check* Active Escitalopram Oxalate 20 MG 1 tablet Orally Once a day; Duration: 90 days Active Aspirin Adult Low Dose [...] review and pick correct strength-formula tion from [employer] options. If intended option is not shown, discontinue and re-order from Quick Search* Active Quinhagak 3 1000 MG PO WITH MEAL Q DAY *Please revie w and pick correct strength-formula tion from [employer] options. If intended option is not shown, discontinue and re-order from Quick Search* Active Atorvastatin Calcium 10 MG Take 1 tablet by mouth once daily; Duration: 90 Active Immunizations Vaccine Route Administration Date Status [...] Problem Status W/U Status Risk Notes Problem Gastroesophageal reflux disease (disorder) (269887203) GERD [Gastroesophageal reflux disease] (530.81) Active confirmed Problem Vitamin D deficiency (51230630) Vitamin D deficiency (E55.9) Active confirmed Problem Migraine (04667390) Migraine (G43.909) Active c onfirmed Problem Hypoglycemia (041601213) Hypoglycemia (E16.2) Active confirmed Problem Osteopenia (347990183) Osteopenia (M85.80) Active confirmed Problem Plantar wart of left foot (99678076501452543) Plantar wart of left foot (B07.0) Active confirmed Problem Mixed anxiety and depressive disorder (260684686) Depression with anxiety (F41.8) Active confirmed Problem Gastroesophageal reflux disease without esophagitis (389937124) Gastroesophageal reflux disease without esophagitis (K21.9) Active confirmed Problem Migraine (32844447) Migraine wit hout status migrainosus, not intractable, unspecified migraine type (G43.909) Active confirmed Problem Mitral valve prolapse (414942874) Mitral valve prolapse (I34.1) Active confirmed Problem Dysphagia (54830307) Dysphagia, unspecified type (R13.10) Active confirmed Problem Problem with balance (133627169) Balance problems (R26.89) Active confirmed Problem Dyslipidemia (764681713) Dyslipidemia (E78.5) Active confirmed Problem Leukopenia (29874873) Leukopenia, unspecified type (D72.819) Active confirmed Problem Plantar wart of both feet (16295521385122319) Plantar wart of both feet (B07.0) Active confirmed Problem Seasonal affective disorder (842404948) Seasonal affective disorder (F33.8) Active confirmed Problem Social phobia (34572025) Social phobia involving fear of public speaking (F40.10) Active confirmed Vital Signs Heart Rate 75 /min 05/14/2025 Blood pressure diastolic 70 mm Hg 05/14/2025 Height 63 in 05/14/2025 Blood pressure systolic 110 mm Hg 05/14/2025 Weight 136.6 lbs 05/14/2025 BMI 24.19 kg/m2 05/14/2025 Encounters Encounter Location Date Provider Diagnosis [facility] [address] [place] [facility] [address] T[place] [id number] 07/24/2024 Donna Rosado Pain, joint, knee, l eft M25.562 [facility] [address] [place] [facility] [address] T[place] [id number] 12/19/2024 Donna Rosado Acute URI J06.9 [facility] [address] [place], [place] [id number] 05/14/2025 Donna Rosado Dizziness R42 ; Hypoglycemia E16.2 ; Dyslipidemia E78.5 ; Vitamin D deficiency E55.9 and Gastroesophageal reflux disease without esophagitis K21.9 [facility] [address] [place], [place] [id number] 06/02/2025 [place] [facility] [address] [place], [place] [id number] 07/25/2024 Donna Rosado [facility] [address] [place], [place] [id number] 05/15/2025 Donna Rosado [facility] [address] [place], [place] [id number] 06/09/2025 Stevie [place] Leukopenia, unspecif ied type D72.819 and Elevated liver enzymes R74.8 Assessments Encounter Date Diagnosis (ICD Code) Assessment Notes Treatment Notes Treatment Clinical Notes Section Notes 07/24/2024 Pain, joint, knee, left (ICD-10 - M25.562) 12/19/2024 Acute URI (ICD-10 - J06.9) fluids, rest, supportive measures for fever/symptom relief, has cough medication at home 05/14/2025 Dizziness (ICD-10 - R42) h 05/14/2025 Hypoglycemia (ICD-10 - E16.2) Patient's near syncopal episode was made better by eating. She thinks her glucose is dropping. We discuss diet and making sure to eat 3 meals along with snacks in between that contain protein. Will check labs. She may need a glucose tolerance test. h 06/09/2025 Leukopenia, unspecified type (ICD-10 - D72.819) 05/14/2025 Dyslipidemia (ICD-10 - E78.5) h 06/09/2025 Elevated liver enzymes (ICD-10 - R74.8) 05/14/2025 Vitamin D deficiency (ICD-10 - E55.9) h 05/14/2025 Gastroesophageal reflux disease without esophagitis (ICD-10 - K21.9) h Plan Of Treatment Pending Test Test Name Order Date H-CBC 06/09/2025 H-CMP 06/09/2025 Insurance Providers Payer Name Payer Address Payer Phone Subscriber Number Group Number Insured Name Patient Relationship to Insured Coverage Start Date Coverage End Date JIE HILGER [employer] [address] [place] [address] [id number] PAVAN CARRERA Self - patient is the insured Medical (General) History Medical History History ICD Code Neuro-Cardiac Syncope mitral valve prolapse, Dx: 2004 PFO Surgical History Surgery Date(Month/Year) Hysterectomy 1999 carpal tunnel release rt. hand 12/27 R knee scope 10-28 Hospitalization History Reason Date(Month/Year) see above
--- OUTSIDE RECORDS SUMMARY | 2025-06-13 10:13 | XMS_ITS | Data Portability ---
Author Organization [facility] Address [address] [facility] [address] [place] [address] Care Team Providers Care Locker Attendant Name Role Phone GÓMEZ DOZIER Primary Care Provider ANGÉLICA ESTEVES Equipment Maintenance Tech [phone] Assessment Encounter Date Assessment Date Assessment LastModified by Organization Details LastModified Time 09/03/2019 09/03/2019 09/25/17 vit B12 1025 <-- 02/01/17 B12 364, 09/25/17 vit D 34 <-- 02/01/17 vit D 27 02/01/17 ALEXANDR 1:160 fine-coarse speckled TSH wnl [email or web address] Not available 09/03/2019 14:34:54 01/13/2021 01/13/2021 09/25/17 vit B12 1025 <-- 02/01/17 B12 364, 09/25/17 vit D 34 <-- 02/01/17 vit D 27 02/01/17 ALEXANDR 1:160 fine-coarse speckled TSH wnl [email or web address] Not available 01/13/2021 10:02:02 05/02/2022 05/02/2022 Assessment: [...] 225 mg/1.5 mL subcutaneo us 2020 021 [facility], [address], [place], [address], 08:17:14 rizatripta n 10 mg disintegra ting tablet 2020 021 [facility], [address], [place], [address], 10:59:50 Ajovy Syringe 225 mg/1.5 mL subcutaneo us 2018 019 [facility], [address], [place], [address], 9 17:20:09 rizatripta n 10 mg disintegra ting tablet 2018 019 [facility], [address], [address], [place], [address], 9 17:20:13 Patient TargetsNo targets recorded. Patient Instructions Encounter Date Encounter Id Patient Instructions Last Modified By Organization Details Last Modified Time 09/03/2019 [id number] Migraine: - continue Ajovy - recommend trial [...] aspirin 81 mg daily with food - Maxalt-BIOMEDICAL EQUIPMENT TECHNICIAN at onset migraine -- Can repeat [...] - goal level vit D25-OH is 50-70. [email or web address] Not available 09/03/2019 17:18:55 01/13/2021 [id number] Migraine: - continue Ajovy - recommend trial [...] aspirin 81 mg daily with food - Maxalt-BIOMEDICAL EQUIPMENT TECHNICIAN at onset migraine -- Can repeat [...] - goal level vit D25-OH is 50-70. [email or web address] Not available 01/13/2021 10:02:02 01/11/2022 [id number] yo new pt her e today [...] for us to get her imaging from [facility]. RTC PRN Not available 01/11/2022 13:38:36 05/02/2022 [id number] __60_ minutes wa s spent on this [...] 44 NG/mL >=30 NG/mL normal Not Available [facility] [address], [place], [address], 01/09/2020 10:50:13 Result Notes None recorded. Problems Name Problem SNOMED Code Status Onset Date Resolution Date Notes Provider Name and Address Organization Details Recorded Time Headache disorder 392810980 Active 2015 From Automated Load;Provi jamshid: Jeanne Ocampo;Stat us: Active Not Available [facility] 7 06:09:28 Recurrent painful ophthalmo plegic neuropath y 14545330 Active 2015 From Automated Load;Provi jamshid: Jeanne Ocampo;Stat us: Active Not Available [facility] 7 06:09:28 Refractor y migraine without aura 669267005 Active 2015 From Automated Load;Provi jamshid: Jeanne Ocampo;Stat us: Active Not Available [facility] 7 07:39:26 Problem Notes None recorded. Procedures Surgical History Date Name Laterality Status Provider Name and Address Organization Details Recorded Time 10/20/20 21 Date of Last Mammogram completed [facility] 04/27/2022 16:27:41 11/20/19 10 Knee arthroscopy/surg terrence completed [facility] 04/27/2022 16:26:36 11/20/19 07 Carpal tunnel surgery completed [facility] 04/27/2022 16:26:52 11/20/19 00 Hysterectomy completed [facility] 04/27/2022 16:26:06 Imaging Results None recorded. Procedure [...] Available Not Available No t Available Joint Moqom active Not Available Not Available Not Available [...] Updated DateTime 01/11/2022 162.56 cm 23.5 kg/m2 51175.15 g Ricci Shah [facility] 01/11/2022 12:59:27 Date Recorded Body height Body mass index (BMI) Body weight Heart rate Systolic And Diastolic Provider Name and Address Organization Details Last Updated DateTime 01/13/2021 162.56 cm 25.2 kg/m2 69525.08 g 74 /min 110/78 mm[Hg] [facility] 10:00:14 Date Recorded Body height Body mass index (BMI) Body weight Body temperature Heart rate Respiratory rate Systolic And Diastolic Provider Name and Address Organization Details Last Updated DateTime 2 162.56 cm 23.5 kg/m2 46658.1 5 g 98 [degF] 70 /min 18 /min 118/76 mm[Hg] Dorota Soria [facility] 2 08:52:07 Date Recorded Body height Body mass index (BMI) Body weight Heart rate Systolic And Diastolic Provider Name and Address Organization Details Last Updated DateTime 09/03/2019 162.56 cm 21.1 kg/m2 29665.86 g 74 /min 112/80 mm[Hg] [facility] 9 13:51:58 Social History Question Answer Notes LastModified by Organizat ion Details LastModified Time Tobacco Smoking Status Never [facility] 11/07/2016 13:26:06 How Many Years Have You [...] 11/07/2016 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 [email or web address] Information not available 11/07/2016 Mental Status None [...] or Skin Cancer Medical History Condition Response Coronary Artery Disease N Blood Transfusion Y COPD N Stroke N Crohn's Disease N Kidney Disease N Migraines Y Asthma N Thyroid Disease N Breast Cancer N Breast Problem Y Liver Disease N Heart Attack (TN) N Diabetes N Ovarian Cancer N Congestive Heart Failure (CHF) N Eczema N Diverticulitis N Heart Disease N Hypertension N Gynecological History Statement/Question Response # of [...] SNOMED-CT Code Diagnosis ICD10 Code Diagnosis Note [id number] JEANNE OCAMPO MD NEUROLOGY [facility] [address] [place] [address] 02/01/2017 09:12:46 02/01/2017 10:11:29 Refractory migraine without aura 881038419 G43.711 no longer refractory since starting Topamax but still with about 2 migraines per month and 1 headache per week. 40 minute office visit with > 50% in counseling CC: RODRI Pozo and Gómez Dozier MD Ophthalmic migraine 9565 5001 G43.B0 ophthalmic migraine, rare complicate d migraine (unilatera l numbness), migraine with aura ASA dailydrink plenty of water, stay hydrated lowest dose possibly of estrogen and off as soon as feasible per [facility]/PCP; counseled on concerns for increased vascular risk in pt with complicate d migraine (numbness one side), and migraine with aura, particular on estrogen; Fatigue 63204643 R53.83 On Nexium. May not be absorbing nutrients, increased risk of dementia. Will check TSH vitamin D and B12 levels Muscle fasciculation 824 96790 R25.3 involuntar y muscle twitches in L thumb and abdomen- will check magnesium, TSH, ALEXANDR Migraine w ithout aura, not refractory 597238608 G43.009 Migraine with aura, complicate d migraine. No known FH. Pt on estrogen. No PMH miscarriag e or blood clots other than previous menstrual cycles with heavy clotting. - Will check ALEXANDR and TSH - Continue ASA 81mg - Continue Topamax 25 mg qd, increase to bid after 3 d - Take Zofran at onset of migraine +/- Maxalt-BIOMEDICAL EQUIPMENT TECHNICIAN if migraine builds. -- Can repeat Maxalt after 2 hours but do not exceed more than 2 a day - Continue MVI - Start B12 and vitamin D - RTC 6 months Dizziness 136486874 R42 new problem, effecting balance but no vertigo; sounds to be vestibular , but mild and no signs on exam; denies sinus congestion ; + PND, rhinorrhea ; cannot exclude inflammato ry- will check ALEXANDR, B12, TSH- pt counseled regarding potential causes - low threshold for MRI brain if symptoms worsen [id number] JEANNE OCAMPO MD NEUROLOGY [facility] [address] [place] [address] 09/25/2017 13:49:46 09/25/2017 14:55:50 Migraine without aura, not refractory 808295406 G43.009 Migraine with aura, complicate d migraine. [...] Take Zofran at onset of migraine +/- Maxalt-BIOMEDICAL EQUIPMENT TECHNICIAN if migraine builds. -- Can repeat [...] and off as soon as feasible per [facility]/PCP; counseled on concerns for increased vascular risk in pt with complicate d migraine (numbness one side), and migraine with aura, particular ly on estrogen Dizziness 742691423 R42 improvemen t in dizziness; effecting balance [...] for MRI brain if symptoms worsen Fatigue 03216078 R53.83 Found to have low B12 on 02/01/17 now supplement ing daily w/ 1500 mcg SL form. On Nexium. May not be absorbing nutrients, increased risk of dementia.- continue vitamin supplement s- repeat vit B12 and vit D levels CC: Gómez Dozier MD Vitamin D deficiency 347 37064 E55.9 02/01/17 Vitamin D 27 --> 34Pt was rx 50,000 units weekly and is now supplement ing 2000 iu daily-Will repeat levels today. Seasonal allergy 4950249 04 J30.2 -Continue Flonase- [facility] Sinus Rinse w/distille d water and Zyrtec daily. [id number] JEANNE OCAMPO MD NEUROLOGY [facility] [address] [place] [address] 10/16/2018 13:37:27 10/16/2018 15:30:37 Recurrent painful ophthalmoplegic neuropathy 00520941 G43.B0 Migraine w ithout aura, not refractory 989226413 G43.009 Migraine with aura, complicate d migraine. [...] use at work- Continue ASA 81 mg- Maxalt-BIOMEDICAL EQUIPMENT TECHNICIAN at onset migraine-- Can repeat Maxalt [...] and off as soon as feasible per [facility]/PCP; counseled on concerns for increased vascular risk in pt with complicate d migraine (numbness one side), and migraine with aura, particular ly on estrogen Fatigue 28800123 R53.83 Found to have low B12 on [...] lmic migraine pts. Vitamin D deficiency 347 68340 E55.9 02/01/17 Vitamin D 27 --> 09/2017 34Pt was rx 50,000 units weekly and is now supplement ing 2000 iu daily-Will repeat levels today. Dizziness 016210626 R42 improvemen t in dizziness; effecting balance [...] if symptoms worsen High antibody titer 4417 17922 R76.0 ALEXANDR 1:160 - will repeat [id number] JEANNE OCAMPO MD NEUROLOGY [facility] [address] [place] [address] 10/18/2018 09:42:52 10/18/2018 10:31:01 [id number] JEANNE OCAMPO MD NEUROLOGY [facility] [address] [place] [address] 09/03/2019 13:45:44 09/03/2019 14:53:00 Recurrent painful ophthalmoplegic neuropathy 51879077 G43.B0 Migraine w ithout aura, not refractory 812856860 G43.009 Migraine with aura, complicate d migraine. [...] use at work- Continue ASA 81 mg- Maxalt-BIOMEDICAL EQUIPMENT TECHNICIAN at onset migraine-- Can repeat Maxalt [...] and off as soon as feasible per [facility]/PCP; counseled on concerns for increased vascular risk in pt with complicate d migraine (numbness one side), and migraine with aura, particular ly on estrogen High antibody titer 4417 06165 R76.0 ALEXANDR 1:160 (02/01/17) --> negative (10/16/18) Vitamin D deficiency 347 96258 E55.9 02/01/17 Vitamin D 27 --> 09/2017 [...] goal level vit D25-OH is 50-70. Dizziness 024660438 R42 improvemen t in dizziness; effecting balance [...] threshold for MRI brain if symptoms worsen [id number] JEANNE OCAMPO MD [facility] [address] [place] [address] 01/08/2020 11:46:09 01/08/2020 15:47:11 [id number] JEANNE OCAMPO MD NEUROLOGY [facility] [address] [place] [address] 01/13/2021 09:29:08 01/13/2021 11:02:03 Recurrent painful ophthalmoplegic neuropathy 89085656 G43.B0 Migraine w ithout aura, not refractory 906892760 G43.009 Migraine with aura, complicate d migraine. [...] use at work- Continue ASA 81 mg- Maxalt-BIOMEDICAL EQUIPMENT TECHNICIAN at onset migraine-- Can repeat Maxalt [...] and off as soon as feasible per [facility]/PCP; counseled on concerns for increased vascular risk in pt with complicate d migraine (numbness one side), and migraine with aura, particular ly on estrogen High antibody titer 4417 96453 R76.0 ALEXANDR 1:160 (02/01/17) --> negative (10/16/18) Vitamin D deficiency 347 62351 E55.9 02/01/17 Vitamin D 27 --> 09/2017 [...] goal level vit D25-OH is 50-70. Dizziness 039017840 R42 improvemen t in dizziness; effecting balance [...] PCP: RODRI Pozo and Gómez Dozier MD [id number] RODRI KIRK-C [facility] [address] [place] [address] 01/11/2022 12:12:21 01/11/2022 13:39:08 Pain of breast 58571626 N64.4 [id number] TEE ROJO MD BREAST SURGERY [facility] [address] [place] [address] 05/02/2022 08:49:07 05/03/2022 09:21:01 Pain of breast 26594233 N64.4 Health Concerns Section Related Observation LastModified by Organization Detai ls LastModified Time None Recorded Concern Status LastModified by Organization Details LastModified Time None Recorded Advance Directives Directive None Recorded Payers Insurance Date Sequence Insurance Name Policy Number Policy Giron Covered Member ID Giron Member ID Guarantor Name 05/02/2022 1 [place] [id number] R Cesar Liao [id number] Cesar Liao 01/13/2021 1 [employer] [id number] Cesar S Liao [id number] Cesar Liao Notes Date Note Type Note Provider Name and Address Organization Details Recorded Time 09/03/2019 text/html 1 yr f/u migraine Cesar is doing so much better since [...] she is not working. JEANNE OCAMPO MD [address] [place] [address], [address], [facility] 09/03/2019 17:19:48 01/13/2021 text/html 1 yr f/u migraine Cesar is doing so much better since she started Ajovy. It seems to wear off at about 3 weeks, then she typically has only about 1 migraine that week before the injections. It's not bad, pretty easily treated with Maxalt-BIOMEDICAL EQUIPMENT TECHNICIAN. No Zofran needed. She gave it [...] joint or bone pains. JEANNE OCAMPO MD [address] [place] [address], [address], [facility] 01/13/2021 10:59:34 01/11/2022 text/html ROS as noted in the HPI Years ago she started having some left sided breast painHad a mammogram in Oct 2021 and a breast ultrasound last week [facility] a [facility] [...] Had her mammogram and then went to [facility] for pap in Oct and at that [...] to go away ANGÉLICA ESTEVES PA-C [address] [place], [address], [facility] 01/11/2022 13:38:44 05/02/2022 text/html Cesar Liao [...] personal history of malignancy. TEE ROJO MD [address] [place], [address], [facility] 05/02/2022 13:21:36 OBGyn Episode Ob Episode Information Episode Created Date Number of Fetuses Patient Bloodtype Patient rh Status Prepregnancy Weight lbs Domestic Partner Domestic Partner Phone Father Name Sprayer Insecticide Status 04/27/20 22 1 CLOSED Fetus Data [...]
--- OUTSIDE RECORDS SUMMARY | 2025-06-13 10:13 | XMS_ITS | Clinical Summary ---
Author Organization [facility] Address [address] [place] [address] Phone [email or web address] Care Team Providers Care Interactive Art Director Name Role Phone No, Provider Primary Care Provider Unavailabl e Allergies Active Allergy Reactions Criticality Noted Date Comments No Known Drug Allergy 09/20/2019 Other Vibramycin Medications aspirin 81 MG tablet Take 1 tablet by mouth daily. Active cyanocobalamin (VITAMIN B-12) 100 MCG tablet Take 1 tablet by mouth daily. Active busPIRone (BUSPAR) 10 MG tablet Take 2 tablets by mouth twice a day. 8 Active estradiol (CLIMARA) 0.06 MG/24HR Inject 1 patch as directed 1 (one) time per week. Active rizatriptan BRAKE TESTER (MAXALT-BRAKE TESTER) 10 MG dispersible tablet Take 1 tablet by mouth 1 (one) time each day if needed. 8 Active topiramate (TOPAMAX) 25 MG tablet Take 1 tablet by mouth every 12 hours. Active Fremanezumab-vf rm (AJOVY) 225 MG/1.5ML solution prefilled syringe Ajovy 225 mg/1.5 mL subcutaneous syringe Active Biotin 10 MG capsule 1 capsule daily. Act sandhya TURMERIC PO turmeric (bulk) Ac tive Multiple Vitamins-Minera ls (VITAMIN D3 COMPLETE PO) 1 capsule daily. Active Krill Oil 350 MG capsule krill oil 350 mg-om-3 90 mg-dha 24 mg-epa 50 mg-phospholipids capsule Take by oral route. Active Coenzyme Q10 (CO Q-10 PO) Co Q-10 Active calcium carbonate-vitam in D (OSCAL-500) 500-200 MG-UNIT per tablet Take 1 tablet by mouth 1 (one) time each day. Active ergocalciferol (VITAMIN D-2) 1.25 MG (21048 UT) capsuleIndicati ons:No longer on high dose taking 2,000 Take by mouth 1 (one) time per week. Active Active Problems Problem Noted Date Diagnosed Date Chronic migraine without aura 06/11/2018 Gastroparesis 06/11/2018 Resolved Problems Problem Noted Date Diagnosed Date Resolved Date Urinary tract infection 08/06/201005/21 Overview (04/18/2018): Pain in joint involving other specified sites 08/31/2006/11/2018 Overview (04/18/2018): Follow-up examination, follo wing other surgery 05/30/2008 06/11/2018 Overview (04/18/2018): Other examination of ears and hearing 05/20/2008 06/11/2018 Overview (04/18/2018): Acute lymphadenitis 03/18/2008 06/11/20 18 Overview (04/18/2018): Carpal tunnel syndrome 11/07/200706/11 Overview (04/18/2018): Family History Medical History Relation Name Comments Diabetes Brother Hypertension Brother Hypertension Father Relation Name Status Comments Brother Father Social History Tobacco Use Types Packs/Day Years Used Date Smoking Tobacco: Never Smokeless Tobacco: Never Alcohol Use Standard Drinks/Week Comments No 0 (1 standard drink = 0.6 oz pur e alcohol) Intimate Partner Violence Answer Date R ecorded Insults You Not on file 03/03/2021 Threatens You Not on file 03/03/2021 Screams at You Not on file 03/03/2021 Physically Hurt Not on file 03/03/2021 Intimate Partner Violence Score Not on file 03/03/2021 Depression Answer Date Recorded PHQ-9 Total Score 0 10/07/2019 Stress Answer Date Recorded Stress in your Life Not on file 09/23/2024 Dealing with Stress 3 09/23/2024 Comments No Sex and Gender Information Value Date Recorded Sex Assigned at Not on file Legal Sex Female 9:28 AM CDT Gender Identity Not on file Sexual Orientation Not on file 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 file Not on file Not on file Last Filed Vital Signs Vital Sign Reading Time Taken Comments Blood Pressure 120/78 01/27/2020 8:03 AM EDT Pulse 64 01/27/2020 8:03 AM EDT Temperature 36.6 C (97.8 F) 01/27/2020 8:03 AM EDT Respiratory Rate 14 10/07/2019 9:56 AM EST Oxygen Saturation 99% 01/27/2020 8:03 AM EDT Inhaled Oxygen Concentration - - Weight 56 kg (123 lb 6.4 oz) 05/27/2019 1:24 PM EDT Height 162.6 cm (5' 4 ) 05/27/2019 1:24 PM EDT Body Mass Index 21.18 05/27/2019 1:24 PM EDT Plan of Treatment Health Maintenance Due Date Last Done Comments Dental Cleaning/Exam 1970 HIV Screening 1970 Hepatitis C Screening 1970 Cervical Cancer Screening 1986 Hep B Infection Screening - Triple Screen 1988 Hepatitis B Immunization (1 of 3 - 19+ 3-dose series) 1989 Tetanus Diphtheria and Pertu ssis Immunization (1 - Tdap) 1989 Breast Cancer Screening 2000 Colorectal Cancer Screening 2000 Annual Preventive Exam 06/11/2019 06/11/2018 Zoster Immunization (1 of 2) 2020 Covid-19 Immunization (1 - 2 25 season) 2024 Influenza Immunization (#1) 2025 HIB Immunization Aged Out No longer e ligible based on patient's age to complete this topic HPV Immunization Aged Out No longer e ligible based on patient's age to complete this topic Hepatitis A Immunization Aged Out No longer eligible based on patient's age to complete this topic Pneumococcal: Ped (0 to 5 Yr s) and At-Risk Member (6 to 64 Yrs) Aged Out No longer e ligible based on patient's age to complete this topic Polio Immunization Aged Out No longer eligible based on patient's age to complete this topic Insurance NICK IN COPAY 5 Care Teams Interactive Art Director Relationship Specialty Start Date End Date No, Provider [place] PCP - General Family Medicine 09/30/19
--- OUTSIDE RECORDS SUMMARY | 2025-06-13 10:14 | XMS_ITS | Clinical Summary ---
Author Organization [facility] ([place], [place], [place], [place]) Address [address] [place] [address] Care Team Providers Care Timber Management Specialist Name Role Phone Donna Rosado Primary Care Provider [phone] Allergies No known active allergies Medications aspirin [...] THREE TIMES DAILY NEEDED 02/08/20 23 Active llmhuytk-nifq-lt lic acid (Tab-A-Meliza Multivitamin w-iron) tablet Activ e omeprazole (PriLOSEC) 40 MG capsule omeprazole 40 mg capsule,delayed release TAKE 1 CAPSULE BY MOUTH IN THE MORNING FOR 30 DAYS Active ubrogepant (Ubrelvy) 100 mg Tab Take 100 mg by mouth. 02/08/20 Active furosemide (LASIX) 20 MG tabletIndication s:Orthopnea Take 1 tablet (20 mg total) by mouth 2 (two) times daily. 60 tablet 01/12/20 24 Active Active Problems Problem Noted Date Diagnosed Date Family history of [place] (myocardial infarction) Migraines 01/10/2024 01/10/2024 Aspiration of [...] drink = 0.6 oz pur e alcohol) Food Insecurity Answer Date Recorded Food run [...] Date Yousuf rded Speak language other than Singaporean at home Not on file 12/21/2023 Want help with school or training Not on file 12/21/2023 Substance Use Answer Date Recorded Used prescription meds for non-medical reasons N ot on file 12/21/2023 Used illegal drugs past 12 months Not on file 12/21/2023 Comments Unknown Sex and Gender Information Value Date Recorded Sex Assigned at Female 01/11/2024 10:19 AM UNDERWRITING ANALYST Legal Sex Female 3:20 PM UNDERWRITING ANALYST Gender Identity Female 01/11/2024 10:19 AM UNDERWRITING ANALYST Sexual Orientation Straight 01/11/2024 10 :19 AM UNDERWRITING ANALYST Last Filed Vital Signs Vital Sign Reading [...] Screening 2010 Lipid Panel 2015 COVID-19 VACCINE (6 - 2023-2 5 season) 2024 10/18/2023, 06/08/2022, 08/18/2021, Additional history exists Tobacco Cessation Counseling and Screening (12+) 01/12/2025 01/12/2024 Influenza Vaccine (#1) 2025 09/19/2023 DTAP/TDAP/TD VACCINES (2 - T d or Tdap) 04/05/2031 04/05/2021 Shingles Vaccine (Zoster) Completed 05/05/2022, Insurance BLUE CROSS/BLUE SHIELD Care Teams Timber Management Specialist Relationship Specialty Start Date End Date Donna Rosado PA [address] [place] [address] PCP - General Physician C[employer] 12/21/23
[2025-06-13 10:25] LABS: Hematocrit 36.6 % (37.0-47.0); Hemoglobin 11.9 g/dL (12.2-16.2); Immature Granulocytes % 0.3 %; Mean Corpuscular HGB Conc 32.5 g/dL (31.8-35.4); Mean Corpuscular Hemoglobin 28.7 pg (27.0-31.2); Mean Corpuscular Volume 88.4 fl (81-99); Nucleated Red Blood Cells % 0 %; Platelet Count 271 K/mm3 (142-424); Red Blood Count 4.14 M/mm3 (4.20-5.40); Red Cell Distribution Width-SD 42.5 fL; White Blood Count 3.9 K/mm3 (4.8-10.8)
[2025-06-13 10:56] LABS: Albumin Level 3.4 g/dl (3.5-5.0); Chloride 101 mmol/L (98-107); Potassium 4.2 mmoL/L (3.5-5.1); Sodium 137 mmol/L (136-145)
[2025-06-13 10:59] LABS: Alanine Aminotransferase 24 U/L (12-78); Albumin/Globulin Ratio 1.1 (1.1-1.8); Alkaline Phosphatase 93 U/L (38-126); Anion Gap 9.2 mEq/L (5-15); Aspartate Amino Transferase 33 U/L (14-36); Bilirubin,Total 0.5 mg/dl (0.2-1.3); Blood Urea Nitrogen 14 mg/dl (7-17); Calcium 9.2 mg/dl (8.4-10.2); Carbon Dioxide 31 mmol/L (22.0-30.0); Creatinine,Serum 0.60 mg/dl (0.52-1.04); Estimated Glomerular Filt Rate 104 ml/min (>60); GFR (African American) 126 ML/MIN (>60); Globulin 3.1 g/dL (1.3-3.2); Glucose 94 mg/dl (74-100); Total Protein,Serum 6.5 g/dl (6.3-8.2)
== END 2025-06-13 23:59 | disposition home or self-care (01) ==
LOC: LAB 10:11
PROVIDERS: PCP Physician Assistant; Visit Provider Family Medicine
DX: R74.8 Abnormal levels of other serum enzymes (principal); D72.819 Decreased white blood cell count, unspecified
CPT/HCPCS: 36415; 80053; 85025

== ENCOUNTER 2025-06-23 07:02 | Outpatient (CLI) | payer BC, SELFPAY ==
--- OUTSIDE RECORDS SUMMARY | 2025-05-14 06:00 | XMS_ITS ---
Author Organization [facility] Address [address] [facility] [address] [id number] Care Team Providers Care Hand Counter Name Role Phone Stevie Etienne Primary Care Provider [phone] Donna Rosado Unavailable [phone] Allergies Allergen (clinical drug ingredient) Drug/Non Drug [...] review and pick correct strength-formula tion from [employer] options. If intended option is not shown, discontinue and re-order from Quick Search* Active [place] 3 1000 MG PO WITH MEAL Q DAY *Please revie w and pick correct strength-formula tion from [employer] options. If intended option is not shown, discontinue and re-order from Quick Search* Active Problems Problem Type SNOMED Code ICD Code Onset Dates Problem Status W/U Status Risk Notes Problem Hypoglycemia (E16.2) Active confirmed Vital Signs Weight 136.6 lbs 05/14/2025 Blood pressure systolic 110 mm Hg 05/14/20 25 Blood pressure diastolic 70 mm Hg 025 Heart Rate 75 /min 05/14/2025 Height 63 in 05/14/2025 BMI 24.19 kg/m2 05/14/2025 Encounters Encounter Location Date Provider Diagnosis [facility] [address] [place], [place] [id number] 05/14/2025 Donna Rosado Dizziness R42 ; Hypoglycemia [...] rt test results, Reason: Progress Notes * DEANDRE STANISLAWDOB:1970 (55 yo F)Acc No.[id number]:05/14/2025 Progress Notes Patient: PAVAN RUIZ Provider: RODRI San :1970 A ge:54 Y S ex:Female Date:05/14/2025 Address:[address] [place], [place] [address] Pcp:Stevie Etienne Subjective: * Chief Complaints: * [...] *Please review and pick correct strength-formulation from [employer] options. If intended option is not shown, discontinue and re-order from Quick Search*, Taking [place] 3 1000 MG PO WITH MEAL Q DAY , Notes to Pharmacist: *Please review and pick correct strength-formulation from [employer] options. If intended option is not shown, [...] GFR 87 >60 - ml/min * G RSUSEL 100 74-100 - mg/dl * C A [...] * Images: Billing Information: * Visit Code: 16336 Office Visit, Est Pt., Level 4. * Procedure Codes: 1036F TOBACCO NON-USER. G8420 BMI<30 AND >=22 CALC & DOCU. G8783 BP SCR PRFRM RCMDD DEFIND SCR INTVL. G8752 MOST RECENT SYSTOLIC BP < 140MM HG. G8754 MOST RECENT DIASTOLIC BP < 90MM HG. * Electronic signature of RODRI Peacock on 06/23/2025 at 07:05 AM EDT Sign off status: Pending * Provider: RODRI San Date: 0 05/14/2025 Generated for David gaspar/Elvis/eTransmitting on: 06/23/2025 07:05 AM EDT History and Physical Notes * [...]
--- OUTSIDE RECORDS SUMMARY | 2025-06-09 09:06 | XMS_ITS ---
[facility] [address] [id number] Care Team Providers Care Mussel Opener Name Role Phone Stevie Etienne Primary Care Provider Results Component Value Reference Range Notes H-CBC Reviewed date:06/13/2025 03:52:48 PM Interpretation: Performing Lab: Notes/Report: WBC 3.9 4.8-10.8 K/mm3 RBC 4.14 4.20-5.40 M/mm3 HGB 11.9 12.2-16.2 g/dL HCT 36.6 37.0-47.0 % MCV 88.4 81-99 fl MCH 28.7 27.0-31.2 pg MCHC 32.5 31.8-35.4 g/dL RDW-SD 42.5 RDW 13.1 11.5-17.5 % PLT 271 142-424 K/mm3 MPV 9.6 7.4-10.4 fl NE% 56.1 37.0-80.0 % LY% 30.6 10-50 % MO% 9.1 1.7-9.3 % EO% 2.9 0.1-12.0 % BA% 1.0 0.1-2.0 % NRBC% 0 IG% 0.3 NE# 2.2 1.8-7.8 K/mm3 LY# 1.2 0.7-4.5 K/mm3 MO# 0.4 0.1-1.0 K/mm3 EO# 0.1 0.0-0.4 Kmm3 BA# 0.0 0-0.2 K/mm3 NRBC# 0 IG# 0.01 H-CMP Reviewed date:06/13/2025 03:52:40 PM Interpretation: Performing Lab: Notes/Report: NA 137 136-145 mmol/L K 4.2 3.5-5.1 mmoL/L CL 101 98-107 mmol/L CO2 31 22.0-30.0 mmol/L GAP 9.2 5-15 mEq/L BUN 14 7-17 mg/dl CREATT 0.60 0.52-1.04 mg/dl GFRAA 126 >60 ML/MIN EGFR 104 >60 ml/min GLU 94 74-100 mg/dl CA 9.2 8.4-10.2 mg/dl BILIT 0.5 0.2-1.3 mg/dl AST 33 14-36 U/L ALT 24 12-78 U/L TP 6.5 6.3-8.2 g/dl ALB 3.4 3.5-5.0 g/dl GLOB 3.1 1.3-3.2 g/dL AGRATIO 1.1 1.1-1.8 ALP 93 38-126 U/L REASON FOR VISIT Message Encounters Encounter Location Date Provider Diagnosis [facility] [address] [id number] 06/09/2025 Stevie Etienne Leukopenia, unspecif ied type D72.819 and Elevated liver enzymes R74.8 Assessments Encounter Date Diagnosis (ICD Code) Assessment Notes Treatment Notes Treatment Clinical Notes Section Notes 06/09/2025 Leukopenia, unspecified type (ICD-10 - D72.819) 06/09/2025 Elevated liver enzymes (ICD-10 - R74.8) Plan Of Treatment No Information Progress Notes * PAVAN CARRERADOB:1970 (54 yo F)Acc No.[id number]:06/09/2025 Patient: PAVAN RUZI :1970 A ge:54 Y S ex:Female Address:[address] [place], [place] [id number] Subjective: * Chief Complaints: * M essage * Medical History: * Surgical History: * Hospitalization/Major Diagno stic Procedure: * Medications: Objective: * Vitals: * Physical Examination: Assessment: * Assessment: 1. L eukopenia, unspecified type - D72.819 2 . E levated liver enzymes - R74.8 Plan: * Treatment: 2. E levated liver enzymes L AB: H-CMP * Procedure Codes: * true * Date: Generated for David gaspar/Elvis/Ashish on: 0 06/23/2025 07:05 AM EDT
--- OUTSIDE RECORDS SUMMARY | 2025-06-13 11:51 | XMS_ITS ---
Author Organization [facility] Address [address] [facility] [address] [place] [id number] Care Team Providers Care Chassis Driver Name Role Phone Stevie Etienne Primary Care Provider [phone] Donna Alvarez Unavailable [phone] REASON FOR VISIT Test Results Encounters Encounter Location Date Provider Diagnosis [facility] [address] [place] [id number] 06/13/2025 Donna Rosado Vitamin D deficiency E55.9 and Iron deficiency anemia D50.9 Assessments Encounter Date Diagnosis (ICD Code) Assessment Notes Treatment Notes Treatment Clinical Notes Section Notes 06/13/2025 Vitamin D deficiency (ICD-10 - E55.9) 06/13/2025 Iron deficiency anemia (ICD-10 - D50.9) Plan Of Treatment Pending Test Test Name Order Date H-VITAMIN D 06/13/2025 H-Folate 06/13/2025 H-VITAMIN B12 06/13/2025 H-Retic count 06/13/2025 H-Ferritin 06/13/2025 H-Iron 06/13/2025 Progress Notes * PAVAN CARRERADOB:1970 (54 yo F)Acc No.[id number]:06/13/2025 Patient: PAVAN RUIZ :1970 A ge:54 Y S ex:Female Address:[address] [place] [address] Subjective: * Chief Complaints: * T est Results * Medical History: * Surgical History: * Hospitalization/Major Diagno stic Procedure: * Medications: Objective: * Vitals: * Physical Examination: Assessment: * Assessment: 1. V itamin D deficiency - E55.9 2 . I ray deficiency anemia - D50.9 ? Plan: * Treatment: 2. I ray deficiency anemia L AB: H-Folate L AB: H-VITAMIN B12 L AB: H-Retic count L AB: H-Ferritin L AB: H-Iron * Procedure Codes: * true * Date: Generated for David gaspar/Elvis/Ashish on: 0 06/23/2025 07:05 AM EDT
--- OUTSIDE RECORDS SUMMARY | 2025-06-23 07:05 | XMS_ITS | Clinical Summary ---
Author Organization [facility] Address [address] [place] [address] Care Team Providers Care Sales Lead Name Role Phone Donna Rosado Primary Care Provider [phone] Bob Heredia MD Unavailable [phone] Allergies Active Allergy Reactions Criticality Noted Date [...] 1 (one) time each day. Active Multiple Vitamins-[place] als (MULTIVITAMINS /MINERALS ADULT PO) Take 1 [...] History Relation Name Comments Fainting Maternal Grandmother Michelle Cardiac disorder Mother Diabetes Mother Heart attack Mother Hypertension Mother Stroke Paternal Grandmother Rocio Relation Name Status Comments Maternal Grandmother [place] Mother Paternal Grandmother Rocio Social History Tobacco [...] [facility]-HIV Screening 1970 [facility]-Hepatitis C Screening 1970 [facility]-/Child/Adol SDOH Screenings 1970 [facility]- SDOH Screenings 1988 [facility]-Adult SDOH Screenings 1988 CT Colonography 2015 Colonoscopy 2015 FIT-DNA 2015 FIT 2015 FOBT 2015 Sigmoidoscopy 2015 [facility]-Colorectal Cancer Screening 2015 [facility]-Breast Cancer Screening 2020 [facility]-Pneumococcal Vaccine: 50+ Years (1 of 1 - PCV) 2020 [facility]-Depression Screening 04/05/2024 04/05/2023 FEM-BETOC-85 Vaccine (6 - 2023- season) 2024 10/18/2023, [...] patient's age to complete this topic Insurance [facility] Care Teams Sales Lead Relationship Specialty Start Date End Date Donna Rosado PA [address] [place] [address] PCP - General 02/24/23 Bob Heredia MD [address] [place] [address] Consulting Physician Neurology 12/12/23
--- OUTSIDE RECORDS SUMMARY | 2025-06-23 07:06 | XMS_ITS | Referral Summary ---
Author Organization [employer] ([place], [place], [place], [place]) Address [address] [place] [address] Care Team Providers Care Glove Presser Name Role Phone Donna Rosado Primary Care Provider [phone] Allergies No known active allergies Medications aspirin [...] THREE TIMES DAILY NEEDED 02/08/20 23 Active vdcncuwc-wskl-vu lic acid (Tab-A-Meliza Multivitamin w-iron) tablet Activ [...] Noted Date Diagnosed Date Family history of [place] (myocardial infarction) Migraines 01/10/2024 01/10/2024 Aspiration of [...] Date Yousuf rded Speak language other than Angolan at home Not on file 12/21/2023 Want help with school or training Not on file 12/21/2023 Substance Use Answer Date Recorded Used prescription meds for non-medical reasons N ot on file 12/21/2023 Used illegal drugs past 12 months Not on file 12/21/2023 Comments Unknown Sex and Gender Information Value Date Recorded Sex Assigned at Female 01/11/2024 10:19 AM EDITOR SOUND Legal Sex Female 3:20 PM EDITOR SOUND Gender Identity Female 01/11/2024 10:19 AM EDITOR SOUND Sexual Orientation Straight 01/11/2024 10 :19 AM EDITOR SOUND Last Filed Vital Signs Vital Sign Reading [...] file Insurance BLUE CROSS/BLUE SHIELD Care Teams Glove Presser Relationship Specialty Start Date End Date Donna Rosado PA [address] [place] [address] PCP - General Physician Agricultural Extension Specialist 12/21/23
--- OUTSIDE RECORDS SUMMARY | 2025-06-23 07:06 | XMS_ITS | Clinical Summary ---
Author Organization [employer] ([place], [place], [place], [place]) Address [address] [place] [address] Care Team Providers Care Chef Under Name Role Phone Donna Rosado Primary Care [...] THREE TIMES DAILY NEEDED 02/08/20 23 Active plygcypu-vdxj-jt lic acid (Tab-A-Meliza Multivitamin w-iron) tablet Activ [...] Noted Date Diagnosed Date Family history of [place] (myocardial infarction) Migraines 01/10/2024 01/10/2024 Aspiration of [...] Date Yousuf rded Speak language other than Micronesian at home Not on file 12/21/2023 Want help with school or training Not on file 12/21/2023 Substance Use Answer Date Recorded Used prescription meds for non-medical reasons N ot on file 12/21/2023 Used illegal drugs past 12 months Not on file 12/21/2023 Comments Unknown Sex and Gender Information Value Date Recorded Sex Assigned at Female 01/11/2024 10:19 AM YARN EXAMINER Legal Sex Female 3:20 PM YARN EXAMINER Gender Identity Female 01/11/2024 10:19 AM YARN EXAMINER Sexual Orientation Straight 01/11/2024 10 :19 AM YARN EXAMINER Last Filed Vital Signs Vital Sign Reading [...] 05/05/2022, Insurance BLUE CROSS/BLUE SHIELD Care Teams Chef Under Relationship Specialty Start Date End Date Donna Rosado PA [address] [place] [address] PCP - General Physician Survey Instrument Operator 12/21/23
--- OUTSIDE RECORDS SUMMARY | 2025-06-23 07:06 | XMS_ITS | Patient Health Record ---
Author Organization [facility] Address [address] [place] [facility] [address] [id number] Care Team Providers Care Composing Room Machinist Apprentice Name Role Phone Stevie Etienne Primary Care Provider [phone] Donna Rosado Unavailable [phone] Allergies Allergen (clinical drug ingredient) Drug/Non Drug [...] AGRATIO 1.7 1.1-1.8 ALP 116 38-126 U/L H-CBC Reviewed date:06/13/2025 03:52:48 PM Interpretation: Performing [...] AGRATIO 1.1 1.1-1.8 ALP 93 38-126 U/L X ray : Knee, left, [...] Interpretation:neg Performing Lab: Notes/Report: neg Result: neg Medications Medication SIG (Take, Route, Frequency, Duration) [...] review and pick correct strength-formula tion from [employer] options. If intended option is not shown, discontinue and re-order from Quick Search* Active Wellton 3 1000 MG PO WITH MEAL Q DAY *Please revie w and pick correct strength-formula tion from [employer] options. If intended option is not shown, discontinue and re-order from Quick Search* Active Atorvastatin Calcium 10 MG Take 1 tablet by mouth once daily; Duration: 90 Active Immunizations Vaccine Route Administration Date Status Comme nts xFluzone (6mos and older)-trivalent IM Intramuscular 08/31/2012 Administered tuberculin (ppd) ID Intradermal 04/27/2020 Administered Shingrix Unknown 02/02/2022 Administered Shingrix Unknown 05/05/2022 Administered ppd ID Intradermal 04/15/2020 Administered ppd ID Intradermal 07/06/2022 Administered Hepatitis B (20 and more) Unknown 03/14/1997 Administer ed Hepatitis B (20 and more) Unknown 05/09/1997 Administer ed Hepatitis B (20 and more) Unknown 10/21/1997 Administer ed Hepatitis A (adult) Unknown 06/15/2018 Administered Hepatitis A (adult) Unknown 01/18/2019 Administered Fluzone Quad (6months&older) Unknown 08/04/2017 Administered Fluzone Quad (6months&older) Unknown 08/20/2019 Administered Fluzone Quad (6months&older) Unknown 07/24/2020 Administered Fluzone Quad (6months&older) IM Intramuscular 08/03/2023 Administered Fluzone PF Quad (6-35 months) Unknown 08/04/2017 Administered Fluzone PF Quad (6-35 months) Unknown 08/23/2018 Administered Fluzone PF Quad (6-35 months) Unknown 08/20/2019 Administered Fluzone PF Quad (6-35 months) Unknown 07/24/2020 Administered Fluzone PF Quad (6-35 months) Unknown 08/26/2022 Administered COVID 19 Moderna Unknown 02/03/2021 Administered COVID 19 Moderna Unknown 03/03/2021 Administered COVID 19 Moderna Unknown 08/18/2021 Administered COVID 19 Moderna Unknown 06/08/2022 Administered Problems Problem Type SNOMED Code ICD Code Onset Dates Problem Status W/U Status Risk Notes Problem Gastroesophageal reflux disease (disorder) (946623434) GERD [Gastroesophageal reflux disease] (530.81) Active confirmed Problem Vitamin D deficiency (94229891) Vitamin D deficiency (E55.9) Active confirmed Problem Migraine (77396426) Migraine (G43.909) Active c onfirmed Problem Hypoglycemia (338637427) Hypoglycemia (E16.2) Active confirmed Problem Osteopenia (113104721) Osteopenia (M85.80) Active confirmed Problem Iron deficiency anemia (79036495) Iron deficiency anemia (D50.9) Active confirmed Problem Plantar wart of left foot (10914549999430545) Plantar wart of left foot (B07.0) Active confirmed Problem Mixed anxiety and depressive disorder (938986705) Depression with anxiety (F41.8) Active confirmed Problem Gastroesophageal reflux disease without esophagitis (420070997) Gastroesophageal reflux disease without esophagitis (K21.9) Active confirmed Problem Migraine (99504633) Migraine wit hout status migrainosus, not intractable, unspecified migraine type (G43.909) Active confirmed Problem Mitral valve prolapse (827580541) Mitral valve prolapse (I34.1) Active confirmed Problem Dysphagia (43894140) Dysphagia, unspecified type (R13.10) Active confirmed Problem Problem with balance (574689834) Balance problems (R26.89) Active confirmed Problem Dyslipidemia (972926574) Dyslipidemia (E78.5) Active confirmed Problem Leukopenia (58439769) Leukopenia, unspecified type (D72.819) Active confirmed Problem Plantar wart of both feet (43014739654960688) Plantar wart of both feet (B07.0) Active confirmed Problem Seasonal affective disorder (767670291) Seasonal affective disorder (F33.8) Active confirmed Problem Social phobia (06828332) Social phobia involving fear of public speaking (F40.10) Active confirmed Vital Signs Heart Rate 75 /min 05/14/2025 Blood pressure diastolic 70 mm Hg 05/14/2025 Height 63 in 05/14/2025 Blood pressure systolic 110 mm Hg 05/14/2025 Weight 136.6 lbs 05/14/2025 BMI 24.19 kg/m2 05/14/2025 Encounters Encounter Location Date Provider Diagnosis [facility] [address] [place] [id number] 07/24/2024 Donna Rosado Pain, joint, knee, l eft M25.562 [facility] [address] [place], [place] [id number] 12/19/2024 Donnadov Rosado Acute URI J06.9 [facility] [address] [place], [place] [id number] 05/14/2025 Donna Ashlee Dizziness R42 ; Hypoglycemia E16.2 ; Dyslipidemia E78.5 ; Vitamin D deficiency E55.9 and Gastroesophageal reflux disease without esophagitis K21.9 [facility] [address] [facility] [address] [place], [place] [id number] 07/25/2024 [facility] [address] [place], [place] [id number] 05/15/2025 [facility] [address] [facility] [address] [place], [place] [id number] 06/02/2025 Stevie [place] [facility] [address] [place], [place] [id number] 06/09/2025 Stevie [place] Leukopenia, unspecif ied type D72.819 and Elevated liver enzymes R74.8 [facility] [address] [place], [place] [id number] 06/13/2025 Donna Ashlee Vitamin D deficiency E55.9 and Iron deficiency anemia D50.9 Assessments Encounter Date Diagnosis (ICD Code) Assessment Notes Treatment Notes Treatment Clinical Notes Section Notes 06/09/2025 Leukopenia, unspecified type (ICD-10 - D72.819) 12/19/2024 Acute URI (ICD-10 - J06.9) fluids, rest, supportive measures for fever/symptom relief, has cough medication at home 06/13/2025 Vitamin D deficiency (ICD-10 - E55.9) 07/24/2024 Pain, joint, knee, left (ICD-10 - M25.562) 05/14/2025 Dizziness (ICD-10 - R42) h 05/14/2025 Hypoglycemia (ICD-10 - E16.2) Patient's near syncopal episode was made better by eating. She thinks her glucose is dropping. We discuss diet and making sure to eat 3 meals along with snacks in between that contain protein. Will check labs. She may need a glucose tolerance test. h 06/13/2025 Iron deficiency anemia (ICD-10 - D50.9) 06/09/2025 Elevated liver enzymes (ICD-10 - R74.8) 05/14/2025 Dyslipidemia (ICD-10 - E78.5) h 05/14/2025 Vitamin D deficiency (ICD-10 - E55.9) h 05/14/2025 Gastroesophageal reflux disease without esophagitis (ICD-10 - K21.9) h Plan Of Treatment Pending Test Test Name Order Date H-VITAMIN D 06/13/2025 H-Folate 06/13/2025 H-VITAMIN B12 06/13/2025 H-Retic count 06/13/2025 H-Ferritin 06/13/2025 H-Iron 06/13/2025 Insurance Providers Payer Name Payer Address Payer Phone Subscriber Number Group Number Insured Name Patient Relationship to Insured Coverage Start Date Coverage End Date [facility] [employer] [address] [place] [address] [id number] PAVAN CARRERA Self - patient is the insured Medical (General) History Medical History History ICD Code Neuro-Cardiac Syncope mitral valve prolapse, Dx: 2004 PFO Surgical History Surgery Date(Month/Year) Hysterectomy 1999 carpal tunnel release rt. hand 12/27 R knee scope 10-28 Hospitalization History Reason Date(Month/Year) see above
--- OUTSIDE RECORDS SUMMARY | 2025-06-23 07:06 | XMS_ITS | Clinical Summary ---
Author Organization [facility] Address [address] [place] [address] Phone [email or web address] Care Team Providers Care Chemical Dependency Counselor Name Role Phone No, Provider Primary Care [...] 1 (one) time per week. Active rizatriptan FINANCIAL CONTROLLER (MAXALT-FINANCIAL CONTROLLER) 10 MG dispersible tablet Take 1 tablet [...] day. Active ergocalciferol (VITAMIN D-2) 1.25 MG (38820 UT) capsuleIndicati ons:No longer on high dose [...] Date Last Done Comments CT Colonography 1970 Cervical Cancer Screening Combo 1970 Colonoscopy 1970 Colorectal Cancer Screening Combo 1970 DNA Cologuard 1970 Dental Cleaning/Exam 1970 FIT or FOBT Test 1970 HIV Screening 1970 HPV / Cotest 1970 Hepatitis C Screening 1970 Pap Testing 1970 Sigmoidoscopy 1970 Hep B Infection Screening - Triple Screen 1988 Hepatitis B Immunization (1 of 3 - 19+ 3-dose series) 1989 Tetanus Diphtheria and Pertu ssis Immunization (1 - Tdap) 1989 Breast Cancer Screening 2000 Annual Preventive Exam 06/11/2019 [...] patient's age to complete this topic Insurance [employer] [address] [place] [id number] [place] [address] Care Teams Chemical Dependency Counselor Relationship Specialty Start Date End Date No, Provider CANDE Garcia PCP - General Family Medicine 09/30/19
[2025-06-23 07:51] LABS: Reticulocyte % (Auto) 1.5 % (0.9-3.2)
[2025-06-23 08:36] LABS: Iron 77 ug/dL (37-170)
[2025-06-23 09:12] LABS: Ferritin 23.9 ng/ml (11.1-264)
[2025-06-23 11:16] LABS: 25-OH Vitamin D, Total 33.3 ng/mL (30-100)
[2025-06-23 11:46] LABS: Vitamin B12 867 pg/mL (239-931)
[2025-06-23 13:46] LABS: Folate 2.77 ng/mL
== END 2025-06-23 23:59 | disposition home or self-care (01) ==
LOC: LAB 07:03
PROVIDERS: PCP Physician Assistant; Visit Provider Physician Assistant
DX: D50.9 Iron deficiency anemia, unspecified (principal); E55.9 Vitamin D deficiency, unspecified
CPT/HCPCS: 36415; 82306; 82607; 82728; 82746; 83540; 85044

== ENCOUNTER 2025-08-14 12:55 | Outpatient (CLI) | payer BC, SELFPAY ==
--- NOTE | 2025-08-14 12:57 | MM_ITS ---
PROCEDURE INFORMATION: Exam: MG Bilateral Screening 3D Mammography Exam date and time: 08/14/2025 2:02 PM Age: 55 years old Clinical indication: Screening examination. TECHNIQUE: Imaging protocol: Bilateral Screening tomosynthesis and 2D mammography including computer-aided detection (CAD) when performed. COMPARISON: 1. MG MM DIG SCREENING MAMM BI W/CAD 05/20/2024 9:33 AM 2. MG MM DIG SCREENING MAMM BI W/CAD 02/07/2023 7:53 AM FINDINGS: MAMMOGRAPHY: Breast composition: The breasts are heterogeneously dense, which may obscure small masses. Mass: None. Architectural distortion: None. Calcifications: No suspicious calcifications. Asymmetric density: None. Skin thickening: None. Axillary adenopathy: None. IMPRESSION: No mammographic evidence of malignancy. Annual screening is recommended unless otherwise clinically indicated. ASSESSMENT: BI-RADS Category 1: Negative.
== END 2025-08-14 23:59 | disposition home or self-care (01) ==
LOC: RAD 12:55
PROVIDERS: PCP Physician Assistant; Visit Provider Obstetrics & Gynecology
DX: Z12.31 Encounter for screening mammogram for malignant neoplasm of breast (principal); R92.333 Mammographic heterogeneous density, bilateral breasts
CPT/HCPCS: 77063; 77067

== ENCOUNTER 2025-10-10 06:45 | Outpatient (CLI) | payer BC, SELFPAY ==
--- OUTSIDE RECORDS SUMMARY | 2024-05-03 05:15 | XMS_ITS ---
[facility] [address] [facility] [address] [id number] Care Team Providers Care [employer] Name Role Phone Stevie Etienne Primary Care Provider Donna Rosado Unavailable [phone] Allergies Allergen (clinical drug ingredient) Drug/Non Drug Allergy documented on EMR Reaction Allergy Type Onset Date Status dicyclomine Dicyclomine rash/hives Drug Allergy Ac tive REASON FOR VISIT discuss depression issues Medications Medication SIG (Take, Route, Frequency, Duration) Notes Start Date End Date Status Bactrim DS 800-160 MG 1 tab(s) orally every 12 hours; Duration: 5 day(s) 08/02/2021 Not-Taking Medrol 4 MG as directed orally 12/16/2022 Not-Taking Medrol 4 MG as directed orally daily; Duration: 6 days 10/22/2021 Not-Taking Ajovy 225 MG/1.5ML as directed subcutaneously once a month; Duration: 30 days Active Propranolol HCl 20 MG 1 tab(s) 1-2 hour prior to presentation orally 06/14/2022 Not-Taking Betamethasone Dipropionate Aug 0.05 % 1 lidia applied topically 2 times a day 06/14/2022 Active Rizatriptan Benzoate 10 MG 1 tab(s) orally once a day as needed Not-Taking Methocarbamol 500 MG 1-2 tab orally tid, prn; Duration: 30 day(s) Active Atorvastatin Calcium 10 MG Take 1 tablet by mouth once daily; Duration: 30 Active Escitalopram Oxalate 20 MG 1 tablet Orally Once a day; Duration: 30 day(s) 05/03/2024 Active DOMPERIDONE 10MG 1 ORAL QID *Please review for potential replacement for e-prescription and drug interaction check* Active Vitamin B-12 1000 MCG 1 HANG SUBLINGUALLY ONCE A DAY *Please review and pick correct strength-formula tion from [employer] options. If intended option is not shown, discontinue and re-order from Quick Search* Active Vitamin D3 50 MCG (2000 UT) 1 tab(s) orally once a day Active Buffalo 3 1000 MG PO WITH MEAL Q DAY *Please revie w and pick correct strength-formula tion from [employer] options. If intended option is not shown, discontinue and re-order from Quick Search* Active busPIRone HCl 10 MG 1 tab(s) orally 1 time a day Active Multiple Vitamin - 1 cap(s) orally once a day Active OMEPRAZOLE 20 MG 1 P.O. Q DAY *Please review for potential replacement for e-prescription and drug interaction check* Active Aspirin Adult Low Dose 81 MG 1 tab(s) orally once a day Active Problems Problem Type SNOMED Code ICD Code Onset Dates Problem Status W/U Status Risk Notes Problem Mixed anxiety and depressive disorder (361824503) Depression with anxiety (F41.8) Active confirmed Vital Signs Blood pressure systolic 106 mm Hg 05/03/20 24 Blood pressure diastolic 68 mm Hg 024 Heart Rate 80 /min 05/03/2024 Height 63 in 05/03/2024 Weight 141.8 lbs 05/03/2024 BMI 25.12 kg/m2 05/03/2024 Encounters Encounter Location Date Provider Diagnosis [facility] [address] [place] [id number] 05/03/2024 Donna Rosado Depression with anxi ety F41.8 Assessments Encounter Date Diagnosis (ICD Code) Assessment Notes Treatment Notes Treatment Clinical Notes Section Notes 05/03/2024 Depression with anxiety (ICD-10 - F41.8) The citalopram worked when she first started it but she is now taking 2 of the 20mg and does not notice much of a difference. Will switch to lexapro. Plan Of Treatment Medication Medication Name Sig Start Date Stop Date Notes Citalopram Hydrobromide 20 MG 1 tab(s) orally once a day 0 12/31/2021 Escitalopram Oxalate 20 MG 1 tablet Oral ly Once a day; Duration: 30 day(s) 05/03/2024 Treatment Notes Assessment Notes Depression with anxiety The citalopram w orked when she first started it but she is now taking 2 of the 20mg and does not notice much of a difference. Will switch to lexapro. Next Appt Details Follow Up: 3 Weeks, Reason: Progress Notes * PAVAN CARRERADOB:1970 (55 yo F)Acc No.[id number]:05/03/2024 Progress Notes Patient: PAVAN RUIZ Provider: RODRI San :1970 A ge:53 Y S ex:Female Date:05/03/2024 Address:[address] [place], [place] [id number] Pcp:Stevie Etienne Subjective: * Chief Complaints: * 1 . Discuss depression issues. * HPI: P sychology: 53 year old female presents with c/o depression P t presents today with c/o worsening depression. Pt sts that she does not feel that the Citalopram is working.? * ROS: A LLERGY: no C ough. n o R unny nose. G ASTROENTEROLOGY: no V omiting. n o D iarrhea. U ROLOGY: no D ifficulty urinating. n o B lood in urine. * Medical History: N euro-Cardiac Syncope, mitral valve prolapse, Dx: 2004, PFO. * Surgical History: H ysterectomy 1999, carpal tunnel release rt. hand 12/27, R knee scope 10-28. * Hospitalization/Major Diagno stic Procedure: s ee above . * Family History: F ather: alive, hypertension, diabetes. M other: , Had heart attack and . * Social History: C URRENT TOBACCO USE S moking Status: Patient does NOT smoke. C affeine: yes, frequency: 1pop daily. Marital Status: Single. Past smoking status: no. Alcohol: No. * Medications: T aking OMEPRAZOLE 20 MG 1 P.O. Q DAY , Notes to Pharmacist: *Please review for potential replacement for e-prescription and drug interaction check*, Taking Aspirin Adult Low Dose 81 MG Tablet Delayed Release 1 tab(s) orally once a day , Taking busPIRone HCl 10 MG Tablet 1 tab(s) orally 1 time a day , Taking Multiple Vitamin - Capsule 1 cap(s) orally once a day , Taking Vitamin D3 50 MCG (2000 UT) Tablet 1 tab(s) orally once a day , Taking DOMPERIDONE 10MG 1 ORAL QID , Notes to Pharmacist: *Please review for potential replacement for e-prescription and drug interaction check*, Taking Vitamin B-12 1000 MCG LOZENGE 1 HANG SUBLINGUALLY ONCE A DAY , Notes to Pharmacist: *Please review and pick correct strength-formulation from [employer] options. If intended option is not shown, discontinue and re-order from Quick Search*, Taking Buffalo 3 1000 MG PO WITH MEAL Q DAY , Notes to Pharmacist: *Please review and pick correct strength-formulation from [employer] options. If intended option is not shown, discontinue and re-order from Quick Search*, Taking Betamethasone Dipropionate Aug 0.05 % Cream 1 lidia applied topically 2 times a day , Taking Citalopram Hydrobromide 20 MG Tablet 1 tab(s) orally once a day , Taking Methocarbamol 500 MG Tablet 1-2 tab orally tid, prn , Taking Atorvastatin Calcium 10 MG Tablet Take 1 tablet by mouth once daily , Taking Ajovy 225 MG/1.5ML Solution Auto-injector as directed subcutaneously once a month , Not-Taking Rizatriptan Benzoate 10 MG Tablet Disintegrating 1 tab(s) orally once a day as needed , Not-Taking Propranolol HCl 20 MG Tablet 1 tab(s) 1-2 hour prior to presentation orally , Not-Taking Medrol 4 MG Tablet Therapy Pack as directed orally , Not- Taking Medrol 4 MG Tablet Therapy Pack as directed orally daily , Not-Taking Bactrim DS 800-160 MG Tablet 1 tab(s) orally every 12 hours , Medication List reviewed and reconciled with the patient * Allergies: D icyclomine: rash/hives. Objective: * Vitals: W t:141.8, Temp:98.7, BP:106/68, HR:80, O2 Sat:97% on rA, Nurse:LATOYA, Ht: 63, BMI:25.12. * Examination: P sychology: General Appearance: N AD. G rooming : a dequate.?Eye contact : n ormal. M ood : p leasant. H eart: R SR. L ungs: c lear to auscultation. N eurologic Exam: I ntact, gait normal. Assessment: * Assessment: 1. D epression with anxiety - F41.8 (Primary) Plan: * Treatment: * Procedure Codes: 9 4760 PULSE OX * Follow Up: 3 Weeks * Images: Billing Information: * Visit Code: 22383 Office Visit, Est Pt., Level 3. * Procedure Codes: 92383 PULSE OX. * Electronic signature of RODRI Peacock on 10/10/2025 at 06:49 AM EST Sign off status: Pending * Provider: RODRI San Date: 0 05/03/2024 Generated for David gaspar/Elvis/eTransmitting on: 1 12/10/2024 06:49 AM EST History and Physical Notes * HPI (History of Present Illness) Category Sub-Category Detail Notes Category Not es Psychology depression Pt presents toda y with c/o worsening depression. Pt sts that she does not feel that the Citalopram is working Examination Category Sub-Category Detail Notes Category Not es Psychology Heart: RSR Lungs: clear to auscultatio n General Appearance: NAD Neurologic Exam: Intact, gait normal Grooming : adequate Eye contact : normal Mood : pleasant
--- OUTSIDE RECORDS SUMMARY | 2024-07-24 05:30 | XMS_ITS ---
Author Organization [facility] Address [address] [facility] [address] [id number] Care Team Providers Care Hall Worker Name Role Phone Stevie Etienne Primary Care Provider Donna Rosado Unavailable [phone] Allergies Allergen (clinical drug ingredient) Drug/Non Drug Allergy documented on EMR Reaction Allergy Type Onset Date Status dicyclomine Dicyclomine rash/hives Drug Allergy Ac tive Results Component Value Reference Range Notes X ray : Knee, left, include sunrise view Reviewed date:07/25/2024 08:35:08 AM Interpretation: Performing Lab: Notes/Report: Reason For Referral Diagnosis 1 Pain, joint, knee, l eft (M25.562) Referral Organization [facility] Referring Provider First Name Donna Referring Provider Last Name Ashlee Referring Provider Speciality Physician Neonatal Critical Care Nurse Referred Provider Orthopedics, . Referred Provider Specialty Orthopedic S urgery General Notes Donna Rosado 2023 10:55:36 AM > Pt needs an appt with Shabnam Noel Brynn 07/26/2024 10:28:28 AM > 08/01/2024 at 10:30am; lvm for patient with appt date and time Referral Priority Routine REASON FOR VISIT hurt knee Medications Medication SIG (Take, Route, Frequency, Duration) Notes Start Date End Date Status Betamethasone Dipropionate Aug 0.05 % 1 lidia applied topically 2 times a day 06/14/2022 Active Ajovy 225 MG/1.5ML as directed subcutaneously once a month; Duration: 30 days Active Methocarbamol 500 MG 1-2 tab orally tid, prn; Duration: 30 day(s) Active Escitalopram Oxalate 20 MG 1 tablet Orally Once a day; Duration: 30 days Active Atorvastatin Calcium 10 MG Take 1 tablet by mouth once daily; Duration: 30 days Active Vitamin B-12 1000 MCG 1 HANG SUBLINGUALLY ONCE A DAY *Please review and pick correct strength-formulat ion from [employer] options. If intended option is not shown, discontinue and re-order from Quick Search* Active DOMPERIDONE 10MG 1 ORAL QID *Please review for potential replacement for e-prescription and drug interaction check* Active Buckhead 3 1000 MG PO WITH MEAL Q DAY *Please revie w and pick correct strength-formulat ion from [employer] options. If intended option is not shown, discontinue and re-order from Quick Search* Active Vitamin D3 50 MCG (2000 UT) 1 tab(s) orally once a day Active Multiple Vitamin - 1 cap(s) orally once a day Active Ubrelvy 100 MG 1 tablet may take second dose at least 2 hours after first dose as needed Orally Once a day; Duration: 30 day(s) Active OMEPRAZOLE 20 MG 1 P.O. Q DAY *Please review for potential replacement for e-prescription and drug interaction check* Active busPIRone HCl 10 MG 1 tab(s) orally 1 time a day Active Aspirin Adult Low Dose 81 MG 1 tab(s) orally once a day Active Vital Signs Blood pressure systolic 120 mm Hg 07/24/20 24 Blood pressure diastolic 70 mm Hg 024 Heart Rate 60 /min 07/24/2024 Height 63 in 07/24/2024 Weight 143.0 lbs 07/24/2024 BMI 25.33 kg/m2 07/24/2024 Encounters Encounter Location Date Provider Diagnosis [facility] [address] [place] [id number] 07/24/2024 Donna Rosado Pain, joint, knee, l eft M25.562 Assessments Encounter Date Diagnosis (ICD Code) Assessment Notes Treatment Notes Treatment Clinical Notes Section Notes 07/24/2024 Pain, joint, knee, left (ICD-10 - M25.562) Plan Of Treatment Referrals Referral Date Details 07/24/2024 07/24/2024, . Orthop edics Next Appt Details Follow Up: via phone to repo rt test results, Reason: Progress Notes * BENJAMÍN CARRERA:1970 (55 yo F)Acc No.[id number]:07/24/2024 Progress Notes Patient: PAVAN RUIZ Provider: RODRI San :1970 A ge:54 Y S ex:Female Date:07/24/2024 Address:[address] [place], [place] [id number] Pcp:Setvie Etienne Subjective: * Chief Complaints: * 1 . Hurt knee. * HPI: K nee/Petit: The patient is here toady with c/o pain in the left knee. Pt states this has gotten worse over the past 2 weeks. Pt states the pain is worse with going up and down steps. 54 year old female presents with c/o knee pain. * ROS: D ERMATOLOGY: no R hai. n o H katie. G ASTROENTEROLOGY: no N ausea. n o V omiting. n o D iarrhea.? U ROLOGY: no D ifficulty urinating. n [...] no. Alcohol: No. * Medications: T aking Ubrelvy 100 MG Tablet 1 tablet may take second dose at least 2 hours after first dose as needed Orally Once a day , Taking OMEPRAZOLE 20 MG 1 P.O. Q DAY [...] day , Taking Vitamin D3 50 MCG (1999) Tablet 1 tab(s) orally once a day , Taking DOMPERIDONE 10MG 1 ORAL QID , Notes to Pharmacist: *Please review for potential replacement for e-prescription and drug interaction check*, Taking Vitamin B-12 1000 MCG LOZENGE 1 HANG SUBLINGUALLY ONCE A DAY , Notes to Pharmacist: *Please review and pick correct strength-formulation from [employer] options. If intended option is not shown, discontinue and re-order from Quick Search*, Taking Buckhead 3 1000 MG PO WITH MEAL Q DAY , Notes to Pharmacist: *Please review and pick correct strength-formulation from [employer] options. If intended option is not shown, discontinue and re-order from Quick Search*, Taking Betamethasone Dipropionate Aug 0.05 % Cream 1 lidia applied topically 2 times a day , Taking Methocarbamol 500 MG Tablet 1-2 tab orally tid, prn , Taking Ajovy 225 MG/1.5ML Solution Auto-injector as directed subcutaneously once a month , Taking Escitalopram Oxalate 20 MG Tablet 1 tablet Orally Once a day , Taking Atorvastatin Calcium 10 MG Tablet Take 1 tablet by mouth once daily , Discontinued Rizatriptan Benzoate 10 MG Tablet Disintegrating 1 tab(s) orally once a day as needed , Discontinued Propranolol HCl 20 MG Tablet 1 tab(s) 1-2 hour prior to presentation orally , Discontinued Medrol 4 MG Tablet Therapy Pack as directed orally , Discontinued Medrol 4 MG Tablet Therapy Pack as directed orally daily , Discontinued Bactrim DS 800-160 MG Tablet 1 tab(s) orally every 12 hours , Medication List reviewed and reconciled with the patient * Allergies: D icyclomine: rash/hives. Objective: * Vitals: W t:143.0, Temp:98.7, BP:120/70, HR:60, Nurse:KATHY, Ht: 63, BMI:25.33. * Examination: K nee / Petit: Knee: left. I nspection: no deformity, no swelling or redness. P alpation: tender over patella, no tenderness on joint lines or collateral ligaments. C ollateral ligaments: intact medially and laterally. R amanda of motion: pain at extremes of motion. M cmurray: negative. D rawer test: negative.?Patellofemoral joint: crepitations with movement. Assessment: * Assessment: 1. P ain, joint, knee, left - M25.562 (Primary) Plan: * Treatment: ? Referral To:. Orthopedics??Orthopedic Surgery ?Reason: * Follow Up: v ia phone to report test results * Images: Billing Information: * Visit Code: 40976 Office Visit, Est Pt., Level 3. * Procedure Codes: * Electronic signature of RODRI Peacock on 10/10/2025 at 06:48 AM EST Sign off status: Pending * Provider: RODRI San Date: 0 07/24/2024 Generated for Halliei ng/Famaite/eTransmitting on: 1 12/10/2024 06:48 AM EST History and Physical Notes * HPI (History of Present Illness) Category Sub-Category Detail Notes Category Not es Knee/Petit knee pain Examination Category Sub-Category Detail Notes Category Not es Knee / Petit Tung: negative Drawer test: negative Patellofemoral joint: crepitations with movement Palpation: tender over patella, no tenderness on joint lines or collateral ligaments Knee: left Inspection: no deformity, no swe lling or redness Range of motion: pain at extremes of motion Collateral ligaments: intact medially an d laterally Consultation Request Notes Referral Date Referring Provider Referred Provider Not ranjeet 07/24/2024 Donna Rosado Orthopedics, .
--- OUTSIDE RECORDS SUMMARY | 2024-12-19 09:45 | XMS_ITS ---
Author Organization [facility] Address [address] [facility] [address] [id number] Care Team Providers Care Seam Sewer Name Role Phone Stevie Etienne Primary Care Provider [phone] Donna Rosado Unavailable [phone] Allergies Allergen (clinical drug ingredient) Drug/Non Drug Allergy documented on EMR Reaction Allergy Type Onset Date Status Wheat Dextrin Unknown Drug Allergy Act sandhya dicyclomine Dicyclomine rash/hives Drug Allergy Ac tive Results Component Value Reference Range Notes Influenza Screen (in house) Reviewed date:12/20/2024 08:55:55 AM Interpretation:neg Performing Lab: Notes/Report: neg results neg CBC Fingerstick (in house) Reviewed date:12/20/2024 08:55:55 AM Interpretation: Performing Lab: Notes/Report: wbc 5.1 3.5 - 10 lym 21.4 15 - 50 mid 7.5 2 - 15 gran 71.1 35 - 80 rbc 4.04 3.5 - 5.5 hgb 11.6 11.5 - 16.5 hct 35.0 35 - 55 mcv 86.7 75 - 100 mch 28.7 25 - 35 mchc 33.1 31 - 38 plat 258 100 - 400 Covid test (in house) Reviewed date:12/20/2024 08:55:55 AM Interpretation:neg Performing Lab: Notes/Report: neg Result: neg REASON FOR VISIT sinus congestion Medications Medication SIG (Take, Route, Frequency, Duration) Notes Start Date End Date Status Methocarbamol 500 MG 1-2 tab orally tid, prn; Duration: 30 day(s) Active Ajovy 225 MG/1.5ML as directed subcutaneously once a month; Duration: 30 days Active Escitalopram Oxalate 20 MG 1 tablet Orally Once a day; Duration: 90 days Active Atorvastatin Calcium 10 MG Take 1 tablet by mouth once daily; Duration: 90 Active Betamethasone Dipropionate Aug 0.05 % 1 lidia applied topically 2 times a day 06/14/2022 Active Multiple Vitamin - 1 cap(s) orally once a day Active Vitamin D3 50 MCG (2000 UT) 1 tab(s) orally once a day Active DOMPERIDONE 10MG 1 ORAL QID *Please review for potential replacement for e-prescription and drug interaction check* Active Vitamin B-12 1000 MCG 1 HANG SUBLINGUALLY ONCE A DAY *Please review and pick correct strength-formulat ion from [employer] options. If intended option is not shown, discontinue and re-order from Quick Search* Active [place] 3 1000 MG PO WITH MEAL Q DAY *Please revie w and pick correct strength-formulat ion from [employer] options. If intended option is not shown, discontinue and re-order from Quick Search* Active busPIRone HCl 10 MG 1 tab(s) orally 1 time a day Active EpiPen 2-Aleksandar 0.3 MG/0.3ML as directed Injection Active Ubrelvy 100 MG 1 tablet may [...] day Active Vital Signs Blood pressure systolic 118 mm Hg 12/19/19 25 Blood pressure diastolic 80 mm Hg 025 Heart Rate 84 /min 12/19/2024 Height 63 in 12/19/2024 Weight 142.8 lbs 12/19/2024 BMI 25.29 kg/m2 12/19/2024 Encounters Encounter Location Date Provider Diagnosis [facility] [address] [facility] [address] [place], [place] [id number] 12/19/2024 Donna Rosado Acute URI J06.9 Assessments Encounter Date Diagnosis (ICD Code) Assessment Notes Treatment Notes Treatment Clinical Notes Section Notes 12/19/2024 Acute URI (ICD-10 - J06.9) fluids, rest, supportive measures for fever/symptom relief, has cough medication at home Plan Of Treatment Treatment Notes Assessment Notes Acute URI fluids, rest, suppor tive measures for fever/symptom relief, has cough medication at home Next Appt Details Follow Up: prn, Reason: Progress Notes * PAVAN CARRERADOB:1970 (55 yo F)Acc No.[id number]:12/19/2024 Progress Notes Patient: PAVAN RUIZ Provider: RODRI San :1970 A ge:54 Y S ex:Female Date:12/19/2024 Address:[address] [place], [place] [id number] Pcp:Stevie Etienne Subjective: * Chief Complaints: * 1 . Sinus congestion. * HPI: E NT/respiratory: 54 year old female presents with c/o sore throat. c/o cough. c/o nasal congestion. c/o ear pain t hrobbing, shooting pains. c/o headache. Denies : Fever. D enies : body aches. Pt sts her symptoms started on Monday. Pt sts her was sick and she got it from him. Pt sts her was tested for flu and covid but they were negative, and sts he just had sinusitis. * ROS: D ERMATOLOGY: no R hai. [...] no. Alcohol: No. * Medications: T aking EpiPen 2-Aleksandar 0.3 MG/0.3ML Solution Auto-injector as directed Injection , Taking Ubrelvy 100 MG Tablet 1 tablet may [...] *Please review and pick correct strength-formulation from [employer] options. If intended option is not shown, discontinue and re-order from Quick Search*, Taking Snow[place]oe 3 1000 MG PO WITH MEAL Q DAY , Notes to Pharmacist: *Please review and pick correct strength-formulation from [employer] options. If intended option is not shown, [...] 1 tablet by mouth once daily , Medication List reviewed and reconciled with the patient * Allergies: D icyclomine: rash/hives, Wheat Dextrin. Objective: * Vitals: W t:142.8, Temp:98.4, BP:118/80, HR:84, O2 Sat:96% on RA, Nurse:ROBY, Ht: 63, BMI:25.29. * Examination: E NT/Respiratory: General Appearance: N AD. E ars: a uditory canals normal bilaterally, TM's WNL. N ose : turbinates red, congested. S inuses : t stew maxillary sinuses bilaterally. O ral cavity : no erythema or exudate seen on pharynx, PND present. N giovanny : n o cervical lymphadenopathy. H eart : R RR, normal S1 S2, no murmurs. L ungs: c lear to auscultation bilaterally. Assessment: * Assessment: Ousmane yarbrough URI - J06.9 (Primary) Plan: * Treatment: Value Reference Range r esults neg * Augustina Vigil 12/19/2024 4:47: 05 PM > , Provider reviewed results while patient in office. ?LAB: CBC Fingerstick (in house) (Collection Date & Time - 12/19/2024)* Value Reference Range w bc 5.1 3.5 - 10 * l ym 21.4 15 - 50 * m id 7.5 2 - 15 * g ran 71.1 35 - 80 * r bc 4.04 3.5 - 5.5 * h gb 11.6 11.5 - 16.5 * h ct 35.0 35 - 55 * m cv 86.7 75 - 100 * m ch 28.7 25 - 35 * m chc 33.1 31 - 38 * p lat 258 100 - 400 * Augustina Vigil 12/19/2024 2:46: 21 PM > , Provider reviewed results while patient in office. ?LAB: Covid test (in house) (Collection Date & Time - 12/19/2024)?neg* Value Reference Range R esult: neg * Augustina Vigil 12/19/2024 4:47: 23 PM > , Provider reviewed results while patient in office. Notes: fluids, rest, supportive measures for fever/symptom relief, has cough medication at home ? * Procedure Codes: 9 47[address] [place], [address] CAPILLARY BLOOD DRAW, 23821 CBC WITH AUTO DIFF, 66932 Flu Test- Nasal Swab, Modifiers: QW , 97874 COVID TEST IN HOUSE, Modifiers: QW * Follow Up: p rn * Images: Billing Information: * Visit Code: 75995 Office Visit, Est Pt., Level 3. * Procedure Codes: [address] [place]. [address] CAPILLARY BLOOD DRAW. 50463 CBC WITH AUTO DIFF. 18285 Flu Test- Nasal Swab. Modifiers: QW 20195 COVID TEST IN HOUSE. Modifiers: QW * Electronic signature of RODRI Peacock on 10/10/2025 at 06:49 AM EST Sign off status: Pending * Provider: RODRI San Date: 0 12/19/2024 Generated for David gaspar/Elvis/Ashish on: 1 12/10/2024 06:49 AM EST History and Physical Notes * HPI (History of Present Illness) Category Sub-Category Detail Notes Category Not es ENT/respiratory sore throat Pt sts her s ymptoms started on Monday. Pt sts her was sick and she got it from him. Pt sts her was tested for flu and covid but they were negative, and sts he just had sinusitis ear pain throbbing, shooting pains cough Fever headache nasal congestion body aches Examination Category Sub-Category Detail Notes Category Not es ENT/Respiratory Oral cavity : no erythema or e xudate seen on pharynx, PND present Sinuses : tender maxillary sin uses bilaterally Ears: auditory canals norm al bilaterally, TM's WNL Neck : no cervical lymphade nopathy Heart : RRR, normal S1 S2, n o murmurs Lungs: clear to auscultatio n bilaterally General Appearance: NAD Nose : turbinates red, daksha ested
--- OUTSIDE RECORDS SUMMARY | 2025-05-14 05:00 | XMS_ITS ---
Author Organization [facility] Address [address] [facility] [address] [id number] Care Team Providers Care Doorperson Name Role Phone Stevie Etienne Primary Care Provider Donna Rosado Unavailable [phone] Allergies Allergen (clinical drug ingredient) Drug/Non Drug Allergy documented on EMR Reaction Allergy Type Onset Date Status Wheat Dextrin Unknown Drug Allergy Act sandhya dicyclomine Dicyclomine rash/hives Drug Allergy Ac tive Results Component Value Reference Range Notes H-TSH Reviewed date:05/15/2025 09:54:19 AM Interpretation: Performing Lab: Notes/Report: TSH 0.75 0.465-4.68 uIU/mL H-CBC Reviewed date:05/15/2025 09:54:19 AM Interpretation: Performing Lab: Notes/Report: WBC 3.5 4.8-10.8 K/mm3 RBC 4.31 4.20-5.40 M/mm3 HGB 12.2 12.2-16.2 g/dL HCT 37.7 37.0-47.0 % MCV 87.5 81-99 fl MCH 28.3 27.0-31.2 pg MCHC 32.4 31.8-35.4 g/dL RDW-SD 42.4 RDW 13.1 11.5-17.5 % PLT 293 142-424 K/mm3 MPV 9.8 7.4-10.4 fl NE% 53.6 37.0-80.0 % LY% 31.4 10-50 % MO% 10.5 1.7-9.3 % EO% 3.1 0.1-12.0 % BA% 1.1 0.1-2.0 % NRBC% 0 IG% 0.3 NE# 1.9 1.8-7.8 K/mm3 LY# 1.1 0.7-4.5 K/mm3 MO# 0.4 0.1-1.0 K/mm3 EO# 0.1 0.0-0.4 Kmm3 BA# 0.0 0-0.2 K/mm3 NRBC# 0 IG# 0.01 H-VITAMIN D Reviewed date:05/15/2025 09:54:19 AM Interpretation: Performing Lab: Notes/Report: TVITD 45.1 30-100 ng/mL Deficient <20 ng/mL Insufficient 20-30 ng/mL Sufficient 30-100 ng/mL Potential Toxicity >100 ng/mL H-Lipid Panel Reviewed date:05/15/2025 09:54:19 AM Interpretation: Performing Lab: Notes/Report: Patient Fasting? Y TRIG 104 30-150 mg/dl CHOL 194 140-200 mg/dl DLDL 93.36 100-129 mg/dL VLDL 21 0-40 mg/dL HDL 55 40-60 mg/dl CHLHDL 3.5 1-3.5 H-CMP Reviewed date:05/15/2025 09:54:19 AM Interpretation: Performing Lab: Notes/Report: NA 139 136-145 mmol/L K 4.6 3.5-5.1 mmoL/L CL 98 98-107 mmol/L CO2 33 22.0-30.0 mmol/L GAP 12.6 5-15 mEq/L BUN 13 7-17 mg/dl CREATT 0.70 0.52-1.04 mg/dl GFRAA 106 >60 ML/MIN EGFR 87 >60 ml/min GLU 100 74-100 mg/dl CA 9.4 8.4-10.2 mg/dl BILIT 0.6 0.2-1.3 mg/dl AST 37 14-36 U/L ALT 30 12-78 U/L TP 6.9 6.3-8.2 g/dl ALB 4.3 3.5-5.0 g/dl GLOB 2.6 1.3-3.2 g/dL AGRATIO 1.7 1.1-1.8 ALP 116 38-126 U/L REASON FOR VISIT check up and blood work Medications Medication SIG (Take, Route, Frequency, Duration) Notes Start Date End Date Status Ubrelvy 100 MG 1 tablet may take second dose at least 2 hours after first dose as needed Orally Once a day; Duration: 30 day(s) Active OMEPRAZOLE 20 MG 1 P.O. Q DAY *Please review for potential replacement for e-prescription and drug interaction check* Active Aspirin Adult Low Dose 81 MG 1 tab(s) orally once a day Active busPIRone HCl 10 MG 1 tab(s) orally 1 time a day Active Multiple Vitamin - 1 cap(s) orally once a day Active EpiPen 2-Aleksandar 0.3 MG/0.3ML as directed Injection Active Methocarbamol 500 MG 1-2 tab orally tid, prn; Duration: 30 day(s) Not-Taking Ajovy 225 MG/1.5ML as directed subcutaneously once a month; Duration: 30 days Active Escitalopram Oxalate 20 MG 1 tablet Orally Once a day; Duration: 90 days Active Atorvastatin Calcium 10 MG Take 1 tablet by mouth once daily; Duration: 90 Active Betamethasone Dipropionate Aug 0.05 % 1 lidia applied topically 2 times a day 06/14/2022 Active Vitamin D3 50 MCG (2000 UT) 1 tab(s) orally once a day Active DOMPERIDONE 10MG 1 ORAL QID *Please review for potential replacement for e-prescription and drug interaction check* Active Vitamin B-12 1000 MCG 1 HANG SUBLINGUALLY ONCE A DAY *Please review and pick correct strength-formula tion from [employer] options. If intended option is not shown, discontinue and re-order from Quick Search* Active Muscoda 3 1000 MG PO WITH MEAL Q DAY *Please revie w and pick correct strength-formula tion from [employer] options. If intended option is not shown, discontinue and re-order from Quick Search* Active Problems Problem Type SNOMED Code ICD Code Onset Dates Problem Status W/U Status Risk Notes Problem Hypoglycemia (091995221) Hypoglycemia (E16.2) Active confirmed Vital Signs Blood pressure systolic 110 mm Hg 05/14/20 25 Blood pressure diastolic 70 mm Hg 025 Heart Rate 75 /min 05/14/2025 Height 63 in 05/14/2025 Weight 136.6 lbs 05/14/2025 BMI 24.19 kg/m2 05/14/2025 Encounters Encounter Location Date Provider Diagnosis [facility] [address] [place], [place] [id number] 05/14/2025 Donna Rosado Dizziness R42 ; Hypoglycemia E16.2 ; Dyslipidemia E78.5 ; Vitamin D deficiency E55.9 and Gastroesophageal reflux disease without esophagitis K21.9 Assessments Encounter Date Diagnosis (ICD Code) Assessment Notes Treatment Notes Treatment Clinical Notes Section Notes 05/14/2025 Dizziness (ICD-10 - R42) h 05/14/2025 Hypoglycemia (ICD-10 - E16.2) Patient's near syncopal episode was made better by eating. She thinks her glucose is dropping. We discuss diet and making sure to eat 3 meals along with snacks in between that contain protein. Will check labs. She may need a glucose tolerance test. h 05/14/2025 Dyslipidemia (ICD-10 - E78.5) h 05/14/2025 Vitamin D deficiency (ICD-10 - E55.9) h 05/14/2025 Gastroesophageal reflux disease without esophagitis (ICD-10 - K21.9) h Plan Of Treatment Treatment Notes Assessment Notes Hypoglycemia Patient's near synco pal episode was made better by eating. She thinks her glucose is dropping. We discuss diet and making sure to eat 3 meals along with snacks in between that contain protein. Will check labs. She may need a glucose tolerance test. Next Appt Details Follow Up: via phone to repo rt test results, Reason: Progress Notes * CARRERAPAVANDOB:1970 (55 yo F)Acc No.[id number]:05/14/2025 Progress Notes Patient: PAVAN RUIZ Provider: RODRI San :1970 A ge:54 Y S ex:Female Date:05/14/2025 Address:[address] [place], [place] [address] Pcp:Stevie Etienne Subjective: * Chief Complaints: * 1 . Check up and blood work. * HPI: H PI: The patient is here for a check and fasting labs. Pt states she had an episode of near syncope on Monday and would like to discuss low blood sugar. Pt is fasting. * ROS: D ERMATOLOGY: no R hai. [...] day , Taking Vitamin D3 50 MCG (1999 UT) Tablet 1 tab(s) orally once a day , Taking DOMPERIDONE 10MG 1 ORAL QID , Notes to Pharmacist: *Please review for potential replacement for e-prescription and drug interaction check*, Taking Vitamin B-12 1000 MCG LOZENGE 1 HANG SUBLINGUALLY ONCE A DAY , Notes to Pharmacist: *Please review and pick correct strength-formulation from [employer] options. If intended option is not shown, discontinue and re-order from Quick Search*, Taking [place] 3 1000 MG PO WITH MEAL Q DAY , Notes to Pharmacist: *Please review and pick correct strength-formulation from [employer] options. If intended option is not shown, discontinue and re-order from Quick Search*, Taking Betamethasone Dipropionate Aug 0.05 % Cream 1 lidia applied topically 2 times a day , Taking Ajovy 225 MG/1.5ML Solution Auto-injector as directed subcutaneously once a month , Taking Escitalopram Oxalate 20 MG Tablet 1 tablet Orally Once a day , Taking Atorvastatin Calcium 10 MG Tablet Take 1 tablet by mouth once daily , Not-Taking Methocarbamol 500 MG Tablet 1-2 tab orally tid, prn , Medication List reviewed and reconciled with the patient * Allergies: D icyclomine: rash/hives, Wheat Dextrin. Objective: * Vitals: W t: 136.6, Temp: 98.8, BP: 110/70, HR: 75, Nurse: KATHY, Ht: 63, BMI:24.19. * Examination: G eneral Examination: General Appearance: N AD. H EENT: s clera and conjunctiva clear, PERRLA, TM's normal, translucent, EOM's with normal ROM. O ral cavity: n o lesions, mucosa moist and WNL, no erythema. N giovanny: s upple, no lymphadenopathy. C hest: normal shape and expansion. H eart: R SR. L ungs: c lear to auscultation. A bdomen: b owel sounds present, soft and nontender, no organomegaly or masses. N eurologic Exam: a lert and oriented, normal cranial nerves II-XII sensory & motor WNL. S kin: n ormal, no rash. P eripheral pulses: n ormal (2+) bilaterally. E xtremities: n o leg edema. Assessment: * Assessment: 1. H ypoglycemia - E16.2 (Primary) 2 . D izziness - R42 3 .?Dyslipidemia - E78.5 4 . V itamin D deficiency - E55.9 5 .?Gastroesophageal reflux disease without esophagitis - K21.9 h Plan: * Treatment: 2. D izziness L AB: H-TSH (Collection Date & Time - 05/14/2025 10:39 AM) Value Reference Range T SH 0.75 0.465-4.68 - uIU/mL * Donna Rosado S 05/15/2025 0 9:54:09 AM EDT >see TE ?LAB: H-CBC (Collection Date & Time - 05/14/2025 10:39 AM)* Value Reference Range W BC 3.5 L 4.8-10.8 - K/mm3 * R BC 4.31 4.20-5.40 - M/mm3 * H GB 12.2 12.2-16.2 - g/dL * H CT 37.7 37.0-47.0 - % * M CV 87.5 81-99 - fl * M CH 28.3 27.0-31.2 - pg * M CHC 32.4 31.8-35.4 - g/dL * R DW 13.1 11.5-17.5 - % * P LT 293 142-424 - K/mm3 * M PV 9.8 7.4-10.4 - fl * N E% 53.6 37.0-80.0 - % * L Y% 31.4 10-50 - % * M O% 10.5 H 1.7-9.3 - % * E O% 3.1 0.1-12.0 - % * B A% 1.1 0.1-2.0 - % * N E# 1.9 1.8-7.8 - K/mm3 * L Y# 1.1 0.7-4.5 - K/mm3 * M O# 0.4 0.1-1.0 - K/mm3 * E O# 0.1 0.0-0.4 - Kmm3 * B A# 0.0 0-0.2 - K/mm3 * R DW-SD 42.4 - fL * N RBC% 0 - % * N RBC# 0 - 10 3/uL * I G% 0.3 - % * I G# 0.01 - 10 3uL * Donna Rosado 05/15/2025 0 9:54:09 AM EDT >see TE 3.?Dyslipidemia?LAB: H-Lipid Panel (Collection Date & Time - 05/14/2025 10:39 AM)* Value Reference Range T RIG 104 30-150 - mg/dl * C HOL 194 140-200 - mg/dl * D LDL 93.36 L 100-129 - mg/dL * V LDL 21 0-40 - mg/dL * H DL 55 40-60 - mg/dl * C HLHDL 3.5 1-3.5 - * Donna Rosado 05/15/2025 0 9:54:09 AM EDT >see TE ?LAB: H-CMP (Collection Date & Time - 05/14/2025 10:39 AM)* Value Reference Range N A 139 136-145 - mmol/L * K 4.6 3.5-5.1 - mmoL/L * C L 98 98-107 - mmol/L * C O2 33 H 22.0-30.0 - mmol/L * G AP 12.6 5-15 - mEq/L * B UN 13 7-17 - mg/dl * C REATT 0.70 0.52-1.04 - mg/dl * G FRAA 106 >60 - ML/MIN * E GFR 87 >60 - ml/min * G RUSSEL 100 74-100 - mg/dl * C A 9.4 8.4-10.2 - mg/dl * B ILIT 0.6 0.2-1.3 - mg/dl * A ST 37 H 14-36 - U/L * A LT 30 12-78 - U/L * T P 6.9 6.3-8.2 - g/dl * A LB 4.3 3.5-5.0 - g/dl * G LOB 2.6 1.3-3.2 - g/dL * A GRATIO 1.7 1.1-1.8 - * A LP 116 38-126 - U/L * Donna Rosado 05/15/2025 0 9:54:09 AM EDT >see TE 4.?Vitamin D deficiency?LAB: H-VITAMIN D (Collection Date & Time - 05/14/2025 10:39 AM)* Value Reference Range T VITD 45.1 30-100 - ng/mL * Donna Rosado 05/15/2025 0 9:54:09 AM EDT >see TE * Procedure Codes: 1 036F TOBACCO NON-USER, G8420 BMI<30 AND >=22 CALC & DOCU, G8783 BP SCR PRFRM RCMDD DEFIND SCR INTVL, G8752 MOST RECENT SYSTOLIC BP < 140MM HG, G8754 MOST RECENT DIASTOLIC BP < 90MM HG * Follow Up: v ia phone to report test results * Images: Billing Information: * Visit Code: 34655 Office Visit, Est Pt., Level 4. * Procedure Codes: 1036F TOBACCO NON-USER. G8420 BMI<30 AND >=22 CALC & DOCU. G8783 BP SCR PRFRM RCMDD DEFIND SCR INTVL. G8752 MOST RECENT SYSTOLIC BP < 140MM HG. G8754 MOST RECENT DIASTOLIC BP < 90MM HG. * Electronic signature of RODRI Peacock on 10/10/2025 at 06:49 AM EST Sign off status: Pending * Provider: RODRI San Date: 0 05/14/2025 Generated for Halliei chasity/Fabenitezg/eTransmitting on: 1 12/10/2024 06:49 AM EST History and Physical Notes * Examination Category Sub-Category Detail Notes Category Not es General Examination HEENT: sclera and c onjunctiva clear, PERRLA, TM's normal, translucent, EOM's with normal ROM Heart: RSR Lungs: clear to auscultatio n Abdomen: bowel sounds present , soft and nontender, no organomegaly or masses Extremities: no leg edema General Appearance: NAD Skin: normal, no rash Neurologic Exam: alert and oriented, normal cranial nerves II-XII sensory & motor WNL Neck: supple, no lymphaden opathy Oral cavity: no lesions, mucosa m oist and WNL, no erythema Peripheral pulses: normal (2+) bilatera lly Chest: normal shape and exp ansion
--- OUTSIDE RECORDS SUMMARY | 2025-09-04 06:30 | XMS_ITS ---
[facility] Organization [facility] Address [address] [facility] [address] [id number] Care Team Providers Care Senior Java Programmer Name Role Phone Stevie Etienne Primary Care Provider Donna Rosado Unavailable [phone] Allergies Allergen (clinical drug ingredient) Drug/Non Drug Allergy documented on EMR Reaction Allergy Type Onset Date Status Wheat Dextrin Unknown Drug Allergy Act sandhya dicyclomine Dicyclomine rash/hives Drug Allergy Ac tive Results Component Value Reference Range Notes Influenza Screen (in house) Reviewed date:09/05/2025 04:40:28 PM Interpretation: Performing Lab: Notes/Report: results neg CBC Fingerstick (in house) Reviewed date:09/05/2025 04:40:28 PM Interpretation: Performing Lab: Notes/Report: wbc 5.8 3.5 - 10 lym 18.0 15 - 50 mid 5.3 2 - 15 gran 76.7 35 - 80 rbc 4.49 3.5 - 5.5 hgb 12.6 11.5 - 16.5 hct 38.6 35 - 55 mcv 85.9 75 - 100 mch 28.2 25 - 35 mchc 32.8 31 - 38 plat 240 100 - 400 TEN-Upper Respiratory PCR Reviewed date:09/08/2025 09:19:17 AM Interpretation:Abnormal Performing Lab: Notes/Report: Abnormal Covid test (in house) Reviewed date:09/05/2025 04:40:28 PM Interpretation: Performing Lab: Notes/Report: Result: neg REASON FOR VISIT Reaction to Flu Medications Medication SIG (Take, Route, Frequency, Duration) Notes Start Date End Date Status OMEPRAZOLE 20 MG 1 P.O. Q DAY *Please review for potential replacement for e-prescription and drug interaction check* Active busPIRone HCl 10 MG 1 tab(s) orally 1 time a day Active Aspirin Adult Low Dose 81 MG 1 tab(s) orally once a day Active Vitamin D3 50 MCG (2000 UT) 1 tab(s) orally once a day Active Multiple Vitamin - 1 cap(s) orally once a day Active EpiPen 2-Aleksandar 0.3 MG/0.3ML as directed Injection Active Atorvastatin Calcium 10 MG Take 1 tablet by mouth once daily; Duration: 90 Active Ubrelvy 100 MG 1 tablet may take second dose at least 2 hours after first dose as needed Orally Once a day; Duration: 30 day(s) Active Escitalopram Oxalate 20 MG 1 tablet Orally Once a day; Duration: 90 days Active Ajovy 225 MG/1.5ML as directed subcutaneously once a month; Duration: 30 days Active Betamethasone Dipropionate Aug 0.05 % 1 lidia applied topically 2 times a day 06/14/2022 Active Ithaca 3 1000 MG PO WITH MEAL Q DAY *Please revie w and pick correct strength-formulat ion from [employer] options. If intended option is not shown, discontinue and re-order from Quick Search* Active Vitamin B-12 1000 MCG 1 HANG SUBLINGUALLY ONCE A DAY *Please review and pick correct strength-formulat ion from [employer] options. If intended option is not shown, discontinue and re-order from Quick Search* Active DOMPERIDONE 10MG 1 ORAL QID *Please review for potential replacement for e-prescription and drug interaction check* Active Vital Signs Blood pressure systolic 142 mm Hg 09/04/20 25 Blood pressure diastolic 60 mm Hg 025 Heart Rate 86 /min 09/04/2025 Height 63 in 09/04/2025 Weight 139.4 lbs 09/04/2025 BMI 24.69 kg/m2 09/04/2025 Encounters Encounter Location Date Provider Diagnosis [facility] [address] [place], [place] [id number] 09/04/2025 Donna Rosado Acute URI J06.9 ; Zachary dy aches R52 and Rash R21 Assessments Encounter Date Diagnosis (ICD Code) Assessment Notes Treatment Notes Treatment Clinical Notes Section Notes 09/04/2025 Acute URI (ICD-10 - J06.9) 09/04/2025 Body aches (ICD-10 - R52) 09/04/2025 Rash (ICD-10 - R21) Plan Of Treatment Next Appt Details Follow Up: via phone to repo rt test results, Reason: Progress Notes * PAVAN CARRERADOB:1970 (55 yo F)Acc No.[id number]:09/04/2025 Progress Notes Patient: PAVAN RUIZ Provider: RODRI San :1970 A ge:55 Y S ex:Female Date:09/04/2025 Address:[address] [place], [place] [id number] Pcp:Stevie Etienne Subjective: * Chief Complaints: * 1 . Reaction to Flu. * HPI: D ermatology: 55 year old female presents with c/o rash P t states she got a flu shot Monday, and she has not been feeling right since then. Pt states she has a rash and has been running a fever daily since then and also has complaints of body aches. * ROS: C ARDIOLOGY: no C hest pain. n o P alpitations. G ASTROENTEROLOGY: no N ausea. n o [...] *Please review and pick correct strength-formulation from Tra[employer]Doc options. If intended option is not shown, discontinue and re-order from Quick Search*, Taking Ithaca 3 1000 MG PO WITH MEAL Q DAY , Notes to Pharmacist: *Please review and pick correct strength-formulation from TraveDoc options. If intended option is not shown, [...] tablet by mouth once daily , Discontinued Methocarbamol 500 MG Tablet 1-2 tab orally tid, prn , Medication List reviewed and reconciled with the patient * Allergies: D icyclomine: rash/hives, Wheat Dextrin. Objective: * Vitals: W t: 139.4, Temp: 98.5, BP: 142/60, HR: 86, O2 Sat: 97% on RA, Nurse: pe, Ht: 63, BMI:24.69. * Examination: G eneral Examination: General Appearance: m ildly ill but in no acute distress.?HEENT: n ose congested, sclera and conjunctiva clear, PERRLA, TM's normal, translucent. O ral cavity: m inimal erythema. N giovanny: s upple, no lymphadenopathy. C hest: n ormal shape and expansion. H eart: R SR. L ungs: c lear to auscultation. A bdomen: b owel sounds present, soft and nontender. N eurologic Exam: I ntact, gait normal. Skin: t here is a circular area of erythema on the upper left breast and on the upper left thigh but no tenderness, the areas are not hot to the touch or pruritic. P eripheral pulses: n ormal (2+) bilaterally. E xtremities: n o leg edema. Assessment: * Assessment: 1. A cute URI - J06.9 (Primary) 2 . B deneen aches - R52 3 .?Rash - R21 Plan: * Treatment: Value Reference Range r esults neg * Lidya Licea 09/04/2025 12:53:46 PM EDT > Provider reviewed results while patient in office. ?LAB: CBC Fingerstick (in house) (Collection Date & Time - 09/04/2025)* Value Reference Range w bc 5.8 3.5 - 10 * l ym 18.0 15 - 50 * m id 5.3 2 - 15 * g ran 76.7 35 - 80 * r bc 4.49 3.5 - 5.5 * h gb 12.6 11.5 - 16.5 * h ct 38.6 35 - 55 * m cv 85.9 75 - 100 * m ch 28.2 25 - 35 * m chc 32.8 31 - 38 * p lat 240 100 - 400 * Lidya Licea 09/04/2025 12:55:10 PM EDT > Provider reviewed results while patient in office. ?LAB: TEN-Upper Respiratory PCR (Collection Date & Time - 09/04/2025)? Abnormal* Donna Rosado 09/08/2025 09:19:06 AM EDT >see TE ?LAB: Covid test (in house) (Collection Date & Time - 09/04/2025)* Value Reference Range R esult: neg * Lidya Licea 09/04/2025 12:53:25 PM EDT > Provider reviewed results while patient in office. * Procedure Codes: 8 7804 Flu Test- Nasal Swab, Modifiers: QW , 28237 COVID TEST IN HOUSE, Modifiers: QW , 99405 CAPILLARY BLOOD DRAW, 42031 CBC WITH AUTO DIFF, 1036F TOBACCO NON-USER * Follow Up: v ia phone to report test results * Images: Billing Information: * Visit Code: 66675 Office Visit, Est Pt., Level 4. * Procedure Codes: 73684 Flu Test- Nasal Swab. Modifiers: QW 15578 COVID TEST IN HOUSE. Modifiers: QW 53509 CAPILLARY BLOOD DRAW. 74196 CBC WITH AUTO DIFF. 1036F TOBACCO NON-USER. * Electronic signature of RODRI Peacock on 10/10/2025 at 06:48 AM EST Sign off status: Pending * Provider: RODRI San Date: Generated for ActualSun ng/Fabenitezg/eTransmitting on: 12/10/2024 06:48 AM EST History and Physical Notes * HPI (History of Present Illness) Category Sub-Category Detail Notes Category Not es Dermatology rash Pt states she go t a flu shot Monday, and she has not been feeling right since then. Pt states she has a rash and has been running a fever daily since then and also has complaints of body aches Examination Category Sub-Category Detail Notes Category Not es General Examination HEENT: nose congest ed, sclera and conjunctiva clear, PERRLA, TM's normal, translucent Heart: RSR Lungs: clear to auscultatio n Abdomen: bowel sounds present , soft and nontender Extremities: no leg edema General Appearance: mildly ill but in no acute distress Skin: there is a circular area of erythema on the upper left breast and on the upper left thigh but no tenderness, the areas are not hot to the touch or pruritic Neurologic Exam: Intact, gait normal Neck: supple, no lymphaden opathy Oral cavity: minimal erythema Peripheral pulses: normal (2+) bilatera lly Chest: normal shape and exp ansion
--- OUTSIDE RECORDS SUMMARY | 2025-09-11 05:00 | XMS_ITS ---
Author Organization [facility] Address [address] [facility] 36 [facility] [address] [place] [id number] Care Team Providers Care Hosiery Bagger Name Role Phone Stevie Etienne Primary Care Provider Donna Rosado Unavailable [phone] Allergies Allergen (clinical drug ingredient) Drug/Non Drug Allergy documented on EMR Reaction Allergy Type Onset Date Status Wheat Dextrin Unknown Drug Allergy Act sandhya dicyclomine Dicyclomine rash/hives Drug Allergy Ac tive Results Component Value Reference Range Notes CBC Venipuncture (in house) Reviewed date:09/11/2025 01:27:35 PM Interpretation: Performing Lab: Notes/Report: wbc 8.3 3.5 - 10 lymph 12.5 15 - 50 mid 5.5 2 - 15 gran 82.0 35 - 80 rbc 4.46 3.5 - 5.5 hgb 12.8 11.5 - 16.5 hct 38.3 35 - 55 mcv 85.8 75 - 100 mch 28.6 25 - 35 mchc 33.3 31 - 38 platlet 591 100 - 400 P-Antinuclear Antibodies (AN A) 9 Panel w/o Screen Reviewed date:09/15/2025 01:36:23 PM Interpretation: Performing Lab: Notes/Report: Test performed by [facility] [address] [place] [address] , [address], [place] [address] West Nelson MD, Elementary [employer] Director CLIA: [id number] Chromatin Antibodies <0.2 0.0-0.[address] is performed by Multiplex Bead Immunoassay methodology. Centromere Antibodies <0.2 0.0-0.9 AI This t est is performed by Multiplex Bead Immunoassay methodology. Adler Antibodies IgG <0.2 0.0-0.[address] is performed by Multiplex Bead Immunoassay methodology. SUPERINTENDENT SEED MILL Antibodies 1.0 0.0-0.9 AI This test is performed by Multiplex Bead Immunoassay methodology. Scleroderma (SCL-70) Antibodies <0.2 0.0-0.9 AI This test is perform ed by Multiplex Bead Immunoassay methodology. Rehana-1 Antibodies <0.2 0.0-0.9 AI dsDNA Antibodies 1 0-4 IU/mL For dsDNA: Results of < or = 4 IU/mL are Negative Results of 5-9 IU/mL are Indeterminate Results of > or = 10 IU/mL are Positive SS-A Autoantibodies IgG <0.2 0.0-0.9 AI This test is performed by Multiplex Bead Immunoassay methodology. SS-B Autoantibodies IgG <0.2 0.0-0.9 AI P-Antistreptolysin O AB Reviewed date:09/15/2025 01:36:23 PM Interpretation: Performing Lab: Notes/Report: Test performed by [facility] [address] [place], [place] [address] [place] , [facility], [place] [address] West Nelson MD, Elementary [employer] Director CLIA: [id number] Antistreptolysin O AB <20 <20-200.0 IU/mL P-Lyme Disease (B. burgodorf ravinder), IgG/IgM, NILSA, Serum Reviewed date:09/15/2025 01:36:23 PM Interpretation: Performing Lab: Notes/Report: Test performed by [facility] [address] [place] [address] , [address], [place] [address] West Nelson MD, Elementary [employer] Director CLIA: [id number] B burgdorferi (Lyme Disease) IgG Positive Negative B burgdorferi (Lyme Disease) IgM Positive Negative P-Comprehensive Metabolic Pa polina (CMP) Reviewed date:09/15/2025 01:36:23 PM Interpretation: Performing Lab: Notes/Report: Test performed by [facility] [address] [place] [address] [address], [place] [address] West Nelson MD, Elementary [employer] Director CLIA: [id number] Sodium 138 135-145 mmol/L Potassium 4.4 3.5-5.3 mmol/L Chloride 98 97-108 mmol/L CO2 28 20-32 mmol/L Glucose 92 65-99 mg/dL BUN 18 6-20 mg/dL Creatinine 0.89 0.50-1.00 mg/dL Calcium 8.9 8.6-10.4 mg/dL eGFR by Creatinine 76 >59 mL/min/1.73m2 Protein 6.9 6.0-8.3 g/dL Albumin 4.1 3.5-5.3 g/dL Alkaline Phosphatase 247 35-121 IU/L ALT (SGPT) 60 <5-47 IU/L AST (SGOT) 38 <5-40 IU/L Bilirubin, Total 0.4 <0.2-1.2 mg/dL A/G Ratio 1.5 1.1-2.5 P-CPK Reviewed date:09/15/2025 01:36:24 PM Interpretation: Performing Lab: Notes/Report: Test performed by [facility] [address] [place] [address] , [facility], [place] [address] West Nelson MD, Elementary School [employer] Director CLIA: [id number] Creatine Kinase 30 20-180 U/L P-Arthritis Panel, [employer] Reviewed date:09/15/2025 01:36:24 PM Interpretation: Performing Lab: Notes/Report: Test performed by [facility] [address] [place] [address] , [address], [place] [address] West Nelson MD, Elementary School [employer] Director CLIA: [id number] Erythrocyte Sedimentation Ra te (ESR), Automated 7 <31 mm/hr Rheumatoid Factor <10 <14.1 IU/mL C-Reactive Protein (CRP) 0.24 <0.50 mg/dL Antinuclear Antibodies (ALEXANDR) Screen, Reflex ALEXANDR 9 Panel POSITIVE Negative This test is performed by Multiplex Bead Immunoassay methodology. CCP Antibodies <0.5 <0.5-3.0 U/mL Antinuclear Antibodies (ALEXANDR) Result Note SEE COMMENT For positive Autoantibodies, please refer to the interpretive chart here: [email or web address] REASON FOR VISIT body aches Medications Medication SIG (Take, Route, Frequency, Duration) Notes Start Date End Date Status Cefdinir 300 MG 1 cap(s) Orally Two times a day; Duration: 10 days 09/11/2025 Active Medrol 4 MG as directed Orally 09/11/2025 Active OMEPRAZOLE 20 MG 1 P.O. Q DAY *Please review for potential replacement for e-prescription and drug interaction check* Active Ubrelvy 100 MG 1 tablet may take second dose at least 2 hours after first dose as needed Orally Once a day; Duration: 30 day(s) Active EpiPen 2-Aleksandar 0.3 MG/0.3ML as directed Injection Active Bactrim DS 800-160 MG 1 tablet Orally twice a day; Duration: 10 days 09/08/2025 Active Atorvastatin Calcium 10 MG Take 1 tablet by mouth once daily; Duration: 90 Active Escitalopram Oxalate 20 MG 1 tablet Orally Once a day; Duration: 90 days Active Ajovy 225 MG/1.5ML as directed subcutaneously once a month; Duration: 30 days Active Jackson 3 1000 MG PO WITH MEAL Q DAY *Please revie w and pick correct strength-formulat ion from [employer] options. If intended option is not shown, discontinue and re-order from Quick Search* Active Vitamin B-12 1000 MCG 1 HANG SUBLINGUALLY ONCE A DAY *Please review and pick correct strength-formulat ion from [employer]er options. If intended option is not shown, discontinue and re-order from Quick Search* Active DOMPERIDONE 10MG 1 ORAL QID *Please review for potential replacement for e-prescription and drug interaction check* Active Vitamin D3 50 MCG (2000 UT) 1 tab(s) orally once a day Active Betamethasone Dipropionate Aug 0.05 % 1 lidia applied topically 2 times a day 06/14/2022 Active Multiple Vitamin - 1 cap(s) orally once a day Active busPIRone HCl 10 MG 1 tab(s) orally 1 time a day Active Aspirin Adult Low Dose 81 MG 1 tab(s) orally once a day Active Vital Signs Blood pressure systolic 130 mm Hg 09/11/20 25 Blood pressure diastolic 70 mm Hg 025 Heart Rate 93 /min 09/11/2025 Height 63 in 09/11/2025 Weight 137.8 lbs 09/11/2025 BMI 24.41 kg/m2 09/11/2025 Encounters Encounter Location Date Provider Diagnosis [facility] [address], [place] [id number] 09/11/2025 Donna Rosado Acute URI J06.9 ; Zachary dy aches R52 ; Rash R21 and Staph aureus infection A49.01 Assessments Encounter Date Diagnosis (ICD Code) Assessment Notes Treatment Notes Treatment Clinical Notes Section Notes 09/11/2025 Acute URI (ICD-10 - J06.9) 09/11/2025 Body aches (ICD-10 - R52) The steroids helped the body aches. Discussed with Dr. Salgado and he examined the patient as well. Will start on another round of steroids and get labs. 09/11/2025 Rash (ICD-10 - R21) 09/11/2025 Staph aureus infection (ICD-10 - A49.01) Will change abx and get labs. Plan Of Treatment Medication Medication Name Sig Start Date Stop Date Notes Cefdinir 300 MG 1 cap(s) Orally Two times a day; Duration: 10 days 09/11/2025 Medrol 4 MG as directed Orally 09/11/2025 Treatment Notes Assessment Notes Body aches The steroids helped the body aches. Discussed with Dr. Salgado and he examined the patient as well. Will start on another round of steroids and get labs. Staph aureus infection Will change abx a nd get labs. Next Appt Details Follow Up: via phone to repo rt test results, Reason: Progress Notes * PAVAN CARRERADOB:1970 (55 yo F)Acc No.[id number]:09/11/2025 Progress Notes Patient: PAVAN RUIZ Provider: RODRI San :1970 A ge:55 Y S ex:Female Date:09/11/2025 Address:[address] [place], [place] [phone] Pcp:Stevie Etienne Subjective: * Chief Complaints: * 1 . Body aches. * HPI: E NT/respiratory: Pt states this been going on for like 2 weeks, and she was here last week and was started on bactrim for a staph infection that showed up on her TEN panel, she has had 3 days worth of abx and feels no better. She still is having upper body aches, a horrible headache, and the rash seems to be getting worse. 55 year old female presents with c/o sore throat f eels scratchy. c/o Short of Breath. c/o headache. c/o dizziness. c/o body aches.? Denies : cough. D enies : nasal congestion. D enies : Fever. D enies : ear pain. D enies : Chest Pain. D enies : chest congestion. G astroenterology: c/o Vomiting. Denies : Heartburn. D enies : Nausea. D enies : Diarrhea. D ermatology: c/o rash P t states the rash been there for almost 2 weeks?. * ROS: C ARDIOLOGY: no C hest pain. n o P alpitations. E NDOCRINOLOGY: no P olydypsia. n o P olyuria. U ROLOGY: no D ifficulty urinating. n [...] *Please review and pick correct strength-formulation from [employer] options. If intended option is not shown, discontinue and re-order from Quick Search*, Taking Jackson 3 1000 MG PO WITH MEAL Q DAY , Notes to Pharmacist: *Please review and pick correct strength-formulation from ISI [employer] options. If intended option is not shown, [...] tablet by mouth once daily , Taking Bactrim DS 800-160 MG Tablet 1 tablet Orally twice a day , Discontinued Medrol 4 MG Tablet Therapy Pack as directed Orally , Medication List reviewed and reconciled with the patient * Allergies: D icyclomine: rash/hives, Wheat Dextrin. Objective: * Vitals: W t: 137.8, Temp: 98.3, BP: 130/70, HR: 93, Nurse: pe, Ht: 63, BMI:24.41. * Examination: G eneral Examination: General Appearance: [...] Exam: I ntact, gait normal. Skin: t he circular area of erythema on the upper left breast and on the upper left thigh are much larger, still nontender, not pruritic, there are multiple other circular lesions on the body that have formed since the last visit. P eripheral pulses: n ormal (2+) bilaterally. E xtremities: n o leg edema. Assessment: * Assessment: 1. A cute URI - J06.9 (Primary) 2 . B deneen aches - R52 3 .?Rash - R21 4 . S taph aureus infection - A49.01 Plan: * Treatment: Value Reference Range A ntistreptolysin O AB <20 <20-200.0 - IU/mL * Donna Rosado 09/11/2025 10:48:54 AM EDT >room 10, Cele Lopes 09/15/2025 01:36:18 PM EDT > See phone encounter ?LAB: P-Lyme Disease (B. burgorferi), IgG/IgM, NILSA, Serum (Collection Date & Time - 09/11/2025 10:00 AM)* Value Reference Range B burgdorferi (Lyme Disease) IgG Positive A Negative - * B burgdorferi (Lyme Disease) IgM Positive A Negative - * Donna Rosado 09/11/2025 10:48:54 AM EDT >room 10, Cele Lopes 09/15/2025 01:36:18 PM EDT > See phone encounter ?LAB: P-Comprehensive Metabolic Panel (CMP) (Collection Date & Time - 09/11/2025 10:00 AM)* Value Reference Range A /G Ratio 1.5 1.1-2.5 - * A lbumin 4.1 3.5-5.3 - g/dL * A lkaline Phosphatase 247 H 35-121 - IU/L * A LT (SGPT) 60 H <5-47 - IU/L * A ST (SGOT) 38 <5-40 - IU/L * B ilirubin, Total 0.4 <0.2-1.2 - mg/dL * B UN 18 6-20 - mg/dL * C alcium 8.9 8.6-10.4 - mg/dL * C hloride 98 97-108 - mmol/L * C O2 28 20-32 - mmol/L * C reatinine 0.89 0.50-1.00 - mg/dL * G lucose 92 65-99 - mg/dL * P otassium 4.4 3.5-5.3 - mmol/L * S odium 138 135-145 - mmol/L * P rotein 6.9 6.0-8.3 - g/dL * e GFR by Creatinine 76 >59 - mL/min/1.73m2 * Donna Rosado 09/11/2025 10:48:54 AM EDT >room 10, Cele Lopes 09/15/2025 01:36:18 PM EDT > See phone encounter ?LAB: P-CPK (Collection Date & Time - 09/11/2025 10:00 AM)* Value Reference Range C reatine Kinase 30 20-180 - U/L * Donna Rosado 09/11/2025 10:48:54 AM EDT >room 10, Cele Lopes 09/15/2025 01:36:18 PM EDT > See phone encounter ?LAB: P-Arthritis Panel, [facility] (Collection Date & Time - 09/11/2025 10:00 AM)* Value Reference Range A ntinuclear Antibodies (ALEXANDR) Result Note SEE COMMENT - * A ntinuclear Antibodies (ALEXANDR) Screen, Reflex ALEXANDR 9 Panel POSITIVE A Negative - * C CP Antibodies <0.5 <0.5-3.0 - U/mL * C -Reactive Protein (CRP) 0.24 <0.50 - mg/dL * E rythrocyte Sedimentation Rate (ESR), Automated 7 <31 - mm/hr * R heumatoid Factor <10 <14.1 - IU/mL * Donna Rosado 09/11/2025 10:48:54 AM EDT >room 10, Cele Lopes 09/15/2025 01:36:18 PM EDT > See phone encounter ?LAB: CBC Venipuncture (in house) (Collection Date & Time - 09/11/2025)* Value Reference Range w bc 8.3 3.5 - 10 * l ymph 12.5 15 - 50 * m id 5.5 2 - 15 * g ran 82.0 35 - 80 * r bc 4.46 3.5 - 5.5 * h gb 12.8 11.5 - 16.5 * h ct 38.3 35 - 55 * m cv 85.8 75 - 100 * m ch 28.6 25 - 35 * m chc 33.3 31 - 38 * p latlet 591 100 - 400 * Lidya Licea 09/11/2025 12:00:33 PM EDT > Provider reviewed results while patient in office. Notes: The steroids helped the body aches. Discussed with Dr. Salgado and he examined the patient as well. Will start on another round of steroids and get labs.??2.?Staph aureus infection? Start Cefdinir Capsule, 300 MG, 1 cap(s), Orally, Two times a day, 10 days, 20 Capsule, Refills 0. ? Notes: Will change abx and get labs. ?? * Labs: * L ab: P-Antinuclear Antibodies (ALEXANDR) 9 Panel w/o Screen (Collection Date & Time - 09/11/2025 10:00 AM) Value Reference Range C entromere Antibodies <0.2 0.0-0.9 - AI * C hromatin Antibodies <0.2 0.0-0.9 - AI * d sDNA Antibodies 1 0-4 - IU/mL * J o-1 Antibodies <0.2 0.0-0.9 - AI * R DOG DAY CARE ATTENDANT Antibodies 1.0 H 0.0-0.9 - AI * S cleroderma (SCL-70) Antibodies <0.2 0.0-0.9 - AI * S mith Antibodies IgG <0.2 0.0-0.9 - AI * S S-A Autoantibodies IgG <0.2 0.0-0.9 - AI * S S-B Autoantibodies IgG <0.2 0.0-0.9 - AI * [facility], IT support 09/12/2025 06:35:09 : This order was created by the Interface. Cele Mireles 09/15/2025 01:36:18 PM EDT > See phone encounter * Procedure Codes: 8 5025 CBC WITH AUTO DIFF, 55317 VENIPUNCT, ROUTINE* * Follow Up: v ia phone to report test results * Images: Billing Information: * Visit Code: 57681 Office Visit, Est Pt., Level 4. * Procedure Codes: 73713 CBC WITH AUTO DIFF. 43157 VENIPUNCT, ROUTINE*. * Electronic signature of RODRI Peacock on 10/10/2025 at 06:49 AM EST Sign off status: Pending * Provider: RODRI San Date: 1 Generated for Printi ng/Faxing/eTransmitting on: 12/10/2024 06:49 AM EST History and Physical Notes * HPI (History of Present Illness) Category Sub-Category Detail Notes Category Not es ENT/respiratory sore throat feels scratchy ear pain Short of Breath Chest Pain cough Fever headache chest congestion nasal congestion dizziness body aches Dermatology rash Pt states the rash been ther e for almost 2 weeks Gastroenterology Vomiting Diarrhea Nausea Heartburn Examination Category Sub-Category Detail Notes Category Not es General Examination HEENT: nose congest ed, sclera and conjunctiva clear, PERRLA, TM's normal, translucent Heart: RSR Lungs: clear to auscultatio n Abdomen: bowel sounds present , soft and nontender Extremities: no leg edema General Appearance: mildly ill but in no acute distress Skin: the circular area of erythema on the upper left breast and on the upper left thigh are much larger, still nontender, not pruritic, there are multiple other circular lesions on the body that have formed since the last visit Neurologic Exam: Intact, gait normal Neck: supple, no lymphaden opathy Oral cavity: minimal erythema Peripheral pulses: normal (2+) bilatera lly Chest: normal shape and exp ansion
--- OUTSIDE RECORDS SUMMARY | 2025-10-10 06:48 | XMS_ITS | Clinical Summary ---
Author Organization Healthcare Address [address] [place] [address] Care Team Providers Care Box Order Person Name Role Phone Donna Rosado Primary Care Provider [phone] Bob Heredia MD Unavailable [phone] Allergies Active Allergy Reactions Criticality Noted Date Comments Other Hives Medium 12/12/2023 Vibramycin Wheat Cough,Diarrhea,Shortness of breath High 0 12/12/2023 Medications * This document contains information received from the source organization and may not represent a complete record from that organization. Biotin 10 MG capsule 1 capsule 1 (one) time each day. Active cholecalcifero l (Vitamin D-3) 50 MCG (1999 UT) capsule 1 capsule (50 mcg) 1 [...] 1 (one) time each day. 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 08/23/2016 Resolved Problems Problem Noted Date Diagnosed Date Resolved Date Syncope and collapse 04/05/2023 025 Shortness of breath 03/21/2023 08/10/20 25 Chest pain 03/21/2023 08/10/2025 Syncope 03/21/2023 08/10/2025 Immunizations Immunization Administration Dates Next Due Influenza, Unspecified 07/25/2017 Tdap 04/05/2021 Family History Medical History Relation Name Comments Fainting Maternal Grandmother [place] Cardiac disorder Mother Diabetes Mother Heart attack Mother Hypertension Mother Stroke Paternal Grandmother Rocio Relation Name Status Comments Maternal Grandmother [place] Mother Paternal Grandmother Rocio Social History Tobacco [...] - PCV) 2020 [facility]-Depression Screening 04/05/2024 04/05/2023 [id number] Vaccine ( - season) 2025 10/18/2023, 06/08/2022, 08/18/2021, Additional history exists [facility]-Influenza [...] patient's age to complete this topic Insurance [facility] Care Teams Box Order Person Relationship Specialty Start Date End Date Donna Rosado PA [address] [place] [address] PCP - General 02/24/23 Bob Heredia MD [id number] [place] [address] Consulting Physician Neurology 12/12/23
--- OUTSIDE RECORDS SUMMARY | 2025-10-10 06:49 | XMS_ITS | Data Portability ---
Author Organization [facility] [place] [facility] Address [address] [place] [address] Care Team Providers Care Child Nutrition Assistant Name Role Phone GÓMEZ DOZIER Primary Care Provider Assessment Encounter Date Assessment Date Assessment LastModified by Organization Details LastModified Time 09/03/2019 09/03/2019 09/25/17 vit B12 1025 <-- 02/01/17 B12 364, 09/25/17 vit D 34 <-- 02/01/17 vit D 27 02/01/17 ALEXANDR 1:160 fine-coarse speckled TSH wnl [email or web address] Not available 09/03/2019 14:34:54 01/13/2021 01/13/2021 09/25/17 vit B12 1025 <-- 02/01/17 B12 364, 09/25/17 vit D 34 <-- 02/01/17 vit D 27 02/01/17 ALEXANDR 1:160 fine-coarse speckled TSH wnl [email or web address] Not available 01/13/2021 10:02:02 05/02/2022 05/02/2022 Assessment: [...] recorded. Referral breast surgery referral 2021 022 [email or web address] Not available 08:00:14 Procedures None recorded. Surgeries None recorded. Imaging None recorded. Medication Orders Ajovy Syringe 225 mg/1.5 mL subcutaneo us 2020 021 [facility], [address], [place], [address], 08:17:14 rizatripta n 10 mg disintegra ting tablet 2020 021 [facility], [address], [place], [address], 10:59:50 Ajovy Syringe 225 mg/1.5 mL subcutaneo us 2018 019 [facility], [address], [place], [address], 9 17:20:09 rizatripta n 10 mg disintegra ting tablet 2018 019 [facility], [address], [place], [address], 9 17:20:13 Patient TargetsNo targets recorded. Patient Instructions Encounter Date Encounter Id Patient Instructions Last Modified By Organization Details Last Modified Time 09/03/2019 [id number] Migraine: - continue Ajovy - recommend trial [...] aspirin 81 mg daily with food - Maxalt-ELECTRIC VEHICLE ELECTRICIAN at onset migraine -- Can repeat Maxalt [...] - goal level vit D25-OH is 50-70. [email or web address] Not available 09/03/2019 17:18:55 01/13/2021 [id number] Migraine: - continue Ajovy - recommend trial [...] aspirin 81 mg daily with food - Maxalt-ELECTRIC VEHICLE ELECTRICIAN at onset migraine -- Can repeat Maxalt [...] level vit D25-OH is 50-70. Not available 01/13/2021 10:02:02 01/11/2022 [id number] 51 yo new pt her e today [...] for us to get her imaging from [facility]. RTC PRN Not available 01/11/2022 13:38:36 05/02/2022 [id number] __60_ minutes wa s spent on this [...] 44 NG/mL >=30 NG/mL normal Not Available [facility] [address] [facility], [place], [address], 01/09/2020 10:50:13 Result Notes None recorded. Problems Name Problem SNOMED Code Status Onset Date Resolution Date Notes Provider Name and Address Organization Details Recorded Time Headache disorder 426794711 Active 2015 From Automated Load;Provi jamshid: Jeanne Ocampo;Stat us: Active Not Available [facility] 7 06:09:28 Recurrent painful ophthalmo plegic neuropath y 51751697 Active 2015 From Automated Load;Provi jamshid: Jeanne Ocampo;Stat us: Active Not Available [facility] 7 06:09:28 Refractor y migraine without aura 309277728 Active 2015 From Automated Load;Provi jamshid: Jeanne Ocampo;Stat us: Active Not Available [facility] 7 07:39:26 Problem Notes None recorded. Procedures Surgical History Date Name Laterality Status Provider Name and Address Organization Details Recorded Time 10/20/20 21 Date of Last Mammogram completed [facility] 04/27/2022 16:27:41 11/20/19 10 Knee arthroscopy/surg terrence completed [facility] 04/27/2022 16:26:36 11/20/19 07 Carpal tunnel surgery completed [facility] 04/27/2022 16:26:52 11/20/19 00 Hysterectomy completed [facility] 04/27/2022 16:26:06 Imaging Results None recorded. Procedure [...] Available Not Available No t Available [facility] active Not Available Not Available Not Available [...] Updated DateTime 01/11/2022 162.56 cm 23.5 kg/m2 70583.15 g Ricci Shah [facility] 01/11/2022 12:59:27 Date Recorded Body height Body mass index (BMI) Body weight Heart rate Systolic And Diastolic Provider Name and Address Organization Details Last Updated DateTime 01/13/2021 162.56 cm 25.2 kg/m2 30903.08 g 74 /min 110/78 mm[Hg] Kelle Aranda [facility] 1 10:00:14 Date Recorded Body height Body mass index (BMI) Body weight Body temperature Heart rate Respiratory rate Systolic And Diastolic Provider Name and Address Organization Details Last Updated DateTime 2 162.56 cm 23.5 kg/m2 40454.1 5 g 98 [degF] 70 /min 18 /min 118/76 mm[Hg] Dorota Soria [facility] 2 08:52:07 Date Recorded Body height Body mass index (BMI) Body weight Heart rate Systolic And Diastolic Provider Name and Address Organization Details Last Updated DateTime 09/03/2019 162.56 cm 21.1 kg/m2 38895.86 g 74 /min 112/80 mm[Hg] [facility] 13:51:58 Social History Question Answer Notes LastModified by Organizat ion Details LastModified Time Tobacco Smoking Status Never 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 [employer] Information not available 11/07/2016 Mental Status None [...] Failure (CHF) N Eczema N Migraines Y Stroke N Diverticulitis N Asthma N COPD N Crohn's Disease N Breast Problem Y Liver Disease N Heart Attack (DC) N Heart Disease N Hypertension N Kidney [...] Diagnosis SNOMED-CT Code Diagnosis ICD10 Code Diagnosis IMO Codes Diagnosis Note [id number] JEANNE OCAMPO MD NEUROLOGY [facility] [address] [place] [address] 02/01/2017 09:12:46 02/01/2017 10:11:29 Refractory migraine without aura 690586691 G43.711 no longer refractory since starting Topamax [...] and off as soon as feasible per CLINICAL REIMBURSEMENT SPECIALIST/PCP; counseled on concerns for increased vascular risk in pt with complicate d migraine (numbness one side), and migraine with aura, particular on estrogen; Fatigue 84799080 R53.83 On Nexium. May not be absorbing nutrients, increased risk of dementia. Will check TSH vitamin D and B12 levels Muscle fasciculation 824 65422 R25.3 involuntar y muscle twitches in L thumb and abdomen- will check magnesium, TSH, ALEXANDR Migraine w ithout aura, not refractory 529138020 G43.009 Migraine with aura, complicate d migraine. No known FH. Pt on estrogen. No PMH miscarriag e or blood clots other than previous menstrual cycles with heavy clotting. - Will check ALEXANDR and TSH - Continue ASA 81mg - Continue Topamax 25 mg qd, increase to bid after 3 d - Take Zofran at onset of migraine +/- Maxalt-ELECTRIC VEHICLE ELECTRICIAN if migraine builds. -- Can repeat Maxalt after 2 hours but do not exceed more than 2 a day - Continue MVI - Start B12 and vitamin D - RTC 6 months Dizziness 835351064 R42 new problem, effecting balance but no vertigo; sounds to be vestibular , but mild and no signs on exam; denies sinus congestion ; + PND, rhinorrhea ; cannot exclude inflammato ry- will check ALEXANDR, B12, TSH- pt counseled regarding potential causes - low threshold for MRI brain if symptoms worsen [id number] JEANNE OCAMPO MD [facility]UROLOGY [facility] [address] [facility] [address] [place] [address] 09/25/2017 13:49:46 09/25/2017 14:55:50 Migraine without aura, not refractory 834107311 G43.009 Migraine with aura, complicate d migraine. [...] Take Zofran at onset of migraine +/- Maxalt-ELECTRIC VEHICLE ELECTRICIAN if migraine builds. -- Can repeat Maxalt [...] and off as soon as feasible per CLINICAL REIMBURSEMENT SPECIALIST/PCP; counseled on concerns for increased vascular risk in pt with complicate d migraine (numbness one side), and migraine with aura, particular ly on estrogen Dizziness 327526603 R42 improvemen t in dizziness; effecting balance [...] for MRI brain if symptoms worsen Fatigue 71718673 R53.83 Found to have low B12 on 02/01/17 now supplement ing daily w/ 1500 mcg SL form. On Nexium. May not be absorbing nutrients, increased risk of dementia.- continue vitamin supplement s- repeat vit B12 and vit D levels CC: Gómez Dozier MD Vitamin D deficiency 347 90215 E55.9 02/01/17 Vitamin D 27 --> 34Pt was rx 50,000 units weekly and is now supplement ing 2000 iu daily-Will repeat levels today. Seasonal allergy 1172733 04 J30.2 -Continue Flonase- NeilMed Sinus Rinse w/distille d water and Zyrtec daily. [id number] JEANNE OCAMPO MD NEUROLOGY [facility] [address] [facility] [facility] [place] [address] 10/16/2018 13:37:27 10/16/2018 15:30:37 Recurrent painful ophthalmoplegic neuropathy 18285537 G43.B0 Migraine w ithout aura, not refractory 790687717 G43.009 Migraine with aura, complicate d migraine. [...] use at work- Continue ASA 81 mg- Maxalt-ELECTRIC VEHICLE ELECTRICIAN at onset migraine-- Can repeat Maxalt after [...] and off as soon as feasible per CLINICAL REIMBURSEMENT SPECIALIST/PCP; counseled on concerns for increased vascular risk in pt with complicate d migraine (numbness one side), and migraine with aura, particular ly on estrogen Fatigue 40950943 R53.83 Found to have low B12 on [...] lmic migraine pts. Vitamin D deficiency 347 56566 E55.9 02/01/17 Vitamin D 27 --> 09/2017 34Pt was rx 50,000 units weekly and is now supplement ing 2000 iu daily-Will repeat levels today. Dizziness 431203103 R42 improvemen t in dizziness; effecting balance [...] if symptoms worsen High antibody titer 4417 47998 R76.0 ALEXANDR 1:160 - will repeat [id number] JEANNE OCAMPO MD NEUROLOGY [facility] [address] [place] [address] 10/18/2018 09:42:52 10/18/2018 10:31:01 [id number] JEANNE OCAMPO MD NEUROLOGY [facility] [address] [place] [address] 09/03/2019 13:45:44 09/03/2019 14:53:00 Recurrent painful ophthalmoplegic neuropathy 08460237 G43.B0 Migraine w ithout aura, not refractory 313987205 G43.009 Migraine with aura, complicate d migraine. [...] use at work- Continue ASA 81 mg- Maxalt-ELECTRIC VEHICLE ELECTRICIAN at onset migraine-- Can repeat Maxalt after [...] and off as soon as feasible per CLINICAL REIMBURSEMENT SPECIALIST/PCP; counseled on concerns for increased vascular risk in pt with complicate d migraine (numbness one side), and migraine with aura, particular ly on estrogen High antibody titer 4417 70237 R76.0 ALEXANDR 1:160 (02/01/17) --> negative (10/16/18) Vitamin D deficiency 347 02787 E55.9 02/01/17 Vitamin D 27 --> 09/2017 [...] goal level vit D25-OH is 50-70. Dizziness 046804033 R42 improvemen t in dizziness; effecting balance [...] threshold for MRI brain if symptoms worsen [id number] JEANNE OCAMPO MD [facility] [address] [place] [address] 01/08/2020 11:46:09 01/08/2020 15:47:11 [id number] JEANNE OCAMPO MD NEUROLOGY [facility] [address] [place] [address] 01/13/2021 09:29:08 01/13/2021 11:02:03 Recurrent painful ophthalmoplegic neuropathy 78605702 G43.B0 Migraine w ithout aura, not refractory 863605326 G43.009 Migraine with aura, complicate d migraine. [...] use at work- Continue ASA 81 mg- Maxalt-ELECTRIC VEHICLE ELECTRICIAN at onset migraine-- Can repeat Maxalt after [...] and off as soon as feasible per CLINICAL REIMBURSEMENT SPECIALIST/PCP; counseled on concerns for increased vascular risk in pt with complicate d migraine (numbness one side), and migraine with aura, particular ly on estrogen High antibody titer 4417 69918 R76.0 ALEXANDR 1:160 (02/01/17) --> negative (10/16/18) Vitamin D deficiency 347 69636 E55.9 02/01/17 Vitamin D 27 --> 09/2017 [...] goal level vit D25-OH is 50-70. Dizziness 726400850 R42 improvemen t in dizziness; effecting balance [...] PCP: RODRI Pozo and Gómez Dozier MD [id number] RODRI KIRK-Donnie [facility]IMBURSEMENT SPECIAL[facility] [address] [place] [address] 01/11/2022 12:12:21 01/11/2022 13:39:08 Pain of breast 95368934 N64.4 [id number] TEE ROJO MD BREAST SURGERY [facility] [address] [place] [address] 05/02/2022 08:49:07 05/03/2022 09:21:01 Pain of breast 70244776 N64.4 Health Concerns Section Related Observation LastModified by Organization Detai ls LastModified Time None Recorded Concern Status LastModified by Organization Details LastModified Time None Recorded Advance Directives Directive None Recorded Payers Insurance Date Sequence Insurance Name Policy Number Policy Giron Covered Member ID Giron Member ID Guarantor Name 05/02/2022 1 [place] [id number] R Cesar Liao [id number] Cesar Liao 01/13/2021 1 [employer] [id number] Cesar S Liao [id number] Cesar Liao Notes Date Note Type [...] she is not working. JEANNE OCAMPO MD [address] [place] [address], [address], [facility] 09/03/2019 17:19:48 01/13/2021 text/html 1 yr f/u migraine Cesar is doing so much better since she started Ajovy. It seems to wear off at about 3 weeks, then she typically has only about 1 migraine that week before the injections. It's not bad, pretty easily treated with Maxalt-ELECTRIC VEHICLE ELECTRICIAN. No Zofran needed. She gave it up [...] joint or bone pains. JEANNE OCAMPO MD [address] [place] [address], [address], [facility] 01/13/2021 10:59:34 01/11/2022 text/html ROS as noted in the HPI Years ago she started having some left sided breast painHad a mammogram in Oct 2021 and a breast ultrasound last week [facility] a [facility] [...] Had her mammogram and then went to [facility] for pap in Oct and at that [...] to go away ANGÉLICA ESTEVES PA-C [address] [place], [address], [place] [facility] 01/11/2022 13:38:44 05/02/2022 text/html Cesar Liao is [...] history of malignancy. TEE ROJO MD [address] [place], [address], [facility] 05/02/2022 13:21:36 OBGyn Episode Ob Episode Information Episode Created Date Number of Fetuses Patient Bloodtype Patient rh Status Prepregnancy Weight lbs Domestic Partner Domestic Partner Phone Father Name Residence Counselor Status 04/27/20 22 1 CLOSED Fetus Data [...]
--- OUTSIDE RECORDS SUMMARY | 2025-10-10 06:50 | XMS_ITS | Patient Health Record ---
Author Organization [facility] Address [address] [facility] [address] [id number] Care Team Providers Care Hide Mill Worker Name Role Phone Stevie Etienne Primary Care Provider Donna Rosado Unavailable [phone] Allergies Allergen (clinical drug ingredient) Drug/Non Drug [...] AGRATIO 1.7 1.1-1.8 ALP 116 38-126 U/L Influenza Screen (in house) Reviewed date:09/05/2025 04:40:28 [...] PM Interpretation: Performing Lab: Notes/Report: Result: neg CBC Venipuncture (in house) Reviewed date:09/11/2025 01:27:35 [...] Interpretation: Performing Lab: Notes/Report: Test performed by [facility] [address] [place], [place] [address]Index [address] , [address], [place] [address] West Nelson MD, P 3 Armament/Ordnance Ima Technician CLIA: [id number] Chromatin Antibodies <0.2 0.0-0.[address] is performed by Multiplex Bead Immunoassay methodology. Centromere Antibodies <0.2 0.0-0.9 AI This t est is performed by Multiplex Bead Immunoassay methodology. Adler Antibodies IgG <0.2 0.0-0.[address] is performed by Multiplex Bead Immunoassay methodology. FOOD AND NUTRITION SUPERVISOR Antibodies 1.0 0.0-0.9 AI This test is [...] Interpretation: Performing Lab: Notes/Report: Test performed by [facility] [address] [place] [address] , [address], [place] [address] West Nelson MD, P 3 Armament/Ordnance Ima Technician CLIA: [id number] Antistreptolysin O AB <20 <20-200.0 IU/mL P-Lyme Disease (B. burgodorf ravinder), IgG/IgM, NILSA, Serum Reviewed date:09/15/2025 01:36:23 PM Interpretation: Performing Lab: Notes/Report: Test performed by [facility] [address] [place], [place] [address] , [address], [place] [address] West Nelson MD, P 3 Armament/Ordnance Ima Technician CLIA: [id number] B burgdorferi (Lyme Disease) IgG Positive Negative B burgdorferi (Lyme Disease) IgM Positive Negative P-Comprehensive Metabolic Pa polina (CMP) Reviewed date:09/15/2025 01:36:23 PM Interpretation: Performing Lab: Notes/Report: Test performed by [facility] [address] [place] [address] , [address], [place] [address] West Nelson MD, P 3 Armament/Ordnance Ima Technician CLIA: [id number] Sodium 138 135-145 mmol/L Potassium 4.4 3.5-5.3 [...] Interpretation: Performing Lab: Notes/Report: Test performed by [facility] [address] [place] [address] , [address], [place] [address] West Nelson MD, P 3 Armament/Ordnance Ima Technician CLIA: [id number] Creatine Kinase 30 20-180 U/L [facility]th[facility] Panel, [facility] Reviewed date:09/15/2025 01:36:24 PM Interpretation: Performing Lab: Notes/Report: Test performed by [facility] [address] [place] [address] , [address], [place] [address] West Nelson MD, P 3 Armament/Ordnance Ima Technician CLIA: [id number] Erythrocyte Sedimentation Ra te (ESR), Automated 7 <31 mm/hr Rheumatoid Factor <10 <14.1 IU/mL C-Reactive Protein (CRP) 0.24 <0.50 mg/dL Antinuclear Antibodies (ALEXANDR) Screen, Reflex ALEXANDR 9 Panel POSITIVE Negative This test is performed by Multiplex Bead Immunoassay methodology. CCP Antibodies <0.5 <0.5-3.0 U/mL Antinuclear Antibodies (ALEXANDR) Result Note SEE COMMENT For positive Autoantibodies, please refer to the interpretive chart here: [email or web address] H-VITAMIN D Reviewed date:06/25/2025 08:14:03 AM Interpretation:33.3 Performing Lab: Notes/Report: TVITD 33.3 30-100 ng/mL Deficient <20 ng/mL Insufficient 20-30 ng/mL Sufficient 30-100 ng/mL Potential Toxicity >100 ng/mL H-Folate Reviewed date:06/25/2025 08:14:03 AM Interpretation:Normal Performing Lab: Notes/Report: FOL 2.77 Normal Adult: 2.76->20 ng/mL Folate Deficent: 1.04-2.79ng/mL H-VITAMIN B12 Reviewed date:06/25/2025 08:14:03 AM Interpretation:Normal Performing Lab: Notes/Report: VITB12 867 239-931 pg/mL H-Retic count Reviewed date:06/25/2025 08:14:03 AM Interpretation:Normal Performing Lab: Notes/Report: AYANA 1.5 0.9-3.2 % H-Ferritin Reviewed date:06/25/2025 08:14:04 AM Interpretation:Normal Performing Lab: Notes/Report: APRIL 23.9 11.1-264 ng/ml H-Iron Reviewed date:06/25/2025 08:14:04 AM Interpretation:Normal Performing Lab: Notes/Report: FE 77 37-170 ug/dL H-CBC Reviewed date:06/13/2025 03:52:48 PM Interpretation: Performing [...] AGRATIO 1.1 1.1-1.8 ALP 93 38-126 U/L H-VITAMIN D Reviewed date:07/29/2025 02:12:03 PM Interpretation: Performing Lab: Notes/Report: H-Folate Reviewed date:07/29/2025 02:11:45 PM Interpretation: Performing Lab: Notes/Report: H-VITAMIN B12 Reviewed date:07/29/2025 02:12:18 PM Interpretation: Performing Lab: Notes/Report: H-Retic count Reviewed date:07/29/2025 02:12:38 PM Interpretation: Performing Lab: Notes/Report: H-Ferritin Reviewed date:07/29/2025 02:13:00 PM Interpretation: Performing Lab: Notes/Report: H-Iron Reviewed date:07/29/2025 02:11:16 PM Interpretation: Performing Lab: Notes/Report: Medications Medication SIG (Take, Route, Frequency, Duration) Notes Start Date End Date Status Doxycycline Monohydrate 100 MG 1 capsule Orally twice a day; Duration: 28 days 09/16/2025 Active [place] 3 1000 MG PO WITH MEAL Q DAY *Please revie w and pick correct strength-formulat ion from Video Recruit options. If intended option is not shown, discontinue and re-order from Quick Search* Active Vitamin B-12 1000 MCG 1 HANG SUBLINGUALLY ONCE A DAY *Please review and pick correct strength-formulat ion from Video Recruit options. If intended option is not shown, [...] tab(s) orally 1 time a day Active Bactrim DS 800-160 MG 1 tablet Orally twice a day; Duration: 10 days 09/08/2025 Active Aspirin Adult Low Dose 81 MG 1 tab(s) orally once a day Active Atorvastatin Calcium 10 MG Take 1 tablet by mouth once daily; Duration: 90 Active Cefdinir 300 MG 1 cap(s) Orally Two [...] Once a day; Duration: 90 days Active EpiPen 2-Aleksandar 0.3 MG/0.3ML as directed Injection Active Ajovy 225 MG/1.5ML as directed subcutaneously once a month; Duration: 30 days Active Betamethasone Dipropionate Aug 0.05 % 1 lidia applied topically 2 times a day 06/14/2022 Active Immunizations Vaccine Route Administration Date Status [...] Risk Notes Problem Gastroesophageal reflux disease (disorder) (635679320) GERD [Gastroesophageal reflux disease] (530.81) Active confirmed Problem Vitamin D deficiency (68652668) Vitamin D deficiency (E55.9) Active confirmed Problem Migraine (51433803) Migraine (G43.909) Active c onfirmed Problem Hypoglycemia (457160658) Hypoglycemia (E16.2) Active confirmed Problem Osteopenia (944180437) Osteopenia (M85.80) Active confirmed Problem Iron deficiency anemia (14543059) Iron deficiency anemia (D50.9) Active confirmed Problem Plantar wart of left foot (87254237105343870) Plantar wart of left foot (B07.0) Active confirmed Problem Mixed anxiety and depressive disorder (072026268) Depression with anxiety (F41.8) Active confirmed Problem Gastroesophageal reflux disease without esophagitis (166156293) Gastroesophageal reflux disease without esophagitis (K21.9) Active confirmed Problem Migraine (31423141) Migraine wit hout status migrainosus, not intractable, unspecified migraine type (G43.909) Active confirmed Problem Mitral valve prolapse (774802581) Mitral valve prolapse (I34.1) Active confirmed Problem Dysphagia (29904050) Dysphagia, unspecified type (R13.10) Active confirmed Problem Problem with balance (891006293) Balance problems (R26.89) Active confirmed Problem Dyslipidemia (418790651) Dyslipidemia (E78.5) Active confirmed Problem Leukopenia (14312970) Leukopenia, unspecified type (D72.819) Active confirmed Problem Plantar wart of both feet (53465012237725052) Plantar wart of both feet (B07.0) Active confirmed Problem Seasonal affective disorder (175851860) Seasonal affective disorder (F33.8) Active confirmed Problem Social phobia (48237811) Social phobia involving fear of public speaking (F40.10) Active confirmed Vital Signs Heart Rate 93 /min 09/11/2025 Blood pressure diastolic 70 mm Hg 09/11/2025 Height 63 in 09/11/2025 Blood pressure systolic 130 mm Hg 09/11/2025 Weight 137.8 lbs 09/11/2025 BMI 24.41 kg/m2 09/11/2025 Encounters Encounter Location Date Provider Diagnosis [facility] [address] [facility] [address] [facility] [address] [place] [id number] 12/19/2024 Donna Rosado Acute URI J06.9 [facility] [address] [place] [id number] 05/14/2025 Donna Rosado Dizziness R42 ; Hypoglycemia E16.2 ; Dyslipidemia E78.5 ; Vitamin D deficiency E55.9 and Gastroesophageal reflux disease without esophagitis K21.9 [facility] [address] [place], [place] [id number] 09/04/2025 Donna Crowdy Acute URI J06.9 ; Zachary dy aches R52 and Rash R21 [facility] [address] [place], [place] [id number] 09/11/2025 Donna Crowdy Acute URI J06.9 ; Zachary dy aches R52 ; Rash R21 and Staph aureus infection A49.01 [facility] [address] [place], [place] [id number] 05/15/2025 Donna Crowdy [facility] [address] [place], [place] [id number] 06/02/2025 Stevie Asherton [facility] [address] [place], [place] [id number] 06/09/2025 Stevie Asherton Leukopenia, unspecif ied type D72.819 and Elevated liver enzymes R74.8 [facility] [address] [place], [place] [id number] 06/13/2025 Donna Crowdy Vitamin D deficiency E55.9 and Iron deficiency anemia D50.9 [facility] [address] [place], [place] [id number] 06/25/2025 Donna Crowdy [facility] [address] [place], [place] [id number] 09/05/2025 Donna Crowdy [facility] [address] [place], [place] [id number] 09/05/2025 Stevie Asherton [facility] [address] [place], [place] [id number] 09/08/2025 Stevie Asherton [facility] [address] [place], [place] [id number] 09/15/2025 Donna Ashlee Assessments Encounter Date Diagnosis (ICD Code) Assessment [...] 06/09/2025 Leukopenia, unspecified type (ICD-10 - D72.819) 09/11/2025 Body aches (ICD-10 - R52) The steroids helped the body aches. Discussed with Dr. Salgado and he examined the patient as well. Will start on another round of steroids and get labs. 09/11/2025 Acute URI (ICD-10 - J06.9) 09/04/2025 Body aches (ICD-10 - R52) 09/04/2025 Acute URI (ICD-10 - J06.9) 06/13/2025 Vitamin D deficiency (ICD-10 - E55.9) 12/19/2024 Acute URI (ICD-10 - J06.9) fluids, rest, supportive measures for fever/symptom relief, has cough medication at home 06/13/2025 Iron deficiency anemia (ICD-10 - D50.9) 09/11/2025 Rash (ICD-10 - R21) 05/14/2025 Dyslipidemia (ICD-10 - E78.5) h 06/09/2025 Elevated liver enzymes (ICD-10 - R74.8) 09/04/2025 Rash (ICD-10 - R21) 05/14/2025 Vitamin D deficiency (ICD-10 - E55.9) h 09/11/2025 Staph aureus infection (ICD-10 - A49.01) Will change abx and get labs. 05/14/2025 Gastroesophageal reflux disease without esophagitis (ICD-10 - K21.9) h Plan Of Treatment No Information Insurance Providers Payer Name Payer Address Payer Phone Subscriber Number Group Number Insured Name Patient Relationship to Insured Coverage Start Date Coverage End Date [employer] [address] [place] [address] [id number] PAVAN CARRERA Self - patient is the insured Medical (General) History Medical History History ICD Code Neuro-Cardiac Syncope mitral valve prolapse, Dx: 2004 PFO Surgical History Surgery Date(Month/Year) Hysterectomy 1999 carpal tunnel release rt. hand 12/27 R knee scope 10-28 Hospitalization History Reason Date(Month/Year) see above
--- OUTSIDE RECORDS SUMMARY | 2025-10-10 06:50 | XMS_ITS | Clinical Summary ---
Author Organization [facility] ([place], [place], [place], [place], [place]) Address [address] [place] [address] Care Team Providers Care Scientific Editor Name Role Phone Donna Rosado Primary Care Provider [phone] Allergies No known active allergies Medications aspirin [...] THREE TIMES DAILY NEEDED 02/08/20 23 Active fexprwcc-xnxh-bv lic acid (Tab-A-Meliza Multivitamin w-iron) tablet Activ [...] Noted Date Diagnosed Date Family history of [place] (myocardial infarction) Migraines 01/10/2024 01/10/2024 Aspiration of [...] Date Yousuf rded Speak language other than Kazakh at home Not on file 12/21/2023 Want help with school or training Not on file 12/21/2023 Substance Use Answer Date Recorded Used prescription meds for non-medical reasons N ot on file 12/21/2023 Used illegal drugs past 12 months Not on file 12/21/2023 Comments Unknown Sex and Gender Information Value Date Recorded Sex Assigned at Female 01/11/2024 10:19 AM TELEVISION WRITER Legal Sex Female 3:20 PM TELEVISION WRITER Gender Identity Female 01/11/2024 10:19 AM TELEVISION WRITER Sexual Orientation Straight 01/11/2024 10 :19 AM TELEVISION WRITER Last Filed Vital Signs Vital Sign Reading [...] Breast Cancer Screening 2010 Lipid Panel 2015 Tobacco Cessation Counseling and Screening (12+) 01/12/2025 01/12/2024 COVID-19 VACCINE (6 - 2024-2 6 season) 2025 10/18/2023, 06/08/2022, 08/18/2021, Additional history exists Influenza Vaccine (#1) 2025 09/19/2023 DTAP/TDAP/TD VACCINES (2 - T d or Tdap) 04/05/2031 04/05/2021 Shingles Vaccine (Zoster) Completed 05/05/2022, Insurance BLUE CROSS/BLUE SHIELD Care Teams Scientific Editor Relationship Specialty Start Date End Date Donna Rosado PA [address] [place] [address] PCP - General Physician Cardiac Monitor 12/21/23
--- OUTSIDE RECORDS SUMMARY | 2025-10-10 06:50 | XMS_ITS | Referral Summary ---
Author Organization [facility] ([place], [place], [place], [place], [place]) Address [address] [place] [address] Care Team Providers Care Truck Repair Supervisor Name Role Phone Donna Rosado Primary Care Provider [phone] Allergies No known active allergies Medications aspirin [...] THREE TIMES DAILY NEEDED 02/08/20 23 Active dgagslea-keok-nd lic acid (Tab-A-Meliza Multivitamin w-iron) tablet Activ [...] Noted Date Diagnosed Date Family history of [place] (myocardial infarction) Migraines 01/10/2024 01/10/2024 Aspiration of [...] Date Yousuf rded Speak language other than Greenlandic at home Not on file 12/21/2023 Want help with school or training Not on file 12/21/2023 Substance Use Answer Date Recorded Used prescription meds for non-medical reasons N ot on file 12/21/2023 Used illegal drugs past 12 months Not on file 12/21/2023 Comments Unknown Sex and Gender Information Value Date Recorded Sex Assigned at Female 01/11/2024 10:19 AM BALCONY WORKER Legal Sex Female 3:20 PM BALCONY WORKER Gender Identity Female 01/11/2024 10:19 AM BALCONY WORKER Sexual Orientation Straight 01/11/2024 10 :19 AM BALCONY WORKER Last Filed Vital Signs Vital Sign Reading [...] file Insurance BLUE CROSS/BLUE SHIELD Care Teams Truck Repair Supervisor Relationship Specialty Start Date End Date Donna Rosado PA [address] [place] [address] PCP - General Physician Dairy Lab Technician 12/21/23
--- OUTSIDE RECORDS SUMMARY | 2025-10-10 06:50 | XMS_ITS | Clinical Summary ---
Author Organization [facility] Address [address] [place] [address] Phone [email or web address] Care Team Providers Care Cable Weaver Name Role Phone No, Provider Primary Care [...] 1 (one) time per week. Active rizatriptan ROOFING LAYER (MAXALT-ROOFING LAYER) 10 MG dispersible tablet Take 1 tablet [...] day. Active ergocalciferol (VITAMIN D-2) 1.25 MG (41681 UT) capsuleIndicati ons:No longer on high dose [...] FOBT Test 1970 HIV Screening 1970 HPV only / HPV + Pap 1970 Hepatitis C Screening 1970 Pap only testing 1970 Sigmoidoscopy 1970 Hep B Infection Screening - Triple Screen 1988 Hepatitis B Immunization (1 of 3 - 19+ 3-dose series) 1989 Tetanus Diphtheria and Pertu ssis Immunization (1 - Tdap) 1989 Breast Cancer Screening 2000 Annual Preventive Exam 06/11/2019 06/11/2018 Pneumococcal: 50+ Years (1 o f 1 - PCV) 2020 Zoster Immunization (1 of 2) 2020 Covid-19 Immunization (1 - 2 025-26 season) 2025 Influenza Immunization (#1) 2025 HIB Immunization Aged [...] Insurance NICK IN [employer]AY 5 Care Teams Cable Weaver Relationship Specialty Start Date End Date No, Provider [place], [place] PCP - General Family Medicine 09/30/19
--- NOTE | 2025-10-10 17:57 | XR_ITS ---
PROCEDURE INFORMATION: Exam: XR Left Foot Exam date and time: 10/10/2025 5:59 PM Age: 55 years old Clinical indication: Pain; Foot; Left TECHNIQUE: Imaging protocol: Radiologic exam of the left foot. Views: 1 or 2 views. Total images: 2 COMPARISON: CR XR KNEE LT 3V 07/24/2024 11:25 AM FINDINGS: Bones/joints: Degenerative changes of the 1st metatarsophalangeal joint. Impression per. No evidence of acute fracture or dislocation. Soft tissues: No soft tissue swelling. IMPRESSION: No evidence of acute fracture or dislocation.
--- NOTE | 2025-10-10 17:58 | XR_ITS ---
PROCEDURE INFORMATION: Exam: XR Right Hand Exam date and time: 10/10/2025 5:59 PM Age: 55 years old Clinical indication: Pain; Hand; Right TECHNIQUE: Imaging protocol: Radiologic exam of the right hand. Views: 3 or more views. Total images: 3 COMPARISON: CR XR WRIST RT MIN 3V 01/26/2024 1:36 PM FINDINGS: Bones/joints: No evidence of acute fracture or dislocation. Soft tissues: Soft tissues are within normal limits. IMPRESSION: No evidence of acute fracture or dislocation.
--- NOTE | 2025-10-10 17:58 | XR_ITS ---
PROCEDURE INFORMATION: Exam: XR Left Hand Exam date and time: 10/10/2025 5:59 PM Age: 55 years old Clinical indication: Pain; Hand; Left TECHNIQUE: Imaging protocol: Radiologic exam of the left hand. Views: 3 or more views. Total images: 3 COMPARISON: CR XR WRIST LT MIN 3V 05/15/2024 8:41 AM FINDINGS: Bones/joints: Status post ORIF distal radius. No evidence of acute fracture or dislocation. Soft tissues: Soft tissues are within normal limits. IMPRESSION: No evidence of acute fracture or dislocation.
== END 2025-10-10 23:59 | disposition home or self-care (01) ==
LOC: RAD 06:46
PROVIDERS: PCP Physician Assistant; Visit Provider Internal Medicine Rheumatology
DX: M15.0 Primary generalized (osteo)arthritis (principal); R76.0 Raised antibody titer
CPT/HCPCS: 73130; 73620